=== PATIENT | female | born 1940 | race Caucasian/White ===

== ENCOUNTER 2016-12-28 15:07 | Inpatient (IN) ==
[2016-12-28] MEDS ORDERED: Ipratropium/Albuterol Neb 3 ML IH ONE (15:22)
[2016-12-28] MEDS ORDERED: methylPREDNISolone 125 MG/2 ML VIAL IVP ONE (15:22)
[2016-12-28 16:24] LABS: Basophils % 0.3 %; Eosinophils # 0.1 K/mcL (0.0-0.6); Eosinophils % 2.3 %; Hematocrit 37.1 % (35.3-44.9); Hemoglobin 11.7 g/dL (11.5-15.4); Immature Granulocytes % 0.3 % (0-4); Lymphocytes # 1.1 K/mcL (0.6-4.6); Lymphocytes % 18.6 %; Mean Corpuscular HGB Conc 31.5 g/dL (31.6-35.5); Mean Corpuscular Hemoglobin 30.3 pg (28.0-33.3); Mean Corpuscular Volume 96.1 fL (83.0-100.0); Monocytes # 0.5 K/mcL (0.0-1.3); Monocytes % 8.9 %; Platelet Count 183 K/mcL (140-400); Red Blood Count 3.86 M/mcL (3.82-4.97); Red Cell Distribution Width 13.1 % (11.5-14.5); Segmented Neutrophils % 69.6 %
[2016-12-28 16:32] LABS: INR 2.8; Prothrombin Time 31.6 Seconds (9.4-12.1)
[2016-12-28 16:34] LABS: BUN/Creatinine Ratio 21 (6-26); Blood Urea Nitrogen 13 mg/dL (7-20); Calcium 8.9 mg/dL (8.6-10.8); Carbon Dioxide 38 mEq/L (19-29); Chloride 89 mEq/L (98-109); Glucose 83 mg/dL (70-99); Osmolality,Calculated 277 (280-300); Potassium 4.4 mEq/L (3.5-4.5); Sodium 134 mEq/L (136-145); eGFR For African Americans > 60 (> 60); eGFR For Non-African Americans > 60 (> 60)
--- NOTE | 2016-12-28 16:52 | Emergency Department Note ---
Disposition Clinical Impression: COPD exacerbation Disposition: Admitted As Inpatient Condition: Fair SOB HPI - General Chief Complaint: ED Shortness of Breath/Dyspnea Stated Complaint: NASRIN Time Seen by Provider: 12/28/16 15:17 Source: EMS Limitations: no limitations Nursing Notes Reviewed: Yes Vital Signs Reviewed: Yes - History of Present Illness Patient is here for evaluation of shortness of breath. Patient has had several episodes similar secondary to COPD exacerbation. Patient states that it is been progressive over the last couple days. Cough that is nonproductive in nature. Patient is in the room speaks full sentences but does appear winded. Patient has end-stage COPD body type regarding retracted supra clavicular muscles and using intercostal muscles in the tripod position. Patient has overall decrease in breath sounds with wheezing most significant on the right. - Related Data Home Medications Medication Instructions Recorded Confirmed Albuterol Sulfate [Albuterol 2 puff IH Q4H PRN 08/10/15 12/28/16 Inhaler] Aspirin Enteric Coated [Aspirin EC] 81 mg PO DAILY 08/10/15 12/28/16 Furosemide 40 mg PO BID 08/10/15 12/28/16 Ipratropium/Albuterol Sulfate 1 puff IH QID 08/10/15 12/28/16 [Combivent Respimat Inhal [place]] Metoprolol Succinate 100 mg PO DAILY #0 08/10/15 12/28/16 Warfarin [Coumadin] 3.5 mg PO SUTH 08/10/15 12/28/16 Ipratropium/Albuterol Neb [Duoneb] 3 ml IH QID PRN 12/28/16 12/28/16 Oxygen 2 l NS AD 12/28/16 12/28/16 Warfarin [Coumadin] 3 mg PO MOTUWEFRSA 12/28/16 12/28/16 Allergies Allergy/AdvReac Type Severity Reaction Status Date / Time Erythromycin Base AdvReac Unknown Verified 12/28/16 17:02 nicotine [From Nicoderm CQ] AdvReac Rash Verified 12/28/16 17:02 All systems ED: reviewed and negative except as stated. Constitutional: Reports: chills. Denies: fever Cardiovascular: Reports: palpitations Respiratory: Reports: cough, dyspnea, wheezes Gastrointestinal: Denies: abdominal pain, nausea, vomiting Genitourinary: Denies: urgency Endocrine: Denies: fatigue Past Medical History - Past Medical History Medical history: Reports: atrial fibrillation, CHF, COPD, hyperlipidemia, hypertension Surgical history: Reports: cancer surgery, knee replacement, orthopedic, other Psychiatric history: Reports: no psych history - Social History Smoking Status: Former smoker Smokeless Tobacco Status: No Alcohol use: Reports: none Drug use: Reports: none Physical Exam - General Limitations: no limitations General appearance: alert - Head Head exam: atraumatic, normocephalic - Eye Eye exam: Present: normal appearance - ENT ENT exam: normal exam, normal oropharynx - Neck Neck exam: Present: normal inspection - Chest Chest inspection: Present: normal inspection - Respiratory Respiratory exam: Present: respiratory distress, wheezes (Diffuse with overall decreased breath sounds.) - Cardiovascular Cardiovascular exam: Present: tachycardia, irregular rhythm - Abdominal Exam Abdominal exam: Present: soft, Non-Tender - Extremities Exam Extremities exam: Present: normal inspection, pedal edema. Absent: tenderness - Back Exam Back exam: Present: normal inspection - Neurological Exam Neurological exam: Present: alert, oriented X3 - Psychiatric Psychiatric exam: Present: normal affect, normal mood - Skin Skin exam: Present: warm, dry Course - Reevaluation(s) Reevaluation #1: Patient with moderate improvement with DuoNeb's. Patient still mildly tachypnic and will will need further evaluation hospital - Consultations Consultation #1: Discussed with Dr. Menjivar. Pt accepted for admission. Vital Signs Temperature 98.0 F 12/28/16 15:08 Pulse Rate 112 12/28/16 15:08 Respiratory Rate 24 12/28/16 15:08 Blood Pressure 102/64 12/28/16 15:08 O2 Sat by Pulse Oximetry 98 12/28/16 15:08 Temperature 97.6 F 12/29/16 00:00 Pulse Rate 108 12/29/16 05:00 Respiratory Rate 18 12/29/16 05:00 Blood Pressure 102/76 12/29/16 05:00 O2 Sat by Pulse Oximetry 99 12/29/16 06:09 Oxygen Delivery Oxygen Delivery Nasal Cannula Shortness of Breath/Dyspnea - Medical Records Medical records reviewed: Yes I reviewed the patient's medical records. - Lab Data Lab results reviewed: Yes I reviewed the patient's lab results. Result diagrams: 12/29/16 06:22 12/29/16 06:22 Lab Results 12/28/16 12/28/1612/28/17 Range/Units 16:02 16:02 16:02 WBC 5.7 (4.3-11.1) K/mcL RBC 3.86 (3.82-4.97) M/mcL Hgb 11.7 (11.5-15.4) g/dL Hct 37.1 (35.3-44.9) % MCV 96.1 (83.0-100.0) fL MCH 30.3 (28.0-33.3) pg MCHC 31.5 L (31.6-35.5) g/dL RDW 13.1 (11.5-14.5) % Plt Count 183 (140-400) K/mcL MPV 10.0 (9.4-12.4) fL Immature Gran % 0.3 (0-4) % Seg Neutrophils % 69.6 % Lymphocytes % 18.6 % Monocytes % 8.9 % Eosinophils % 2.3 % Basophils % 0.3 % Neutrophils # 4.0 (1.6-8.9) K/mcL Lymphocytes # 1.1 (0.6-4.6) K/mcL Monocytes # 0.5 (0.0-1.3) K/mcL Eosinophils # 0.1 (0.0-0.6) K/mcL Basophils # 0.0 (0.0-0.2) K/mcL PT 31.6 H (9.4-12.1) Seconds INR 2.8 Sodium 134 L (136-145) mEq/L Potassium 4.4 (3.5-4.5) mEq/L Chloride 89 L (98-109) mEq/L Carbon Dioxide 38 H (19-29) mEq/L BUN 13 (7-20) mg/dL Creatinine 0.62 (0.57-1.11) mg/dL Est GFR ( Amer) > 60 (> 60) Est GFR (Non-Af Amer) > 60 (> 60) BUN/Creatinine Ratio 21 (6-26) Glucose 83 (70-99) mg/dL Calculated Osmolality 277 L (280-300) Calcium 8.9 (8.6-10.8) mg/dL Troponin I (0-0.03) ng/mL B-Natriuretic Peptide (0-100) pg/mL 12/28/16 12/28/16 Range/Units 16:02 16:02 WBC (4.3-11.1) K/mcL RBC (3.82-4.97) M/mcL Hgb (11.5-15.4) g/dL Hct (35.3-44.9) % MCV (83.0-100.0) fL MCH (28.0-33.3) pg MCHC (31.6-35.5) g/dL RDW (11.5-14.5) % Plt Count (140-400) K/mcL MPV (9.4-12.4) fL Immature Gran % (0-4) % Seg Neutrophils % % Lymphocytes % % Monocytes % % Eosinophils % % Basophils % % Neutrophils # (1.6-8.9) K/mcL Lymphocytes # (0.6-4.6) K/mcL Monocytes # (0.0-1.3) K/mcL Eosinophils # (0.0-0.6) K/mcL Basophils # (0.0-0.2) K/mcL PT (9.4-12.1) Seconds INR Sodium (136-145) mEq/L Potassium (3.5-4.5) mEq/L Chloride (98-109) mEq/L Carbon Dioxide (19-29) mEq/L BUN (7-20) mg/dL Creatinine (0.57-1.11) mg/dL Est GFR ( Amer) (> 60) Est GFR (Non-Af Amer) (> 60) BUN/Creatinine Ratio (6-26) Glucose (70-99) mg/dL Calculated Osmolality (280-300) Calcium (8.6-10.8) mg/dL Troponin I 0.01 (0-0.03) ng/mL B-Natriuretic Peptide 733 H (0-100) pg/mL - Radiology Data Radiology results reviewed: Yes I reviewed the patient's radiology results. Chest X-Ray 12/28/16 15:22 IMPRESSION: 1. Emphysema. No superimposed acute pulmonary finding to account for patient's shortness of breath. 2. Stable mild enlargement of the cardiac silhouette. D/ / Nicolás Contreras MD / Nicolás Contreras MD Interpreting Provider: Nicolás Contreras MD - EKG Data EKG attestation: Yes I reviewed and interpreted this EKG. EKG results narrative: EKG shows atrial fibrillation with rapid ventricular response. Rate of 124. QRS 101. QTC 397. Mild depressions in the lead of V4. Incomplete right renal branch block consistent with prior EKG of 08/10/15. Attestation Statement - Attestation Attestation: I examined this patient and my medical decision-making was reviewed with the [employer]/PA/Advanced Practice Nurse/Resident Physician. I agree with the documented findings, disposition and treatment plan as described except to the extent set forth below. Patient to the emergency department with a chief complaint of shortness of breath. Dry cough. States she is trying to cough up phlegm but she cannot. No fever. On examination she is dyspneic. Diffuse expiratory wheezing. Tachypneic. Plan. Patient improved with nebs. Requiring 3 L of oxygen. Will be admitted.
[2016-12-28] MEDS ORDERED: Naloxone 0.4 MG/ML INJ IVP PRN (19:34)
[2016-12-28] MEDS ORDERED: Ipratropium/Albuterol Neb 3 ML IH PRN (19:36)
--- NOTE | 2016-12-28 20:43 | Internal Med Progress Note ---
Date of Encounter: 12/28/16 Time of Encounter: 19:45 - Constitutional Vitals: Temp Pulse Resp BP Pulse Ox 98.1 F 117 22 111/85 94 L 12/28/16 18:04 12/28/16 18:04 12/28/16 19:55 12/28/16 18:04 12/28/16 19:55 Internal Medicine: Result - Labs CBC & Chem 7: 12/28/16 16:02 12/28/16 16:02 - ABG Interpretation ABG results: PT/INR, D-dimer PT 31.6 Seconds (9.4-12.1) H 12/28/16 16:02 Consult Discharge Plan - Plan Referrals: Narcisa Ramos, [employer] [Primary Care Provider] -
[2016-12-28] MEDS ORDERED: NON-FORMULARY MEDICATION 1 EACH EACH (Oxygen [Oxygen] 2 L) NS SCH (20:45)
--- NOTE | 2016-12-28 20:46 | Internal Med History&Physical ---
Date of Encounter: 12/28/16 Time of Encounter: 19:45 Assessment and Plan (1) Acute and chronic respiratory failure ([id number]) Current visit: Yes Status: Acute Admit inpatient. Due to acute exacerbation of COPD. Continue O2 supplementation. Treat underlying COPD. Patient at high risk for complications. She will stay in hospital for at least 2 nights. Qualifiers: Respiratory failure complication: hypoxia Qualified Code(s): J96.21 - Acute and chronic respiratory failure with hypoxia (2) A-fib Current visit: Yes Status: Acute Atrial fibrillation with rapid rate response. Will start patient on IV Cardizem drip. Also on metoprolol for rate control. On Coumadin for anticoagulation and INR is therapeutic. Qualifiers: Atrial fibrillation type: persistent Qualified Code(s): I48.1 - Persistent atrial fibrillation (3) Acute exacerbation of chronic obstructive pulmonary disease (COPD) Current visit: Yes Status: Acute Acute exacerbation of COPD. Will treat with IV steroids, scheduled and when necessary bronchodilator. Patient not having sputum production. We will hold off on antibiotics for now. (4) DVT prophylaxis Current visit: No Status: Acute On Coumadin (5) Atrial fibrillation with rapid ventricular response Current visit: Yes Status: Acute Internal Medicine - H&P: HPI Chief complaint: Shortness of breath Admitted From: Emergency Dept Plans for Post Hospital Care: Home History of present illness: Ms. Loomis is a 76 year old female with history of COPD and chronic respiratory failure on 2 L home oxygen, atrial fibrillation presented to the ER with complaints of worsening shortness of breath over the past couple of days. She denies any palpitations or chest pain. She has been having dry cough. No fever chills or night sweats. No hemoptysis. No nausea or vomiting. She has been wheezing and has been using her bronchodilators frequently. Past Med Surg Social Fam HX - Past Medical History Medical history: atrial fibrillation, CHF, COPD, hyperlipidemia, hypertension Psychiatric history: no psych history - Past Surgical History Surgical History: cancer surgery, knee replacement, orthopedic, other - Social History Smoking Status: Former smoker Smokeless Tobacco Status: No Alcohol use: none Drug use: none - Family History Father History Unknown: Yes Living Status: Age at : 79 Cause of : CVA Hx Family Cardiac Disorders: Yes Hx Family Respiratory Disorders: No Hx Family Cancer: No Hx Family GI Disorders: No Hx Family Genitourinary Disorders: No Hx Family Endocrine Disorder: Yes (DM) Hx Family Musculoskeletal Disorders: No Hx Family Neuromuscular Disorders: No Hx Family Neurologic Disorders: No Hx Family HEENT Disorders: No Hx Family Autoimmune Disorders: No Hx Family Reproductive Disorders: No Hx Family Psychosocial Disorders: No Hx Family Medical Disorders: No Mother History Unknown: Yes Living Status: Age at : 78 Cause of : Heart failure Hx Family Cardiac Disorders: Yes Hx Family Respiratory Disorders: Yes Hx Family Cancer: No Hx Family GI Disorders: No Hx Family Genitourinary Disorders: No Hx Family Endocrine Disorder: No Hx Family Musculoskeletal Disorders: No Hx Family Neuromuscular Disorders: No Hx Family Neurologic Disorders: No Hx Family HEENT Disorders: No Hx Family Autoimmune Disorders: No Hx Family Reproductive Disorders: No Hx Family Psychosocial Disorders: No Hx Family Medical Disorders: No Internal Medicine - H&P: Meds Albuterol Sulfate [Albuterol Inhaler] 2 puff IH Q4H PRN 08/10/15 [History] Aspirin Enteric Coated [Aspirin EC] 81 mg PO DAILY 08/10/15 [History] Furosemide 40 mg PO BID 08/10/15 [History] Ipratropium/Albuterol Sulfate [Combivent Respimat Inhal [place]] 1 puff IH QID [History] Metoprolol Succinate 100 mg PO DAILY #0 08/10/15 [History] Warfarin [Coumadin] 3.5 mg PO SUTH 08/10/15 [History] Ipratropium/Albuterol Neb [Duoneb] 3 ml IH QID PRN 12/28/16 [History] Oxygen 2 l NS AD 12/28/16 [History] Warfarin [Coumadin] 3 mg PO MOTUWEFRSA 12/28/16 [History] Allergies Erythromycin Base Adverse Reaction (Verified 12/28/16 17:02) Unknown patient unsure nicotine [From Nicoderm CQ] Adverse Reaction (Verified 12/28/16 17:02) Rash All Systems PM: A 10-system review of systems was performed and is negative for pertinent findings except as documented above in the HPI. - Constitutional Constitutional: malaise, no chills, no fever(s), no night sweats - EENT Eyes: no change in vision, no discharge, no pain, no photophobia Ears: no ear discharge, no ear pain, no tinnitus Nose, mouth and throat: no dysphagia, no nasal discharge, no neck pain, no sore throat - Cardiovascular Cardiovascular ROS IM: no chest pain, no diaphoresis, no dyspnea, no lightheadedness, no palpitations, no syncope - Respiratory Respiratory: cough, dyspnea, wheezing, no excessive phlegm production - Gastrointestinal Gastrointestinal: no abdominal pain, no diarrhea, no hematemesis, no hematochezia, no melena, no nausea, no vomiting - Genitourinary Genitourinary: no change in urinary stream, no dysuria, no flank pain, no hematuria - Musculoskeletal Musculoskeletal ROS IM: no numbness, no tingling - Integumentary Integumentary IM: no rash, no unusual bruising - Neurological Neurological ROS: no confusion, no convulsions, no focal weakness, no numbness, no tingling, no tremor(s) - Hematologic/Lymphatic Hematologic/Lymphatic: no easy bruising - Constitutional Vitals: Temp Pulse Resp BP Pulse Ox 98.1 F 117 22 111/85 94 L 12/28/16 18:04 12/28/16 18:04 12/28/16 19:55 12/28/16 18:04 12/28/16 19:55 General appearance: Present: cooperative, A&O X 3, answers questions appropriately Exam: Moderate distress - Eye Eye exam: Present: EOMI, PERRL, conjuntiva pink, sclera anicteric - Neck Neck exam general surgery: Present: supple, trachea midline. Absent: lymphadenopathy - Respiratory Respiratory exam: Present: prolonged expiratory phase, wheezes (Bilateral end expiratory wheezes). Absent: accessory muscle use, rales, rhonchi - Cardiovascular Cardiovascular exam: Present: irregular rhythm, +S1, +S2, tachycardia. Absent: diastolic murmur, gallop, rubs, systolic murmur - Extremities Exam Extremities exam: Present: warm, radial pulses palpable and symetrical. Absent : calf tenderness, cyanotic, pedal edema - Neurological Exam Neurological exam: Present: alert, CN II-XII intact, oriented X3, no focal deficits. Absent: facial droop, speech deficit - Skin Skin exam: Present: dry, intact Internal Med - H&P Results - Labs CBC & Chem 7: 12/28/16 16:02 12/28/16 16:02 - Attending Attestation This document has been at least partially created by [employer] recognition technology by Dr. Calvert. Errors in grammar, wording or other phrases may exist. If errors are found after the documentation is signed, they will be addressed individually in the addendum section of this document when appropriate.
[2016-12-28] MEDS: *HR* Warfarin 3 MG TABLET PO STA ×2 (21:21→21:34)
[2016-12-28] MEDS: Furosemide 40 MG TABLET PO SCH ×2 (21:21→21:34)
[2016-12-28] MEDS ORDERED: 0.9 % Sodium Chloride 1,000 ML ONE (21:45)
[2016-12-28] MEDS: methylPREDNISolone 125 MG/2 ML VIAL IVP SCH (23:18)
[2016-12-29] MEDS: Ipratropium/Albuterol Neb 3 ML IH SCH ×7 (00:04→23:50)
[2016-12-29 07:04] LABS: Basophils % 0.3 %; Hemoglobin 11.5 g/dL (11.5-15.4); Immature Granulocytes % 0.5 % (0-4); Lymphocytes # 0.6 K/mcL (0.6-4.6); Lymphocytes % 15.4 %; Mean Corpuscular HGB Conc 31.1 g/dL (31.6-35.5); Mean Corpuscular Hemoglobin 29.8 pg (28.0-33.3); Mean Corpuscular Volume 95.9 fL (83.0-100.0); Monocytes # 0.1 K/mcL (0.0-1.3); Monocytes % 2.6 %; Neutrophils # 3.1 K/mcL (1.6-8.9); Platelet Count 176 K/mcL (140-400); Red Blood Count 3.86 M/mcL (3.82-4.97); Red Cell Distribution Width 12.8 % (11.5-14.5); Segmented Neutrophils % 81.2 %
[2016-12-29 07:06] LABS: INR 2.8; Prothrombin Time 31.4 Seconds (9.4-12.1)
[2016-12-29 07:18] LABS: BUN/Creatinine Ratio 21 (6-26); Blood Urea Nitrogen 13 mg/dL (7-20); Calcium 8.6 mg/dL (8.6-10.8); Carbon Dioxide 33 mEq/L (19-29); Chloride 94 mEq/L (98-109); Glucose 138 mg/dL (70-99); Osmolality,Calculated 282 (280-300); Potassium 4.4 mEq/L (3.5-4.5); Sodium 135 mEq/L (136-145); eGFR For African Americans > 60 (> 60); eGFR For Non-African Americans > 60 (> 60)
[2016-12-29] MEDS ORDERED: Metoprolol 100 MG TABLET PO SCH (09:00)
[2016-12-29] MEDS: methylPREDNISolone 125 MG/2 ML VIAL IVP SCH ×3 (09:00→23:03)
[2016-12-29] MEDS: Aspirin Enteric Coated 81 MG Tablet PO SCH (09:01)
[2016-12-29] MEDS: Furosemide 40 MG TABLET PO SCH ×2 (09:01→17:34)
[2016-12-29] MEDS ORDERED: *HR* Digoxin 0.25 MG TABLET PO SCH (09:30)
--- NOTE | 2016-12-29 12:27 | Electrocardiograph Report ---
[address] [place], [place] [address] Test Date: 2016-12-28 Pat Name: Germaine Loomis Department: 105 Room: 2NE22 Gender: F [employer]: : [id number] Requested By: Justin Arteaga Order Number: [id number] Reading MD: Andreas De MD Measurements Intervals [place] Rate: 124 P: ME: 0 QRS: 89 QRSD: 101 T: 34 QT: 323 QTc: 397 Interpretive Statements ATRIAL FIBRILLATION WITH RAPID VENTRICULAR RESPONSE INDETERMINATE AXIS INCOMPLETE RIGHT BUNDLE BRANCH BLOCK BASELINE ARTIFACT Electronically Signed On 12-29-2016 12:25:23 EST by Andreas De MD
[2016-12-29] MEDS: *HR* Digoxin 0.5 MG/2 ML AMPUL IVP SCH ×2 (15:05→21:03)
--- NOTE | 2016-12-29 16:28 | Internal Med Progress Note ---
Date of Encounter: 12/29/16 Time of Encounter: 10:00 - Assessment and plan (1) DVT prophylaxis Current Visit: Yes Status: Acute Assessment and plan: Patient is on Coumadin. INR is therapeutic (2) Acute exacerbation of chronic obstructive pulmonary disease (COPD) Current Visit: Yes Status: Acute Assessment and plan: Has improved after treatment. We will continue IV steroids, bronchodilator, and oxygen supportive therapy. (3) Atrial fibrillation with rapid ventricular response Current Visit: Yes Status: Acute Assessment and plan: Still having tachycardia. Cardizem drip is on hold because of hypotension. On digoxin. We will also treat underlying COPD exacerbation. Closer follow-up vitals and heart rate. On Coumadin for anticoagulation, INR is therapeutic. (4) Diastolic CHF Current Visit: No Status: Chronic Assessment and plan: Continue home medications. Qualifiers: Congestive heart failure chronicity: chronic Qualified Code(s): I50.32 - Chronic diastolic (congestive) heart failure - Time Spent With Patient 25 - 35 minutes - Subjective Interval history: Patient is a 76-year-old female admitted for shortness of breath. Patient was found afebrile with rapid response in emergency room. Past medical history is significant for A. fib, CHF, COPD, hyperlipidemia, hypertension. I saw and examined the patient. She is still in acute respiratory distress, heart rate is still high. BP is at lower side at 80s. Cardizem drip is on hold because BP is low. Will give patient digoxin 0.25 mg iv q6hr x 4. Continue Solumendrol for COPD exacerbation. - Constitutional Vitals: Temp Pulse Resp BP Pulse Ox 98.2 F 121 18 101/72 96 12/29/16 15:24 12/29/16 15:24 12/29/16 15:24 12/29/16 15:24 12/29/16 15:24 General appearance: Present: cooperative, A&O X 3, answers questions appropriately - Head Head exam: Present: atraumatic, normocephalic - Eye Eye exam: Present: PERRL, conjuntiva pink, sclera anicteric Pupils: Present: PERRL - Neck Neck exam general surgery: Present: supple, trachea midline. Absent: lymphadenopathy - Respiratory Respiratory exam: Present: CTAB. Absent: accessory muscle use, rales, rhonchi, wheezes - Cardiovascular Cardiovascular exam: Present: irregular rhythm, +S1, +S2, tachycardia. Absent: diastolic murmur, gallop, rubs, systolic murmur - GI/Abdominal GI/Abdominal exam: Present: normal bowel sounds, soft, no peritoneal signs. Absent: distended, tenderness - Extremities Exam Extremities exam: Present: warm, radial pulses palpable and symetrical. Absent : calf tenderness, cyanotic, pedal edema - Neurological Exam Neurological exam: Present: CN II-XII intact, oriented X3, no focal deficits. Absent: pronater drift, facial droop, speech deficit - Skin Skin exam: Present: dry, intact Internal Medicine: Result - Labs CBC & Chem 7: 12/29/16 06:22 12/29/16 06:22 - ABG Interpretation ABG results: PT/INR, D-dimer PT 31.4 Seconds (9.4-12.1) H 12/29/16 06:22 Consult Discharge Plan - Plan Referrals: Narcisa Ramos CNP [Primary Care Provider] -
[2016-12-29] MEDS ORDERED: *HR* Warfarin 3 MG TABLET PO SCH (18:00)
[2016-12-29] MEDS ORDERED: Warfarin perPT PO PRN (18:00)
[2016-12-29] MEDS: Levofloxacin 750 MG/150 ML 750 MG/150 ML BAG IVPB SCH (21:04)
[2016-12-30] MEDS: *HR* Digoxin 0.5 MG/2 ML AMPUL IVP SCH (02:15)
[2016-12-30] MEDS: Ipratropium/Albuterol Neb 3 ML IH SCH ×2 (03:32→07:26)
[2016-12-30 05:29] LABS: Basophils % 0.1 %; Hematocrit 31.6 % (35.3-44.9); Hemoglobin 10.5 g/dL (11.5-15.4); Immature Granulocytes % 0.7 % (0-4); Lymphocytes # 0.5 K/mcL (0.6-4.6); Lymphocytes % 5.5 %; Mean Corpuscular HGB Conc 33.2 g/dL (31.6-35.5); Mean Corpuscular Hemoglobin 30.8 pg (28.0-33.3); Mean Corpuscular Volume 92.7 fL (83.0-100.0); Mean Platelet Volume 10.4 fL (9.4-12.4); Monocytes # 0.3 K/mcL (0.0-1.3); Monocytes % 3.2 %; Neutrophils # 7.5 K/mcL (1.6-8.9); Platelet Count 165 K/mcL (140-400); Red Blood Count 3.41 M/mcL (3.82-4.97); Red Cell Distribution Width 12.8 % (11.5-14.5); Segmented Neutrophils % 90.5 %
[2016-12-30 05:41] LABS: INR 4.8; Prothrombin Time 54.3 Seconds (9.4-12.1)
[2016-12-30 05:52] LABS: BUN/Creatinine Ratio 24 (6-26); Blood Urea Nitrogen 15 mg/dL (7-20); Calcium 8.3 mg/dL (8.6-10.8); Carbon Dioxide 34 mEq/L (19-29); Chloride 91 mEq/L (98-109); Glucose 119 mg/dL (70-99); Osmolality,Calculated 282 (280-300); Potassium 3.8 mEq/L (3.5-4.5); Sodium 135 mEq/L (136-145); eGFR For African Americans > 60 (> 60); eGFR For Non-African Americans > 60 (> 60)
[2016-12-30] MEDS: methylPREDNISolone 125 MG/2 ML VIAL IVP SCH ×2 (09:35→16:52)
[2016-12-30] MEDS: Furosemide 40 MG TABLET PO SCH ×2 (09:36→16:52)
[2016-12-30] MEDS: Levofloxacin 750 MG/150 ML 750 MG/150 ML BAG IVPB SCH (09:36)
[2016-12-30] MEDS: Aspirin Enteric Coated 81 MG Tablet PO SCH (09:36)
[2016-12-30] MEDS: Budesonide/Formoterol 160/4.5 MDI IH SCH ×3 (11:35→23:06)
[2016-12-30] MEDS: Levalbuterol Neb 1.25 MG/3 ML IH SCH ×3 (11:35→22:56)
--- NOTE | 2016-12-30 17:02 | Internal Med Progress Note ---
Date of Encounter: 12/30/16 Time of Encounter: 10:00 - Assessment and plan (1) DVT prophylaxis Current Visit: Yes Status: Acute Assessment and plan: Patient is on Coumadin. INR is therapeutic (2) Acute exacerbation of chronic obstructive pulmonary disease (COPD) Current Visit: Yes Status: Acute Assessment and plan: Has improved after treatment. We will continue IV steroids, bronchodilator, and oxygen supportive therapy. Add Levaquin and Symbicort. (3) Atrial fibrillation with rapid ventricular response Current Visit: Yes Status: Acute Assessment and plan: Rate is well controlled now. Continue by mouth metoprolol. Patient said the Cardizem makes her sick. We will also treat underlying COPD exacerbation. Closer follow-up vitals and heart rate. On Coumadin for anticoagulation, INR is therapeutic. (4) Diastolic CHF Current Visit: No Status: Chronic Assessment and plan: Continue home medications. Qualifiers: Congestive heart failure chronicity: chronic Qualified Code(s): I50.32 - Chronic diastolic (congestive) heart failure - Time Spent With Patient 25 - 35 minutes - Subjective Interval history: Patient is a 76-year-old female admitted for shortness of breath. Patient was found afebrile with rapid response in emergency room. Past medical history is significant for A. fib, CHF, COPD, hyperlipidemia, hypertension. I saw and examined the patient. She is still in acute respiratory distress, heart rate get down to 90s. BP is at lower side at 90s by the tolerate metoprolol 50 mg. At the Levaquin and Symbicort for COPD exacerbation. Continue Solumendrol. - Constitutional Vitals: Temp Pulse Resp BP Pulse Ox 98.2 F 86 16 110/83 96 12/30/16 15:26 12/30/16 15:26 12/30/16 15:26 12/30/16 15:26 12/30/16 15:26 General appearance: Present: cooperative, A&O X 3, answers questions appropriately - Head Head exam: Present: atraumatic, normocephalic - Eye Eye exam: Present: PERRL, conjuntiva pink, sclera anicteric Pupils: Present: PERRL - Neck Neck exam general surgery: Present: supple, trachea midline. Absent: lymphadenopathy - Respiratory Respiratory exam: Present: CTAB, wheezes (Wheezes bilaterally). Absent: accessory muscle use, rales, rhonchi - Cardiovascular Cardiovascular exam: Present: RRR, +S1, +S2. Absent: diastolic murmur, gallop, rubs, systolic murmur - GI/Abdominal GI/Abdominal exam: Present: normal bowel sounds, soft, no peritoneal signs. Absent: distended, tenderness - Extremities Exam Extremities exam: Present: warm, radial pulses palpable and symetrical. Absent : calf tenderness, cyanotic, pedal edema - Neurological Exam Neurological exam: Present: CN II-XII intact, oriented X3, no focal deficits. Absent: pronater drift, facial droop, speech deficit - Skin Skin exam: Present: dry, intact Internal Medicine: Result - Labs CBC & Chem 7: 12/30/16 04:25 12/30/16 04:25 Labs: Short CBC 12/30/16 Range/Units 04:25 WBC 8.3 D (4.3-11.1) K/mcL Hgb 10.5 L (11.5-15.4) g/dL Hct 31.6 L (35.3-44.9) % Plt Count 165 (140-400) K/mcL Neutrophils # 7.5 (1.6-8.9) K/mcL BMP 12/30/16 04:25 Sodium 135 L Potassium 3.8 Chloride 91 L Carbon Dioxide 34 H BUN 15 Creatinine 0.62 Glucose 119 H Calcium 8.3 L - ABG Interpretation ABG results: PT/INR, D-dimer PT 54.3 Seconds (9.4-12.1) H* D 12/30/16 04:25 Consult Discharge Plan - Plan Referrals: Narcisa Ramos, [employer] [Primary Care Provider] -
[2016-12-31] MEDS: methylPREDNISolone 125 MG/2 ML VIAL IVP SCH ×3 (03:28→18:05)
[2016-12-31] MEDS: Levalbuterol Neb 1.25 MG/3 ML IH SCH ×4 (04:03→22:01)
[2016-12-31 06:49] LABS: Hematocrit 37.1 % (35.3-44.9); Hemoglobin 11.6 g/dL (11.5-15.4); Immature Granulocytes % 0.8 % (0-4); Lymphocytes % 5.8 %; Mean Corpuscular HGB Conc 31.3 g/dL (31.6-35.5); Mean Corpuscular Hemoglobin 29.6 pg (28.0-33.3); Mean Corpuscular Volume 94.6 fL (83.0-100.0); Mean Platelet Volume 10.3 fL (9.4-12.4); Monocytes % 6.6 %; Platelet Count 173 K/mcL (140-400); Red Blood Count 3.92 M/mcL (3.82-4.97); Red Cell Distribution Width 12.9 % (11.5-14.5); Segmented Neutrophils % 86.8 %
[2016-12-31 06:50] LABS: Lymphocytes # 0.4 K/mcL (0.6-4.6); Monocytes # 0.5 K/mcL (0.0-1.3); Neutrophils # 6.6 K/mcL (1.6-8.9)
[2016-12-31 06:55] LABS: INR 3.9
[2016-12-31 06:57] LABS: Prothrombin Time 44.3 Seconds (9.4-12.1)
[2016-12-31 07:05] LABS: BUN/Creatinine Ratio 26 (6-26); Blood Urea Nitrogen 16 mg/dL (7-20); Calcium 8.7 mg/dL (8.6-10.8); Chloride 89 mEq/L (98-109); Glucose 96 mg/dL (70-99); Osmolality,Calculated 283 (280-300); Potassium 3.9 mEq/L (3.5-4.5); Sodium 136 mEq/L (136-145); eGFR For African Americans > 60 (> 60); eGFR For Non-African Americans > 60 (> 60)
[2016-12-31 07:08] LABS: Carbon Dioxide 41 mEq/L (19-29)
[2016-12-31] MEDS: Furosemide 40 MG TABLET PO SCH ×2 (08:05→18:05)
[2016-12-31] MEDS: Levofloxacin 750 MG/150 ML 750 MG/150 ML BAG IVPB SCH (08:05)
[2016-12-31] MEDS: Aspirin Enteric Coated 81 MG Tablet PO SCH (08:05)
[2016-12-31 08:21] LABS: ABG Base Excess 19.6 mEq/L (-2.0 to 3.0); ABG HCO3 47.5 mEQ/L (21-27); ABG Oxygen Saturation 88 % (95-98); ABG PH 7.44 pH Units (7.32-7.45); ABG PO2 52 mmHg (85-104); ABG TCO2 49.6 mEq/L (20-26)
[2016-12-31 08:23] LABS: ABG PCO2 70 mmHg (35-45)
[2016-12-31 08:24] LABS: Blood Gas FiO2 34 %
[2016-12-31] MEDS ORDERED: Metoprolol 100 MG TABLET PO SCH (09:00)
[2016-12-31] MEDS: Budesonide/Formoterol 160/4.5 MDI IH SCH ×2 (11:54→22:06)
--- NOTE | 2016-12-31 15:30 | Internal Med Progress Note ---
Date of Encounter: 12/31/16 Time of Encounter: 10:00 - Assessment and plan (1) DVT prophylaxis Current Visit: Yes Status: Acute Assessment and plan: Patient is on Coumadin. Monitor INR (2) Acute exacerbation of chronic obstructive pulmonary disease (COPD) Current Visit: Yes Status: Acute Assessment and plan: Has improved after treatment. We will continue IV steroids, bronchodilator, and oxygen supportive therapy. Add Levaquin and Symbicort. (3) Atrial fibrillation with rapid ventricular response Current Visit: Yes Status: Acute Assessment and plan: Rate is well controlled now. Continue by mouth metoprolol. Patient said the Cardizem makes her sick. We will also treat underlying COPD exacerbation. Closer follow-up vitals and heart rate. On Coumadin for anticoagulation, Monitor INR (4) Diastolic CHF Current Visit: No Status: Chronic Assessment and plan: Continue home medications. Qualifiers: Congestive heart failure chronicity: chronic Qualified Code(s): I50.32 - Chronic diastolic (congestive) heart failure - Subjective Interval history: Patient is a 76-year-old female admitted for shortness of breath. Patient was found a Fib with rapid ventricular response in emergency room. Past medical history is significant for A. fib, CHF, COPD, hyperlipidemia, hypertension. I saw and examined the patient. Her SOB has improved, heart rate get down to 90s. BP is WNL. On abx, steroid and bronchodilator for COPD exacerbation. Will taper down Solumendrol. - Constitutional Vitals: Temp Pulse Resp BP Pulse Ox 98.4 F 92 15 117/78 96 12/31/16 07:00 12/31/16 07:00 12/31/16 07:00 12/31/16 07:00 12/31/16 08:20 General appearance: Present: cooperative, A&O X 3, answers questions appropriately - Head Head exam: Present: atraumatic, normocephalic - Eye Eye exam: Present: PERRL, conjuntiva pink, sclera anicteric Pupils: Present: PERRL - Neck Neck exam general surgery: Present: supple, trachea midline. Absent: lymphadenopathy - Respiratory Respiratory exam: Present: decreased breath sounds (B/l), CTAB. Absent: accessory muscle use, rales, rhonchi, wheezes - Cardiovascular Cardiovascular exam: Present: RRR, +S1, +S2. Absent: diastolic murmur, gallop, rubs, systolic murmur - GI/Abdominal GI/Abdominal exam: Present: normal bowel sounds, soft, no peritoneal signs. Absent: distended, tenderness - Extremities Exam Extremities exam: Present: warm, radial pulses palpable and symetrical. Absent : calf tenderness, cyanotic, pedal edema - Neurological Exam Neurological exam: Present: CN II-XII intact, oriented X3, no focal deficits. Absent: pronater drift, facial droop, speech deficit - Skin Skin exam: Present: dry, intact Internal Medicine: Result - Labs CBC & Chem 7: 12/31/16 05:40 12/31/16 05:40 Labs: Short CBC 12/31/16 Range/Units 05:40 WBC 7.6 (4.3-11.1) K/mcL Hgb 11.6 (11.5-15.4) g/dL Hct 37.1 (35.3-44.9) % Plt Count 173 (140-400) K/mcL Neutrophils # 6.6 (1.6-8.9) K/mcL BMP 12/31/16 05:40 Sodium 136 Potassium 3.9 Chloride 89 L Carbon Dioxide 41 H* BUN 16 Creatinine 0.62 Glucose 96 Calcium 8.7 - ABG Interpretation ABG results: ABG ABG pH 7.44 pH Units (7.32-7.45) 12/31/16 08:14 ABG pCO2 70 mmHg (35-45) H* 12/31/16 08:14 ABG pO2 52 mmHg (85-104) L 12/31/16 08:14 ABG O2 Saturation 88 % (95-98) L 12/31/16 08:14 PT/INR, D-dimer PT 44.3 Seconds (9.4-12.1) H* 12/31/16 05:40 Consult Discharge Plan - Plan Referrals: Narcisa Ramos CNP [Primary Care Provider] -
[2016-12-31] MEDS ORDERED: Levalbuterol Neb 1.25 MG/3 ML IH PRN (22:03)
[2017-01-01] MEDS ORDERED: *HR* Metoprolol 5 MG/5 ML VIAL IVP ONE (03:40)
[2017-01-01] MEDS: Levalbuterol Neb 1.25 MG/3 ML IH SCH ×4 (03:56→20:57)
[2017-01-01 05:49] LABS: INR 3.2; Prothrombin Time 36.2 Seconds (9.4-12.1)
[2017-01-01 05:53] LABS: Hematocrit 39.5 % (35.3-44.9); Hemoglobin 12.8 g/dL (11.5-15.4); Lymphocytes # 0.4 K/mcL (0.6-4.6); Lymphocytes % 5.7 %; Mean Corpuscular HGB Conc 32.4 g/dL (31.6-35.5); Mean Corpuscular Hemoglobin 30.7 pg (28.0-33.3); Mean Corpuscular Volume 94.7 fL (83.0-100.0); Mean Platelet Volume 10.2 fL (9.4-12.4); Monocytes # 0.7 K/mcL (0.0-1.3); Monocytes % 9.8 %; Neutrophils # 5.9 K/mcL (1.6-8.9); Platelet Count 180 K/mcL (140-400); Red Blood Count 4.17 M/mcL (3.82-4.97); Red Cell Distribution Width 12.8 % (11.5-14.5); Segmented Neutrophils % 83.5 %
[2017-01-01 06:01] LABS: BUN/Creatinine Ratio 29 (6-26); Blood Urea Nitrogen 20 mg/dL (7-20); Calcium 8.5 mg/dL (8.6-10.8); Chloride 87 mEq/L (98-109); Glucose 139 mg/dL (70-99); Osmolality,Calculated 291 (280-300); Potassium 3.3 mEq/L (3.5-4.5); Sodium 138 mEq/L (136-145); eGFR For African Americans > 60 (> 60); eGFR For Non-African Americans > 60 (> 60)
[2017-01-01 06:14] LABS: Carbon Dioxide 41 mEq/L (19-29)
[2017-01-01] MEDS: methylPREDNISolone 125 MG/2 ML VIAL IVP SCH ×2 (06:22→20:21)
[2017-01-01] MEDS: Furosemide 40 MG TABLET PO SCH ×2 (08:38→18:09)
[2017-01-01] MEDS: levoFLOXacin 750 MG TABLET PO SCH (08:39)
[2017-01-01] MEDS: Aspirin Enteric Coated 81 MG Tablet PO SCH (08:39)
[2017-01-01] MEDS: Metoprolol XL (24 HR) Succ 50 MG TAB.ER.24H PO SCH (08:39)
[2017-01-01] MEDS: Budesonide/Formoterol 160/4.5 MDI IH SCH (10:38)
--- NOTE | 2017-01-01 16:20 | Internal Med Progress Note ---
Date of Encounter: 01/01/17 Time of Encounter: 10:00 - Assessment and plan (1) DVT prophylaxis Current Visit: Yes Status: Acute Assessment and plan: Patient is on Coumadin. Monitor INR (2) Acute exacerbation of chronic obstructive pulmonary disease (COPD) Current Visit: Yes Status: Acute Assessment and plan: Has improved after treatment. We will continue IV steroids, bronchodilator, and oxygen supportive therapy. Add Levaquin and Symbicort. Old chart has reviewed, patient has a chronic CO2 retention. (3) Atrial fibrillation with rapid ventricular response Current Visit: Yes Status: Acute Assessment and plan: Rate is generally controlled now. Continue by mouth metoprolol. Patient said the Cardizem makes her sick. We will also treat underlying COPD exacerbation. Closer follow-up vitals and heart rate. On Coumadin for anticoagulation, Monitor INR (4) Diastolic CHF Current Visit: No Status: Chronic Assessment and plan: Continue home medications. Qualifiers: Congestive heart failure chronicity: chronic Qualified Code(s): I50.32 - Chronic diastolic (congestive) heart failure - Time Spent With Patient 25 - 35 minutes - Subjective Interval history: Patient is a 76-year-old female admitted for shortness of breath. Patient was found a Fib with rapid ventricular response in emergency room. Past medical history is significant for A. fib, CHF, COPD, hyperlipidemia, hypertension. I saw and examined the patient. Her SOB has improved, heart rate keep arround 100. BP is WNL. On abx, steroid and bronchodilator for COPD exacerbation. Will taper down Solumendrol. - Constitutional Vitals: Temp Pulse Resp BP Pulse Ox 97.6 F 108 18 110/76 94 L 01/01/17 07:49 01/01/17 07:49 01/01/17 16:00 01/01/17 07:49 01/01/17 16:00 General appearance: Present: cooperative, A&O X 3, answers questions appropriately - Head Head exam: Present: atraumatic, normocephalic - Eye Eye exam: Present: PERRL, conjuntiva pink, sclera anicteric Pupils: Present: PERRL - Neck Neck exam general surgery: Present: supple, trachea midline. Absent: lymphadenopathy - Respiratory Respiratory exam: Present: CTAB, wheezes (Scattered wheezes bilaterally). Absent: accessory muscle use, rales, rhonchi - Cardiovascular Cardiovascular exam: Present: RRR, +S1, +S2. Absent: diastolic murmur, gallop, rubs, systolic murmur - GI/Abdominal GI/Abdominal exam: Present: normal bowel sounds, soft, no peritoneal signs. Absent: distended, tenderness - Extremities Exam Extremities exam: Present: warm, radial pulses palpable and symetrical. Absent : calf tenderness, cyanotic, pedal edema - Neurological Exam Neurological exam: Present: CN II-XII intact, oriented X3, no focal deficits. Absent: pronater drift, facial droop, speech deficit - Skin Skin exam: Present: dry, intact Internal Medicine: Result - Labs CBC & Chem 7: 01/01/17 05:14 01/01/17 05:14 Labs: Short CBC 01/01/17 Range/Units 05:14 WBC 7.0 (4.3-11.1) K/mcL Hgb 12.8 (11.5-15.4) g/dL Hct 39.5 (35.3-44.9) % Plt Count 180 (140-400) K/mcL Neutrophils # 5.9 (1.6-8.9) K/mcL BMP 01/01/17 05:14 Sodium 138 Potassium 3.3 L Chloride 87 L Carbon Dioxide 41 H* BUN 20 Creatinine 0.69 Glucose 139 H Calcium 8.5 L - ABG Interpretation ABG results: ABG ABG pH 7.44 pH Units (7.32-7.45) 12/31/16 08:14 ABG pCO2 70 mmHg (35-45) H* 12/31/16 08:14 ABG pO2 52 mmHg (85-104) L 12/31/16 08:14 ABG O2 Saturation 88 % (95-98) L 12/31/16 08:14 PT/INR, D-dimer PT 36.2 Seconds (9.4-12.1) H 01/01/17 05:14 Consult Discharge Plan - Plan Referrals: Narcisa Ramos CNP [Primary Care Provider] -
[2017-01-01] MEDS ORDERED: *HR* Warfarin 3 MG TABLET PO ONE (18:00)
--- NOTE | 2017-01-01 18:06 | Electrocardiograph Report ---
[address] [place], [place] [address] Test Date: 2017-01-01 Pat Name: Germaine Loomis Department: 111 Room: 2NE22 Gender: F Canvas Cutter: : 1940 Requested By: Marielena Laureano Order Number: [id number] Reading MD: Prachi Desai Measurements Intervals [place] Rate: 120 P: FL: 0 QRS: -35 QRSD: 103 T: -60 QT: 277 QTc: 348 Interpretive Statements ATRIAL FIBRILLATION WITH RAPID VENTRICULAR RESPONSE MARKED LEFT AXIS DEVIATION INCOMPLETE RIGHT BUNDLE BRANCH BLOCK SEPTAL MYOCARDIAL INFARCTION, PROBABLY OLD MODERATE T-WAVE ABNORMALITY, CONSIDER ANTERIOR ISCHEMIA Electronically Signed On 01-01-2017 18:04:47 EST by Prachi Desai
[2017-01-01] MEDS ORDERED: Ipratropium/Albuterol Neb 3 ML IH SCH (22:00)
[2017-01-01] MEDS: Ipratropium Neb 0.5 MG NEBULIZER IH SCH (23:21)
[2017-01-02] MEDS: Ipratropium Neb 0.5 MG NEBULIZER IH SCH ×4 (04:07→22:27)
[2017-01-02] MEDS: Levalbuterol Neb 1.25 MG/3 ML IH SCH ×4 (04:07→22:27)
[2017-01-02] MEDS: methylPREDNISolone 125 MG/2 ML VIAL IVP SCH (06:05)
[2017-01-02 06:47] LABS: INR 2.6; Prothrombin Time 28.6 Seconds (9.4-12.1)
[2017-01-02 06:55] LABS: BUN/Creatinine Ratio 29 (6-26); Blood Urea Nitrogen 18 mg/dL (7-20); Calcium 8.4 mg/dL (8.6-10.8); Chloride 86 mEq/L (98-109); Glucose 110 mg/dL (70-99); Magnesium 1.7 mg/dL (1.6-2.6); Osmolality,Calculated 283 (280-300); Potassium 3.7 mEq/L (3.5-4.5); Sodium 135 mEq/L (136-145); eGFR For African Americans > 60 (> 60); eGFR For Non-African Americans > 60 (> 60)
[2017-01-02 07:04] LABS: Carbon Dioxide 41 mEq/L (19-29)
[2017-01-02 07:08] LABS: Hematocrit 40.3 % (35.3-44.9); Hemoglobin 12.7 g/dL (11.5-15.4); Immature Granulocytes % 0.9 % (0-4); Lymphocytes # 0.4 K/mcL (0.6-4.6); Lymphocytes % 5.9 %; Mean Corpuscular HGB Conc 31.5 g/dL (31.6-35.5); Mean Corpuscular Hemoglobin 29.6 pg (28.0-33.3); Mean Corpuscular Volume 93.9 fL (83.0-100.0); Mean Platelet Volume 9.8 fL (9.4-12.4); Monocytes # 0.5 K/mcL (0.0-1.3); Monocytes % 6.9 %; Platelet Count 175 K/mcL (140-400); Red Blood Count 4.29 M/mcL (3.82-4.97); Red Cell Distribution Width 12.7 % (11.5-14.5); Segmented Neutrophils % 86.3 %
[2017-01-02] MEDS: Furosemide 40 MG TABLET PO SCH ×2 (09:11→16:20)
[2017-01-02] MEDS: Aspirin Enteric Coated 81 MG Tablet PO SCH (09:11)
[2017-01-02] MEDS: levoFLOXacin 750 MG TABLET PO SCH (09:11)
[2017-01-02] MEDS: Metoprolol XL (24 HR) Succ 50 MG TAB.ER.24H PO SCH (09:11)
--- NOTE | 2017-01-02 13:13 | Internal Med Progress Note ---
Date of Encounter: 01/02/17 Time of Encounter: 10:00 - Assessment and plan (1) DVT prophylaxis Current Visit: Yes Status: Acute Assessment and plan: Patient is on Coumadin. Monitor INR (2) Acute exacerbation of chronic obstructive pulmonary disease (COPD) Current Visit: Yes Status: Acute Assessment and plan: Has improved after treatment. We will continue IV steroids, bronchodilator, and oxygen supportive therapy. On levaquin. Old chart has reviewed, patient has a chronic CO2 retention. (3) Atrial fibrillation with rapid ventricular response Current Visit: Yes Status: Acute Assessment and plan: Rate is generally controlled now. Continue by mouth metoprolol. Patient said the Cardizem makes her sick. We will also treat underlying COPD exacerbation. Closer follow-up vitals and heart rate. On Coumadin for anticoagulation, Monitor INR (4) Diastolic CHF Current Visit: No Status: Chronic Assessment and plan: Continue home medications. Qualifiers: Congestive heart failure chronicity: chronic Qualified Code(s): I50.32 - Chronic diastolic (congestive) heart failure - Time Spent With Patient 25 - 35 minutes - Subjective Interval history: Patient is a 76-year-old female admitted for shortness of breath. Patient was found a Fib with rapid ventricular response in emergency room. Past medical history is significant for A. fib, CHF, COPD, hyperlipidemia, hypertension. I saw and examined the patient. Her SOB has improved, heart rate keep arround 100. BP is WNL. On abx, steroid and bronchodilator for COPD exacerbation. Will continue to taper down Solumendrol. - Constitutional Vitals: Temp Pulse Resp BP Pulse Ox 97.7 F 84 20 127/90 91 L 01/02/17 07:29 01/02/17 07:29 01/02/17 10:14 01/02/17 07:29 01/02/17 10:14 General appearance: Present: cooperative, A&O X 3, answers questions appropriately - Head Head exam: Present: atraumatic, normocephalic - Eye Eye exam: Present: PERRL, conjuntiva pink, sclera anicteric Pupils: Present: PERRL - Neck Neck exam general surgery: Present: supple, trachea midline. Absent: lymphadenopathy - Respiratory Respiratory exam: Present: CTAB. Absent: accessory muscle use, rales, rhonchi, wheezes - Cardiovascular Cardiovascular exam: Present: RRR, +S1, +S2. Absent: diastolic murmur, gallop, rubs, systolic murmur - GI/Abdominal GI/Abdominal exam: Present: normal bowel sounds, soft, no peritoneal signs. Absent: distended, tenderness - Extremities Exam Extremities exam: Present: warm, radial pulses palpable and symetrical. Absent : calf tenderness, cyanotic, pedal edema - Neurological Exam Neurological exam: Present: CN II-XII intact, oriented X3, no focal deficits. Absent: pronater drift, facial droop, speech deficit - Skin Skin exam: Present: dry, intact Internal Medicine: Result - Labs CBC & Chem 7: 01/02/17 06:12 01/02/17 06:12 Labs: Short CBC 01/02/17 Range/Units 06:12 WBC 6.9 (4.3-11.1) K/mcL Hgb 12.7 (11.5-15.4) g/dL Hct 40.3 (35.3-44.9) % Plt Count 175 (140-400) K/mcL Neutrophils # 6.0 (1.6-8.9) K/mcL BMP 01/02/17 06:12 Sodium 135 L Potassium 3.7 Chloride 86 L Carbon Dioxide 41 H* BUN 18 Creatinine 0.62 Glucose 110 H Calcium 8.4 L - ABG Interpretation ABG results: ABG ABG pH 7.44 pH Units (7.32-7.45) 12/31/16 08:14 ABG pCO2 70 mmHg (35-45) H* 12/31/16 08:14 ABG pO2 52 mmHg (85-104) L 12/31/16 08:14 ABG O2 Saturation 88 % (95-98) L 12/31/16 08:14 PT/INR, D-dimer PT 28.6 Seconds (9.4-12.1) H 01/02/17 06:12 Consult Discharge Plan - Plan Referrals: Narcisa Ramos, KRISTA [Primary Care Provider] -
[2017-01-02] MEDS ORDERED: *HR* Metoprolol 5 MG/5 ML VIAL IVP ONE (16:19)
[2017-01-02] MEDS: MethylPREDNISolone 40 MG/ML VIAL IVP SCH (16:47)
[2017-01-02] MEDS ORDERED: *HR* Warfarin 3 MG TABLET PO ONE (18:00)
[2017-01-03] MEDS: Ipratropium Neb 0.5 MG NEBULIZER IH SCH ×4 (04:57→22:17)
[2017-01-03] MEDS: Levalbuterol Neb 1.25 MG/3 ML IH SCH ×4 (04:57→22:19)
[2017-01-03] MEDS: MethylPREDNISolone 40 MG/ML VIAL IVP SCH ×2 (06:38→17:30)
[2017-01-03 06:41] LABS: INR 2.6; Prothrombin Time 29.4 Seconds (9.4-12.1)
[2017-01-03 06:49] LABS: BUN/Creatinine Ratio 37 (6-26); Blood Urea Nitrogen 22 mg/dL (7-20); Calcium 8.5 mg/dL (8.6-10.8); Chloride 86 mEq/L (98-109); Glucose 103 mg/dL (70-99); Magnesium 1.7 mg/dL (1.6-2.6); Osmolality,Calculated 284 (280-300); Potassium 3.6 mEq/L (3.5-4.5); Sodium 135 mEq/L (136-145); eGFR For African Americans > 60 (> 60); eGFR For Non-African Americans > 60 (> 60)
[2017-01-03 06:59] LABS: Carbon Dioxide 40 mEq/L (19-29)
[2017-01-03 07:06] LABS: Basophils % 0.1 %; Hematocrit 41.7 % (35.3-44.9); Hemoglobin 13.6 g/dL (11.5-15.4); Immature Granulocytes % 0.8 % (0-4); Lymphocytes # 0.8 K/mcL (0.6-4.6); Mean Corpuscular HGB Conc 32.6 g/dL (31.6-35.5); Mean Corpuscular Hemoglobin 30.6 pg (28.0-33.3); Mean Corpuscular Volume 93.7 fL (83.0-100.0); Mean Platelet Volume 10.2 fL (9.4-12.4); Monocytes # 0.9 K/mcL (0.0-1.3); Monocytes % 10.3 %; Platelet Count 181 K/mcL (140-400); Red Blood Count 4.45 M/mcL (3.82-4.97); Red Cell Distribution Width 12.6 % (11.5-14.5); Segmented Neutrophils % 79.8 %
[2017-01-03] MEDS: levoFLOXacin 750 MG TABLET PO SCH (09:13)
[2017-01-03] MEDS: Aspirin Enteric Coated 81 MG Tablet PO SCH (09:13)
[2017-01-03] MEDS: Furosemide 40 MG TABLET PO SCH ×2 (09:13→17:29)
[2017-01-03] MEDS: Metoprolol XL (24 HR) Succ 50 MG TAB.ER.24H PO SCH (09:14)
[2017-01-03] MEDS ORDERED: Metoprolol XL (24 HR) Succ 25 MG TAB.ER.24H PO ONE (10:00)
--- NOTE | 2017-01-03 11:42 | Internal Med Progress Note ---
Date of Encounter: 01/03/17 Time of Encounter: 10:00 - Assessment and plan (1) DVT prophylaxis Current Visit: Yes Status: Acute Assessment and plan: Patient is on Coumadin. Monitor INR (2) Acute exacerbation of chronic obstructive pulmonary disease (COPD) Current Visit: Yes Status: Acute Assessment and plan: Has improved after treatment. We will continue IV steroids, bronchodilator, and oxygen supportive therapy. On levaquin. Old chart has reviewed, patient has a chronic CO2 retention. (3) Atrial fibrillation with rapid ventricular response Current Visit: Yes Status: Acute Assessment and plan: Rate is generally controlled now. Continue by mouth metoprolol, increase dose as BP tolerate. Patient said the Cardizem makes her sick. We will also treat underlying COPD exacerbation. Closer follow-up vitals and heart rate. On Coumadin for anticoagulation, Monitor INR (4) Diastolic CHF Current Visit: No Status: Chronic Assessment and plan: Continue home medications. Qualifiers: Congestive heart failure chronicity: chronic Qualified Code(s): I50.32 - Chronic diastolic (congestive) heart failure - Time Spent With Patient 25 - 35 minutes - Subjective Interval history: Patient is a 76-year-old female admitted for shortness of breath. Patient was found A Fib with rapid ventricular response in emergency room. Past medical history is significant for A. fib, CHF, COPD, hyperlipidemia, hypertension. I saw and examined the patient. Her SOB has improved, heart rate keep arround 100. BP is WNL. On abx, steroid and bronchodilator for COPD exacerbation. Will continue to taper down Solumendrol. Will slightly increase metoprolol dose to get better HR control, closely monitor BP. - Constitutional Vitals: Temp Pulse Resp BP Pulse Ox 98.0 F 108 15 106/73 94 L 01/03/17 07:31 01/03/17 07:31 01/03/17 09:50 01/03/17 07:31 01/03/17 09:50 General appearance: Present: cooperative, A&O X 3, answers questions appropriately - Head Head exam: Present: atraumatic, normocephalic - Eye Eye exam: Present: PERRL, conjuntiva pink, sclera anicteric Pupils: Present: PERRL - Neck Neck exam general surgery: Present: supple, trachea midline. Absent: lymphadenopathy - Respiratory Respiratory exam: Present: decreased breath sounds (B/L), CTAB. Absent: accessory muscle use, rales, rhonchi, wheezes - Cardiovascular Cardiovascular exam: Present: RRR, +S1, +S2. Absent: diastolic murmur, gallop, rubs, systolic murmur - GI/Abdominal GI/Abdominal exam: Present: normal bowel sounds, soft, no peritoneal signs. Absent: distended, tenderness - Extremities Exam Extremities exam: Present: warm, radial pulses palpable and symetrical. Absent : calf tenderness, cyanotic, pedal edema - Neurological Exam Neurological exam: Present: CN II-XII intact, oriented X3, no focal deficits. Absent: pronater drift, facial droop, speech deficit - Skin Skin exam: Present: dry, intact Internal Medicine: Result - Labs CBC & Chem 7: 01/03/17 05:54 01/03/17 05:54 Labs: Short CBC 01/03/17 Range/Units 05:54 WBC 8.7 (4.3-11.1) K/mcL Hgb 13.6 (11.5-15.4) g/dL Hct 41.7 (35.3-44.9) % Plt Count 181 (140-400) K/mcL Neutrophils # 7.0 (1.6-8.9) K/mcL BMP 01/03/17 05:54 Sodium 135 L Potassium 3.6 Chloride 86 L Carbon Dioxide 40 H* BUN 22 H Creatinine 0.59 Glucose 103 H Calcium 8.5 L - ABG Interpretation ABG results: ABG ABG pH 7.44 pH Units (7.32-7.45) 12/31/16 08:14 ABG pCO2 70 mmHg (35-45) H* 12/31/16 08:14 ABG pO2 52 mmHg (85-104) L 12/31/16 08:14 ABG O2 Saturation 88 % (95-98) L 12/31/16 08:14 PT/INR, D-dimer PT 29.4 Seconds (9.4-12.1) H 01/03/17 05:54 Consult Discharge Plan - Plan Referrals: Narcisa Ramos, WASHHOU[employer] WORK[employer] [Primary Care Provider] -
[2017-01-03] MEDS ORDERED: Magnesium Sulfate 2 GM in D5% in Water 100 ML IVPB ONE (15:19)
[2017-01-03] MEDS ORDERED: *HR* Warfarin 3 MG TABLET PO ONE (18:00)
[2017-01-04] MEDS: Ipratropium Neb 0.5 MG NEBULIZER IH SCH ×3 (04:39→16:42)
[2017-01-04] MEDS: Levalbuterol Neb 1.25 MG/3 ML IH SCH ×2 (04:39→10:28)
[2017-01-04] MEDS: MethylPREDNISolone 40 MG/ML VIAL IVP SCH ×2 (04:53→17:31)
[2017-01-04 05:38] LABS: Basophils % 0.1 %; Hematocrit 43.2 % (35.3-44.9); Hemoglobin 13.9 g/dL (11.5-15.4); Immature Granulocytes % 0.8 % (0-4); Lymphocytes # 0.8 K/mcL (0.6-4.6); Lymphocytes % 6.8 %; Mean Corpuscular HGB Conc 32.2 g/dL (31.6-35.5); Mean Corpuscular Hemoglobin 29.6 pg (28.0-33.3); Mean Corpuscular Volume 91.9 fL (83.0-100.0); Mean Platelet Volume 9.8 fL (9.4-12.4); Monocytes % 8.8 %; Neutrophils # 9.3 K/mcL (1.6-8.9); Platelet Count 196 K/mcL (140-400); Red Cell Distribution Width 12.5 % (11.5-14.5); Segmented Neutrophils % 83.5 %
[2017-01-04 05:46] LABS: INR 2.8; Prothrombin Time 30.8 Seconds (9.4-12.1)
[2017-01-04 05:53] LABS: BUN/Creatinine Ratio 36 (6-26); Blood Urea Nitrogen 22 mg/dL (7-20); Calcium 9.1 mg/dL (8.6-10.8); Chloride 83 mEq/L (98-109); Glucose 96 mg/dL (70-99); Osmolality,Calculated 279 (280-300); Potassium 3.2 mEq/L (3.5-4.5); Sodium 133 mEq/L (136-145); eGFR For African Americans > 60 (> 60); eGFR For Non-African Americans > 60 (> 60)
[2017-01-04 05:57] LABS: Carbon Dioxide 45 mEq/L (19-29)
[2017-01-04] MEDS: Aspirin Enteric Coated 81 MG Tablet PO SCH (08:56)
[2017-01-04] MEDS: levoFLOXacin 750 MG TABLET PO SCH (08:57)
[2017-01-04] MEDS: Furosemide 40 MG TABLET PO SCH ×2 (08:57→17:30)
[2017-01-04] MEDS ORDERED: Metoprolol XL (24 HR) Succ 50 MG TAB.ER.24H PO SCH (09:00)
[2017-01-04] MEDS ORDERED: Metoprolol XL (24 HR) Succ 25 MG TAB.ER.24H PO ONE (10:00)
[2017-01-04] MEDS ORDERED: Ipratropium/Albuterol Neb 3 ML IH PRN ×2 (13:38→13:40)
--- NOTE | 2017-01-04 15:16 | Cardiology Consult Note ---
Date of Encounter: 01/04/17 Time of Encounter: 14:30 Assessment and Plan (1) COPD exacerbation Current Visit: Yes Status: Acute Per cardiology: -Known history of COPD. -Acute exacerbation. -Decreased lung sounds. -On nebs, antibiotics, and steroids. -Chest xray 12/28/16 with emphysema, stable mild enlargement of cardiac silhouette. -On continuous pulse ox. -Short of breath with SpO2 85% with exertion. SpO2 increased to 90% upon resting. Very limited air movement with resp at rest, stable, but concern for potential resp fatigue. -Will repeat chest xray -Follows with Dr. Victor with Pulm-- suspect underlying resp status driving afib with RVR. Will consult pulmonary services. Consider switching nebulizers due to tachycardia. Discussed and reviewed with Dr. Butch Desai. -Management per primary service and pulmonary service. (EJ) (2) Atrial fibrillation with rapid ventricular response Current Visit: Yes Status: Chronic Per cardiology: -Known history of atrial fibrillation follows with . -On coumadin and toprol 100mg po daily as outpatient. -INR therapeutic on admission, today 2.8. -On toprol 150mg po daily as of today (ordered per primary service) -Average heart rate 111 for past 24 hours. -HR 130-140s with exertion. -Echocardiogram pending. -K 3.3, replaced per primary service. -Discussed and reviewed with Dr. Butch Desai with recommendations to increase beta suzie (already done today per primary service). Systolic blood pressure noted to be in the 100s to 110s. We'll initiate IV Lopressor 2.5 mg every 6 hours. Consider addition of Cardizem once echo completed (if clinically warranted and if EF remains preserved)-- patient reports concerns of difficulty with Cardizem in the past, however she could not elaborate as to what the issue is in there are no listed allergies to Cardizem. -Will recheck BMP and TSH tomorrow. -Continue toprol and coumadin. -Will continue to monitor. (EJ) Discussion w patient/family: The assessment and plan as outlined above was discussed with the patient and/or family members who expressed understanding and agreement. All questions were answered. Thank you for involving us in the care of your patient. Please call with any questions. Patient seen and examined with KRISTA Ochoa DIscussed and reviewed with Dr.John Desai. History of Present Illness Consult date: 01/04/17 Requesting physician: Bibiana Duncan Consult reason: afib RVR Chief complaint: Shortness of breath History of present illness: Ms. Loomis is a 76 year old female with a relevant past medical history of a.fib, COPD< CHF, hyperlipidemia, HTN. Patient has been hospitalized for 6 days now. Patint states she was admitted due to worsening shortness of breath. Patient wears O2 at home a 2LPM per nasal cannula. Patient states since her admission her breathing has not improved. Patient has been a.fib since admission with rapid ventricular response. Patient had been managed by hospitalist, today cardiology was consulted. Patient denies dizziness or lightheadedness. Patient states breathing is no better than prior to admission. (EJ). Past Med Surg Social Fam HX - Past Medical History Attestation: Yes The following information was validated with the patient. Source: patient, old records reviewed Medical history: atrial fibrillation, CHF, COPD, hyperlipidemia, hypertension Psychiatric history: no psych history - Past Surgical History Surgical History: cancer surgery, knee replacement, orthopedic, other - Social History Smoking Status: Former smoker Smokeless Tobacco Status: No Alcohol use: none Drug use: none - Family History Father History Unknown: Yes Living Status: Age at : 79 Cause of : CVA Hx Family Cardiac Disorders: Yes Hx Family Respiratory Disorders: No Hx Family Cancer: No Hx Family GI Disorders: No Hx Family Genitourinary Disorders: No Hx Family Endocrine Disorder: Yes (DM) Hx Family Musculoskeletal Disorders: No Hx Family Neuromuscular Disorders: No Hx Family Neurologic Disorders: No Hx Family HEENT Disorders: No Hx Family Autoimmune Disorders: No Hx Family Reproductive Disorders: No Hx Family Psychosocial Disorders: No Hx Family Medical Disorders: No Mother History Unknown: Yes Living Status: Age at : 78 Cause of : Heart failure Hx Family Cardiac Disorders: Yes Hx Family Respiratory Disorders: Yes Hx Family Cancer: No Hx Family GI Disorders: No Hx Family Genitourinary Disorders: No Hx Family Endocrine Disorder: No Hx Family Musculoskeletal Disorders: No Hx Family Neuromuscular Disorders: No Hx Family Neurologic Disorders: No Hx Family HEENT Disorders: No Hx Family Autoimmune Disorders: No Hx Family Reproductive Disorders: No Hx Family Psychosocial Disorders: No Hx Family Medical Disorders: No Medications and Allergies Albuterol Sulfate [Albuterol Inhaler] 2 puff IH Q4H PRN 10/17/15 [History] Aspirin Enteric Coated [Aspirin EC] 81 mg PO DAILY 08/10/15 [History] Furosemide 40 mg PO BID 08/10/15 [History] Ipratropium/Albuterol Sulfate [Combivent Respimat Inhal [place]] 1 puff IH QID [History] Metoprolol Succinate 100 mg PO DAILY #0 08/10/15 [History] Warfarin [Coumadin] 3.5 mg PO SUTH 08/10/15 [History] Ipratropium/Albuterol Neb [Duoneb] 3 ml IH QID PRN 12/28/16 [History] Oxygen 2 l NS AD 12/28/16 [History] Warfarin [Coumadin] 3 mg PO [id number] 12/28/16 [History] Allergies Erythromycin Base Adverse Reaction (Verified 12/28/16 17:02) Unknown patient unsure nicotine [From Nicoderm CQ] Adverse Reaction (Verified 12/28/16 17:02) Rash All Systems Review: A 10-system review of systems was performed and is negative for pertinent findings except as documented above in the HPI. - Constitutional Constitutional: weight loss - Cardiovascular Cardiovascular: as per HPI, irregular heart rhythm, rapid heart rate - Respiratory Respiratory: cough, dyspnea Physical Examination Vital Signs, Last 4 Hours Temp Pulse Resp BP Pulse Ox 01/04/17 11:56 97.5 F L 136 17 108/98 94 L General: Conversant, Other (Conversational dyspnea noted. ) HEENT: Atraumatic, Normocephaly, Mucus Membranes Moist Neck: No JVD, Normal carotid pulses Cardiac: Other (Irregularly irregular. Tachycardic. ) Lungs: Other (Diminished breath sounds throughout. ) Neuro: Alert and responsive, No focal deficits noted Abdomen: Soft, Non-Tender Skin: No rashes noted on visualized skin, Other (Right lower extremity ulcer. ) Musculoskeletal: No Chest Wall Tenderness Extremities: No Clubbing, No Cyanosis, No Edema, Normal Pulses Results 01/04/17 05:15 01/04/17 05:15 Lab Results Active Medications Albuterol/Ipratropium (Duoneb) 3 ml IH QID PRN; Protocol PRN Reason: Shortness Of Breath/Wheezing Stop: 07/06/17 13:39 Albuterol/Ipratropium (Duoneb) 3 ml IH [id number] PRN; Protocol PRN Reason: Shortness Of Breath/Wheezing Stop: 07/06/17 13:41 Aspirin (Aspirin Ec) 81 mg PO DAILY RUTHY Stop: 06/30/17 09:01 Last Admin: 01/04/17 08:56 Dose: 81 mg Collagenase (Santyl) 1 appl TP DAILY RUTHY PRN Reason: Protocol Stop: 06/30/17 15:31 Last Admin: 01/04/17 08:58 Dose: 1 appl Furosemide (Lasix) 40 mg PO BIDDIURETIC RUTHY Stop: 06/29/17 21:01 Last Admin: 01/04/17 08:57 Dose: 40 mg Guaifenesin (Mucinex) 600 mg PO BID PRN PRN Reason: Cough Stop: 07/03/17 11:46 Ipratropium [place] (Atrovent Neb) 0.5 mg IH [id number] RUTHY Stop: 07/03/17 22:01 Last Admin: 01/04/17 10:28 Dose: 0.5 mg Levofloxacin (Levofloxacin) 750 mg PO DAILY RUTHY Stop: 07/03/17 09:01 Last Admin: 01/04/17 08:57 Dose: 750 mg Methylprednisolone (Solu-Medrol) 40 mg IVP Q12HR RUTHY Stop: 07/02/17 18:01 Last Admin: 01/04/17 04:53 Dose: 40 mg Metoprolol Succinate (Toprol Xl) 150 mg PO DAILY RUTHY Stop: 07/06/17 09:01 Naloxone HCl (Narcan) 0.4 mg IVP Q2MIN PRN PRN Reason: Opioid Reversal Stop: 06/29/17 19:35 Warfarin Sodium (Coumadin Perpt) 1 each PO DAILY@1800 PRN PRN Reason: SEE COMMENTS Stop: 06/30/17 18:01 Warfarin Sodium (Coumadin) 1.5 mg PO 1800 ONE Stop: 01/04/17 18:01 Laboratory Tests 12/28/16 01/03/17 01/04/17 16:02 05:54 05:15 INR 2.8 2.8 Potassium Magnesium 1.7 01/04/17 05:15 INR Potassium 3.2 L Magnesium - Imaging and Cardiology Chest Xray: report reviewed Echo: pending - EKG Interpretation EKG results cardiology: personally reviewed (Two ECG noted with atrial fibrillation with RVR one with HR 120, the other with HR 125.), other (24 hour telemetry reviewed with avergae HR 111, atria fibrillation. Longest pause 1.4 second. Occasional PVCS. Occasional couplets noted.) Consult Discharge Plan - Plan Referrals: Narcisa Ramos, KRISTA [Primary Care Provider] -
--- NOTE | 2017-01-04 15:50 | Internal Med Progress Note ---
Date of Encounter: 01/04/17 Time of Encounter: 11:00 - Assessment and plan (1) DVT prophylaxis Current Visit: Yes Status: Acute Assessment and plan: Patient is on Coumadin. Monitor INR (2) Acute exacerbation of chronic obstructive pulmonary disease (COPD) Current Visit: Yes Status: Acute Assessment and plan: Has improved after treatment. We will continue IV steroids, bronchodilator, and oxygen supportive therapy. On levaquin. Old chart has reviewed, patient has a chronic CO2 retention. (3) Atrial fibrillation with rapid ventricular response Current Visit: Yes Status: Acute Assessment and plan: Rate is still high. Continue by mouth metoprolol, increase dose as BP tolerate. Patient said the Cardizem makes her sick. We will also treat underlying COPD exacerbation. Closer follow-up vitals and heart rate. On Coumadin for anticoagulation, Monitor INR. Consult cardio for further management. (4) Diastolic CHF Current Visit: No Status: Chronic Assessment and plan: Continue home medications. Repeat echo. Qualifiers: Congestive heart failure chronicity: chronic Qualified Code(s): I50.32 - Chronic diastolic (congestive) heart failure - Time Spent With Patient 25 - 35 minutes - Subjective Interval history: Patient is a 76-year-old female admitted for shortness of breath. Patient was found A Fib with rapid ventricular response in emergency room. Past medical history is significant for A. fib, CHF, COPD, hyperlipidemia, hypertension. I saw and examined the patient. She still c/o SOB but looks in less respiratory distress, talk to me in full sentences, heart rate still high at 100 -130. BP is WNL. On abx, steroid and bronchodilator for COPD exacerbation. Lungs are clear although low breath sound b/L. Metoprolol dose has been increased but still tachycardia, cardio consult was called and saw pt. Will order echo. PT/OT evaluation. - Constitutional Vitals: Temp Pulse Resp BP Pulse Ox 97.5 F L 136 17 108/98 94 L 01/04/17 11:56 01/04/17 11:56 01/04/17 11:56 01/04/17 11:56 01/04/17 11:56 General appearance: Present: cooperative, A&O X 3, answers questions appropriately - Head Head exam: Present: atraumatic, normocephalic - Eye Eye exam: Present: PERRL, conjuntiva pink, sclera anicteric Pupils: Present: PERRL - Neck Neck exam general surgery: Present: supple, trachea midline. Absent: lymphadenopathy - Respiratory Respiratory exam: Present: decreased breath sounds, CTAB. Absent: accessory muscle use, rales, rhonchi, wheezes - Cardiovascular Cardiovascular exam: Present: RRR, +S1, +S2. Absent: diastolic murmur, gallop, rubs, systolic murmur - GI/Abdominal GI/Abdominal exam: Present: normal bowel sounds, soft, no peritoneal signs. Absent: distended, tenderness - Extremities Exam Extremities exam: Present: warm, radial pulses palpable and symetrical. Absent : calf tenderness, cyanotic, pedal edema - Neurological Exam Neurological exam: Present: CN II-XII intact, oriented X3, no focal deficits. Absent: pronater drift, facial droop, speech deficit - Skin Skin exam: Present: dry, intact Internal Medicine: Result - Labs CBC & Chem 7: 01/04/17 05:15 01/04/17 05:15 Labs: Short CBC 01/04/17 Range/Units 05:15 WBC 11.1 (4.3-11.1) K/mcL Hgb 13.9 (11.5-15.4) g/dL Hct 43.2 (35.3-44.9) % Plt Count 196 (140-400) K/mcL Neutrophils # 9.3 H (1.6-8.9) K/mcL BMP 01/04/17 05:15 Sodium 133 L Potassium 3.2 L Chloride 83 L Carbon Dioxide 45 H* BUN 22 H Creatinine 0.61 Glucose 96 Calcium 9.1 - ABG Interpretation ABG results: ABG ABG pH 7.44 pH Units (7.32-7.45) 12/31/16 08:14 ABG pCO2 70 mmHg (35-45) H* 12/31/16 08:14 ABG pO2 52 mmHg (85-104) L 12/31/16 08:14 ABG O2 Saturation 88 % (95-98) L 12/31/16 08:14 PT/INR, D-dimer PT 30.8 Seconds (9.4-12.1) H 01/04/17 05:15 Consult Discharge Plan - Plan Referrals: Narcisa Ramos, [employer]PER [Primary Care Provider] -
--- NOTE | 2017-01-04 16:27 | Pulmonology Consult Note ---
Date of Encounter: 01/04/17 Time of Encounter: 16:23 Assessment and Plan (1) COPD exacerbation Current Visit: Yes Status: Acute Difficult to tell if this is truly an acute exacerbation of her COPD versus natural progression of end-stage disease. I will transition her to by mouth prednisone and I recommend a two-week taper. I believe the benefit of scheduled albuterol outweighs the risk of tachycardia, and I have reinstituted scheduled DuoNeb's. Given the change in the character of her sputum, I agree with a 5 day course of levofloxacin. (2) Acute and chronic respiratory failure ([id number]) Current Visit: Yes Status: Acute Multifactorial in etiology and do a large part to advanced COPD. She reports a history of congestive heart failure, which may be diastolic in etiology. Continue supplemental oxygen for goal auctions saturations 88% or greater. I will defer to cardiology for management of her A. fib with RVR and diastolic heart failure. She states that she would never want to be on a ventilator or have CPR performed on her, so I have changed her CODE STATUS to DNR CCA DNI. Qualifiers: Respiratory failure complication: hypoxia Qualified Code(s): J96.21 - Acute and chronic respiratory failure with hypoxia (3) Failure to thrive in adult Current Visit: Yes Status: Acute As above, unclear if she truly has an exacerbation of COPD or if this is just the natural progression of end-stage COPD. She appears very cachectic, which is a poor prognostic sign and COPD. If she continues to decline from a respiratory standpoint, he will be reasonable to get palliative care involved. I will continue to follow. History of Present Illness Consult date: 01/04/17 Requesting physician: Kailash Leigh Reason for consult: COPD Chief complaint: dyspnea History of present illness: 76-year-old white female with medical history significant for advanced COPD who presented to the hospital with progressive dyspnea. Workup thus far has revealed acute heart failure and A. fib with RVR. Despite diuresis and improving rate control, the patient continues to have significant dyspnea at rest. Pulmonary was consult for further evaluation and management. Patient states that she developed progressive dyspnea on exertion 3-5 days prior to admission. The dyspnea was associated with mild cough productive of white sputum. Typically, she does not produce daily sputum. She can normally walk from room to room in her house without significant dyspnea on exertion. She can climb 7 steps very slowly with moderate dyspnea at baseline. Now, she can barely move around in bed without being significant short of breath. She denies any exertional chest discomfort, nausea/vomiting, or diaphoresis. No fevers/chills. No orthopnea. She states that they have taken her off DuoNeb's , and she typically receives significant improvement with DuoNeb's. Nothing seems to make her breathing better in terms of hospital interventions. Past Med Surg Social Fam HX - Past Medical History Medical history: atrial fibrillation, CHF, COPD, hyperlipidemia, hypertension Psychiatric history: no psych history - Past Surgical History Surgical History: cancer surgery, knee replacement, orthopedic, other - Social History Smoking Status: Former smoker Smokeless Tobacco Status: No Alcohol use: none Drug use: none - Family History Father History Unknown: Yes Living Status: Age at : 79 Cause of : CVA Hx Family Cardiac Disorders: Yes Hx Family Respiratory Disorders: No Hx Family Cancer: No Hx Family GI Disorders: No Hx Family Genitourinary Disorders: No Hx Family Endocrine Disorder: Yes (DM) Hx Family Musculoskeletal Disorders: No Hx Family Neuromuscular Disorders: No Hx Family Neurologic Disorders: No Hx Family HEENT Disorders: No Hx Family Autoimmune Disorders: No Hx Family Reproductive Disorders: No Hx Family Psychosocial Disorders: No Hx Family Medical Disorders: No Mother History Unknown: Yes Living Status: Age at : 78 Cause of : Heart failure Hx Family Cardiac Disorders: Yes Hx Family Respiratory Disorders: Yes Hx Family Cancer: No Hx Family GI Disorders: No Hx Family Genitourinary Disorders: No Hx Family Endocrine Disorder: No Hx Family Musculoskeletal Disorders: No Hx Family Neuromuscular Disorders: No Hx Family Neurologic Disorders: No Hx Family HEENT Disorders: No Hx Family Autoimmune Disorders: No Hx Family Reproductive Disorders: No Hx Family Psychosocial Disorders: No Hx Family Medical Disorders: No Medications and Allergies Albuterol Sulfate [Albuterol Inhaler] 2 puff IH Q4H PRN 08/10/15 [History] Aspirin Enteric Coated [Aspirin EC] 81 mg PO DAILY 08/10/15 [History] Furosemide 40 mg PO BID 08/10/15 [History] Ipratropium/Albuterol Sulfate [Combivent Respimat Inhal [place]] 1 puff IH QID [History] Metoprolol Succinate 100 mg PO DAILY #0 08/10/15 [History] Warfarin [Coumadin] 3.5 mg PO SUTH 08/10/15 [History] Ipratropium/Albuterol Neb [Duoneb] 3 ml IH QID PRN 12/28/16 [History] Oxygen 2 l NS AD 12/28/16 [History] Warfarin [Coumadin] 3 mg PO MOTUWEFRSA 12/28/16 [History] Allergies Erythromycin Base Adverse Reaction (Verified 12/28/16 17:02) Unknown patient unsure nicotine [From Nicoderm CQ] Adverse Reaction (Verified 12/28/16 17:02) Rash All Systems: A 10-system review of systems was performed and is negative for pertinent findings except as documented above in the HPI. Physical Examination Vital Signs: Vital Signs, Last 4 Hours Temp Pulse Resp BP Pulse Ox 01/04/17 15:43 97.8 F 112 16 101/79 90 L General: Cachectic, increased work of breathing at rest Eyes: nonicteric ENT: oropharynx moist Neck: supple, no lymphadenopathy Lungs: Poor air movement bilaterally Cardiovascular: Irregularly irregular, tachycardic, no rubs murmurs or gallops Gastrointestinal: normoactive bowel sounds, soft, non-tender, non-distended Integumentary: normal Extremities: no cyanosis, no edema Musculoskeletal: no deformities Neuro: normal mental status, non-focal exam Psych: mood appropriate, affect normal Results - Laboratory Findings CBC and BMP: 01/04/17 05:15 01/04/17 05:15 ABG ABG pH 7.44 pH Units (7.32-7.45) 12/31/16 08:14 ABG pCO2 70 mmHg (35-45) H* 12/31/16 08:14 ABG pO2 52 mmHg (85-104) L 12/31/16 08:14 ABG O2 Saturation 88 % (95-98) L 12/31/16 08:14 PT/INR, D-dimer PT 30.8 Seconds (9.4-12.1) H 01/04/17 05:15 Abnormal lab findings: Abnormal lab results Neutrophils # 9.3 K/mcL (1.6-8.9) H 01/04/17 05:15 PT 30.8 Seconds (9.4-12.1) H 01/04/17 05:15 ABG pCO2 70 mmHg (35-45) H* 12/31/16 08:14 ABG pO2 52 mmHg (85-104) L 12/31/16 08:14 ABG HCO3 47.5 mEQ/L (21-27) H 12/31/16 08:14 ABG Total CO2 49.6 mEq/L (20-26) H 12/31/16 08:14 ABG O2 Saturation 88 % (95-98) L 12/31/16 08:14 ABG Base Excess 19.6 mEq/L (-2.0 to 3.0) H 12/31/16 08:14 Sodium 133 mEq/L (136-145) L 01/04/17 05:15 Potassium 3.2 mEq/L (3.5-4.5) L 01/04/17 05:15 Chloride 83 mEq/L (98-109) L 01/04/17 05:15 Carbon Dioxide 45 mEq/L (19-29) H* 01/04/17 05:15 BUN 22 mg/dL (7-20) H 01/04/17 05:15 BUN/Creatinine Ratio 36 (6-26) H 01/04/17 05:15 Calculated Osmolality 279 (280-300) L 01/04/17 05:15 B-Natriuretic Peptide 733 pg/mL (0-100) H 12/28/16 16:02 - Clinical Findings Intake & Output: Intake & Output 01/04/17 01/04/17 01/04/17 07:59 15:59 23:59 Intake Total 250 / 250 200 / 200 Output Total 0 / 0 350 / 350 Balance 250 / 250 -150 / -150 Weight 58.4 kg Consult Discharge Plan - Plan Referrals: Narcisa Ramos, MANAGER MARKET DEVELOPMENT [Primary Care Provider] -
[2017-01-04] MEDS: Ipratropium/Albuterol Neb 3 ML IH SCH ×3 (16:44→20:00)
[2017-01-04] MEDS: *HR* Metoprolol 5 MG/5 ML VIAL IVP SCH (17:31)
[2017-01-04] MEDS ORDERED: *HR* Warfarin 3 MG TABLET PO ONE (18:00)
[2017-01-05] MEDS: *HR* Metoprolol 5 MG/5 ML VIAL IVP SCH ×2 (00:01→05:55)
[2017-01-05] MEDS ORDERED: *HR* Metoprolol 5 MG/5 ML VIAL IVP ONE ×2 (00:45→02:42)
[2017-01-05] MEDS: Ipratropium/Albuterol Neb 3 ML IH PRN ×3 (01:27→23:03)
[2017-01-05] MEDS: Ipratropium/Albuterol Neb 3 ML IH SCH ×4 (05:11→20:27)
[2017-01-05 06:44] LABS: Basophils % 0.2 %; Hematocrit 44.5 % (35.3-44.9); Hemoglobin 14.4 g/dL (11.5-15.4); Immature Granulocytes % 0.6 % (0-4); Lymphocytes # 0.7 K/mcL (0.6-4.6); Lymphocytes % 5.3 %; Mean Corpuscular HGB Conc 32.4 g/dL (31.6-35.5); Mean Corpuscular Hemoglobin 30.5 pg (28.0-33.3); Mean Corpuscular Volume 94.3 fL (83.0-100.0); Mean Platelet Volume 10.2 fL (9.4-12.4); Monocytes # 1.3 K/mcL (0.0-1.3); Neutrophils # 10.8 K/mcL (1.6-8.9); Platelet Count 210 K/mcL (140-400); Red Blood Count 4.72 M/mcL (3.82-4.97); Red Cell Distribution Width 12.6 % (11.5-14.5); Segmented Neutrophils % 83.9 %
[2017-01-05 06:50] LABS: INR 3.1; Prothrombin Time 34.8 Seconds (9.4-12.1)
[2017-01-05 07:14] LABS: BUN/Creatinine Ratio 41 (6-26); Blood Urea Nitrogen 29 mg/dL (7-20); Calcium 8.9 mg/dL (8.6-10.8); Chloride 85 mEq/L (98-109); Glucose 97 mg/dL (70-99); Osmolality,Calculated 288 (280-300); Sodium 136 mEq/L (136-145); eGFR For African Americans > 60 (> 60); eGFR For Non-African Americans > 60 (> 60)
[2017-01-05 07:20] LABS: Thyroid Stimulating Hormone 1.132 mcIU/mL (0.350-4.840)
[2017-01-05 07:26] LABS: Potassium 4.5 mEq/L (3.5-4.5)
[2017-01-05 07:30] LABS: Carbon Dioxide 43 mEq/L (19-29)
--- NOTE | 2017-01-05 08:48 | ECHO - Doppler Report ---
Echocardiogram Name: Germaine Loomis Date of Study: 01/04/2017 Date: 1940 Ht: 67.0 in Medical Record#: [id number] Age: 76 Wt: 128.0 lb Gender: Female BSA: 1.67 Order #: [id number] Location: [facility] Room #: [id number] Reading Physician: Gonzalo Wesley MD, [facility] Facilities Engineer: Ana Rosa Overton Ordering Physician: Bibiana Duncan MD Primary Physician: Narcisa Ramos CNP Indications: Shortness of breath, Afib Impressions: Patient was in atrial fibrillation with RVR throughout the study. Normal LV systolic function, LVEF 55%. Indeterminate diastolic function due to atrial fibrillation. Normal right ventricular size and function. Severely dilated left atrium. Severely dilated right atrium. Mild aortic regurgitation. Mild mitral regurgitation. Mild tricuspid regurgitation. Mild pulmonary hypertension. Estimated RVSP = 44 mmHg. Left Ventricular Wall Motion: Rest Echo Findings All wall segments showed normal motion. Findings: Study Quality * Technically sub-optimal due to clinical status. ECG Findings * Patient was in atrial fibrillation with RVR throughout the study. Left Ventricle * Normal LV systolic function, LVEF 55%. * Normal LV chamber size and wall thickness. * Indeterminate diastolic function due to atrial fibrillation. Right Ventricle * Normal right ventricular size and function. Left Atrium * Severely dilated left atrium. Right Atrium * Severely dilated right atrium. Aorta * Normally sized aortic root. Pericardium * There is no pericardial effusion present. IVC * The IVC is not dilated. Aortic Valve * Trileaflet aortic valve. * No aortic stenosis. * Mild aortic regurgitation. Mitral Valve * Normal mitral valve structure. * No mitral stenosis. * Mild mitral regurgitation. Tricuspid Valve * Normal tricuspid valve structure. * No tricuspid stenosis. * Mild tricuspid regurgitation. * Mild pulmonary hypertension. Estimated RVSP = 44 mmHg. Pulmonic Valve * Pulmonic valve not well visualized. * No pulmonic stenosis. * Trace pulmonic regurgitation. History Hypertension Hypercholesteremia Years 35 Packs 1 Congestive Heart Failure 01/10/2015 a Previous Echo was performed. Measurements: BP: 101/ 79 2D Normal Values RVIDd: 3.40 cm IVSd: .90 cm 0.6 - 1.0 cm LVIDd: 3.90 cm 3.7 - 5.6 cm LVPWd: .80 cm 0.6 - 1.1 cm LVIDs: 2.80 cm 1.5 - 3.6 cm AO: 3.20 cm < 4.0 cm LA: 4.40 cm 2.0 - 4.0cm LA volume: 98 Tricuspid Valve TV Regurg Peak Grad: 39.00mmHg TV Regurg Peak Curtis: 3.12m/sec Updated by Gonzalo Wesley MD, [facility] on 01/05/2017 8:43:22 AM electronically signed on 01/05/2017 8:43:58 AM with status of Final Wall Motion Guidry: 1=Normal, 2=Hypokinesis, 3=Akinesis, 4=Dyskinesis, 5=Aneurysmal, 6=Hyperkinetic, X=Not Visualized (Blank)=Missing
--- NOTE | 2017-01-05 09:05 | Pulmonology Progress Note ---
Date of Encounter: 01/05/17 Time of Encounter: 09:01 Assessment and Plan (1) COPD exacerbation Current Visit: Yes Status: Acute Difficult to tell if this is truly an acute exacerbation of her COPD versus natural progression of end-stage disease. I have transitioned her to by mouth prednisone and I recommend a two-week taper. I believe the benefit of scheduled albuterol outweighs the risk of tachycardia, and I have reinstituted scheduled DuoNeb's. Given the recent change in the character of her sputum, I agree with a 5 day course of levofloxacin. Overall improved in the past 24 hours. (2) Acute and chronic respiratory failure ([id number]) Current Visit: Yes Status: Acute Multifactorial in etiology and do a large part to advanced COPD. She reports a history of congestive heart failure, which may be diastolic in etiology. Continue supplemental oxygen for goal oxygen saturations 88% or greater. I will defer to cardiology for management of her A. fib with RVR and diastolic heart failure. She states that she would never want to be on a ventilator or have CPR performed on her, so I have changed her CODE STATUS to DNR CCA DNI. Qualifiers: Respiratory failure complication: hypoxia Qualified Code(s): J96.21 - Acute and chronic respiratory failure with hypoxia (3) Failure to thrive in adult Current Visit: Yes Status: Acute As above, unclear if she truly has an exacerbation of COPD or if this is just the natural progression of end-stage COPD. She appears very cachectic, which is a poor prognostic sign and COPD. If she continues to decline from a respiratory standpoint, he will be reasonable to get palliative care involved. (4) Oral thrush Current Visit: Yes Status: Acute Likely due to high-dose intravenous steroids. I have initiated nystatin swish and swallow. Will follow while the patient is hospitalized. Subjective Principal diagnosis: COPD Interval history: No acute overnight events. Patient reports improvement of her dyspnea in the past 24 hours with the addition of albuterol to her nebulized treatments. The increased frequency of her treatments as helped as well. No cough or sputum production. No fever/chills. She complains of white plaques noted on her oral mucosa. All other systems reviewed and otherwise negative. Objective PUL Vital signs: Last Vital Signs Temp 97.7 F 01/05/17 07:30 Pulse 126 01/05/17 07:30 Resp 18 01/05/17 07:30 BP 114/83 01/05/17 07:30 Pulse Ox 95 01/05/17 07:30 General: Cachectic, no acute distress Eyes: nonicteric ENT: oropharynx dry with diffuse white plaques noted Neck: supple, no lymphadenopathy Lungs: Poor air movement bilaterally Cardiovascular: Irregularly irregular, tachycardic, no rubs murmurs or gallops Gastrointestinal: normoactive bowel sounds, soft, non-tender, non-distended Integumentary: normal Extremities: no cyanosis, no edema Musculoskeletal: no deformities Neuro: normal mental status, non-focal exam Psych: mood appropriate, affect normal Results - Laboratory Findings CBC and BMP: 01/05/17 05:25 01/05/17 05:25 ABG ABG pH 7.44 pH Units (7.32-7.45) 12/31/16 08:14 ABG pCO2 70 mmHg (35-45) H* 12/31/16 08:14 ABG pO2 52 mmHg (85-104) L 12/31/16 08:14 ABG O2 Saturation 88 % (95-98) L 12/31/16 08:14 PT/INR, D-dimer PT 34.8 Seconds (9.4-12.1) H 01/05/17 05:25 Abnormal lab findings: Abnormal lab results WBC 12.9 K/mcL (4.3-11.1) H 01/05/17 05:25 Neutrophils # 10.8 K/mcL (1.6-8.9) H 01/05/17 05:25 PT 34.8 Seconds (9.4-12.1) H 01/05/17 05:25 ABG pCO2 70 mmHg (35-45) H* 12/31/16 08:14 ABG pO2 52 mmHg (85-104) L 12/31/16 08:14 ABG HCO3 47.5 mEQ/L (21-27) H 12/31/16 08:14 ABG Total CO2 49.6 mEq/L (20-26) H 12/31/16 08:14 ABG O2 Saturation 88 % (95-98) L 12/31/16 08:14 ABG Base Excess 19.6 mEq/L (-2.0 to 3.0) H 12/31/16 08:14 Chloride 85 mEq/L (98-109) L 01/05/17 05:25 Carbon Dioxide 43 mEq/L (19-29) H* 01/05/17 05:25 BUN 29 mg/dL (7-20) H 01/05/17 05:25 BUN/Creatinine Ratio 41 (6-26) H 01/05/17 05:25 B-Natriuretic Peptide 733 pg/mL (0-100) H 12/28/16 16:02 - Clinical Findings Intake & Output: Intake & Output 01/04/17 01/05/17 01/05/17 23:59 07:59 15:59 Intake Total 240 / 240 Balance 240 / 240 Weight 58.4 kg Consult Discharge Plan - Plan Referrals: Narcisa Ramos, IRON WORKER FOREMAN [Primary Care Provider] -
[2017-01-05] MEDS: predniSONE 20 MG TABLET PO SCH (09:37)
[2017-01-05] MEDS: Nystatin SUSP 5 ML UD.LIQ PO SCH ×3 (09:37→17:06)
[2017-01-05] MEDS: Aspirin Enteric Coated 81 MG Tablet PO SCH (09:37)
[2017-01-05] MEDS: Metoprolol XL (24 HR) Succ 50 MG TAB.ER.24H PO SCH (09:38)
[2017-01-05] MEDS: Furosemide 40 MG TABLET PO SCH ×2 (09:39→17:07)
[2017-01-05] MEDS: levoFLOXacin 750 MG TABLET PO SCH (09:39)
--- NOTE | 2017-01-05 10:47 | Cardiology Progress Note ---
Date of Encounter: 01/05/17 Time of Encounter: 09:30 Assessment and Plan (1) COPD exacerbation Current Visit: Yes Status: Acute Per cardiology: -KNown history of COPD. -FOllows with pulmonary as outpatient. Pulmonary now following as inpatient. -On nebs, steroids, and ATB. -States breathing better today. -Discussed with patient palliative care consult. Pateint states she does not wish to speak to them right now. -Management per primary and pulmonary service. -May be contributing to a.fib RVR. (EJ) (2) Atrial fibrillation with rapid ventricular response Current Visit: Yes Status: Chronic Per cardiology: -Known history of atrial fibrillation follows with . -On coumadin and toprol 100mg po daily as outpatient. -INR therapeutic on admission. -On toprol 150mg po daily. (ordered per primary service). Started on lopressor 2.5mg IV Q6 hours yesterday. -Average heart rate 119 for past 12 hours. -Echocardiogram pending LVEF 55%, indeterminate diastolic function due to a.fib , normal right ventricular size and function, severly dilated left atrium, severly dilated rigth atrium, mild aortic regurgitation, mild tricuspid regurgitation, mild pulmonary hypertension, all wall segments with normal motion. -K 4.5 today. -Discussed and reviewed with Dr. Butch Desai will start cardizem 30mg po Q6 hours. Patient agreeable to try cardizem. Patient states that she does not remember any adverse reactions or allergies to cardizem. She states that she doesn't remember why she was taken off of cardizem. -Continue toprol and coumadin. -IV lopressor discontinued. -Will continue to monitor. (EJ) Discussion w patient/family: The assessment and plan as outlined above was discussed with the patient and/or family members who expressed understanding and agreement. All questions were answered. Thank you for involving us in the care of your patient. Please call with any questions. Patient seen and examined with KRISTA Ochoa DIscussed and reviewed with Dr.John Desai. Subjective Principal diagnosis: COPD Interval history: is a 76 year old female with a relevant past medical history of severe COPD, a.fib, diastolic heart failure, hyperlipidemia, and HTN. SHe was admitted to the hospital over a week ago for increased shrotness of breath. Patient wears home O2 at 2lpm per nasal cannula. She has been in atrial fibrillation with RVR since her admission. Cardiology was consulted yesterday due to RVR. Patient denies dizziness or lightheadedness. Pateint states breathing is much better today. Of note, patient changed her code status yesterday to DNR-CCA/ DNI. (EJ) Objective Vital Signs, Last 4 Hours Temp Pulse Resp BP Pulse Ox 01/05/17 07:30 97.7 F 126 18 114/83 95 General: Conversant, No Apparent Distress HEENT: Atraumatic, Normocephaly, Mucus Membranes Moist, Other (Thrush noted to tongue) Neck: No JVD, Normal carotid pulses Cardiac: Other (Irregularly, irregular) Lungs: Other (Diminiished breath sounds throughout) Neuro: Alert and responsive, No focal deficits noted Abdomen: Soft Skin: No rashes noted on visualized skin Musculoskeletal: No Chest Wall Tenderness Extremities: No Clubbing, No Cyanosis, No Edema, Normal Pulses Results 01/05/17 05:25 01/05/17 05:25 Lab Results Impressions Chest X-Ray 01/04/17 16:20 IMPRESSION: Advanced COPD with no acute finding in the chest. Kyphosis and a probable remote compression fractures in the thoracic spine. D/ / Mayank Blake MD / Mayank Blake MD Interpreting Provider: Mayank Blake MD Active Medications Albuterol/Ipratropium (Duoneb) 3 ml IH QID RUTHY PRN Reason: Protocol Stop: 07/06/17 17:01 Last Admin: 01/05/17 05:11 Dose: 3 ml Albuterol/Ipratropium (Duoneb) 3 ml IH [id number] PRN; Protocol PRN Reason: Shortness Of Breath/Wheezing Stop: 07/06/17 20:01 Last Admin: 01/05/17 01:27 Dose: 3 ml Aspirin (Aspirin Ec) 81 mg PO DAILY [facility] Stop: 06/30/17 09:01 Last Admin: 01/05/17 09:37 Dose: 81 mg Collagenase (Santyl) 1 appl TP DAILY [facility] PRN Reason: Protocol Stop: 06/30/17 15:31 Last Admin: 01/05/17 09:39 Dose: Not Given Diltiazem HCl (Cardizem) 30 mg PO Q6HR RUTHY Stop: 07/07/17 10:52 Furosemide (Lasix) 40 mg PO BIDDIURETIC RUTHY Stop: 06/29/17 21:01 Last Admin: 01/05/17 09:39 Dose: 40 mg Guaifenesin (Mucinex) 600 mg PO BID PRN PRN Reason: Cough Stop: 07/03/17 11:46 Levofloxacin (Levofloxacin) 750 mg PO DAILY RUTHY Stop: 07/03/17 09:01 Last Admin: 01/05/17 09:39 Dose: 750 mg Metoprolol Succinate (Toprol Xl) 150 mg PO DAILY RUTHY Stop: 07/06/17 09:01 Last Admin: 01/05/17 09:38 Dose: 150 mg Naloxone HCl (Narcan) 0.4 mg IVP Q2MIN PRN PRN Reason: Opioid Reversal Stop: 06/29/17 19:35 Nystatin (Mycostatin Suspension) 5 ml PO QID RUTHY Stop: 07/07/17 09:01 Last Admin: 01/05/17 09:37 Dose: 5 ml Prednisone (Prednisone) 40 mg PO DAILY R[facility]Y Stop: 07/07/17 09:01 Last Admin: 01/05/17 09:37 Dose: 40 mg Warfarin Sodium (Coumadin Perpt) 1 each PO DAILY@1800 PRN PRN Reason: SEE COMMENTS Stop: 06/30/17 18:01 Warfarin Sodium (Coumadin) 1 mg PO 1800 ONE Stop: 01/05/17 18:01 Laboratory Tests 01/04/17 01/05/17 01/05/17 05:15 05:25 05:25 WBC 12.9 H Potassium 3.2 L 4.5 D TSH 1.132 - Imaging and Cardiology Chest Xray: report reviewed Echo: report reviewed - EKG Interpretation EKG results cardiology: other (Telemetry reviewed with average heart rate 119, atrial fibrillation. Occasional PVCs noted.) Consult Discharge Plan - Plan Referrals: Narcisa Ramos, FITNESS DIRECTOR [Primary Care Provider] -
--- NOTE | 2017-01-05 14:08 | Internal Med Progress Note ---
Date of Encounter: 01/05/17 Time of Encounter: 14:05 - Assessment and plan (1) Acute exacerbation of chronic obstructive pulmonary disease (COPD) Current Visit: Yes Status: Acute Assessment and plan: acute copd exacerbation likely secondary to viral bronchitis/ chronic respiratory failure taper prednisone oxygen supportive therapy ( 2 Lt at home) . Completed 8 days of levaquin. Old chart has reviewed, patient has a chronic CO2 retention. (2) Oral thrush Current Visit: Yes Status: Acute Assessment and plan: continue nystatin day 1 (3) Atrial fibrillation with rapid ventricular response Current Visit: Yes Status: Chronic Assessment and plan: Rate is still high in the 120s. Continue by mouth metoprolol ( home dose 100 mg daily ) increased to 150 mg by cardiology added cardizem 30 mg q6h, said the Cardizem makes her sick. On Coumadin for anticoagulation, Monitor INR (3.1) . Consulted cardio for further management. (4) Diastolic CHF Current Visit: No Status: Chronic Assessment and plan: Continue home medications. continue lasix Qualifiers: Congestive heart failure chronicity: chronic Qualified Code(s): I50.32 - Chronic diastolic (congestive) heart failure (5) DVT prophylaxis Current Visit: Yes Status: Acute Assessment and plan: Patient is on Coumadin. Monitor INR - Subjective Interval history: feels very short of breath, tachycardic , denies CP , no abdominal pain , no dysuria, no diarrhea - Constitutional Vitals: Temp Pulse Resp BP Pulse Ox 97.9 F 125 18 113/80 98 01/05/17 11:20 01/05/17 11:20 01/05/17 11:20 01/05/17 11:20 01/05/17 11:20 General appearance: Present: cooperative, A&O X 3, answers questions appropriately - Head Head exam: Present: atraumatic, normocephalic - Eye Eye exam: Present: PERRL, conjuntiva pink, sclera anicteric Pupils: Present: PERRL - Neck Neck exam general surgery: Present: supple, trachea midline. Absent: lymphadenopathy - Respiratory Respiratory exam: Present: decreased breath sounds (very diminished breath sounds, severe kyphosis), CTAB. Absent: accessory muscle use, rales, rhonchi, wheezes - Cardiovascular Cardiovascular exam: Present: RRR, +S1, +S2. Absent: diastolic murmur, gallop, rubs, systolic murmur - GI/Abdominal GI/Abdominal exam: Present: normal bowel sounds, soft, no peritoneal signs. Absent: distended, tenderness - Extremities Exam Extremities exam: Present: warm, radial pulses palpable and symetrical. Absent : calf tenderness, cyanotic, pedal edema - Neurological Exam Neurological exam: Present: CN II-XII intact, oriented X3, no focal deficits. Absent: pronater drift, facial droop, speech deficit Additional comments: tongue thrush - Skin Skin exam: Present: dry. Absent: intact (b/l leg erythema, small escoriation right watt, covered by dressing , crhonic erythema) Internal Medicine: Result - Labs CBC & Chem 7: 01/05/17 05:25 01/05/17 05:25 Labs: Short CBC 01/05/17 Range/Units 05:25 WBC 12.9 H (4.3-11.1) K/mcL Hgb 14.4 (11.5-15.4) g/dL Hct 44.5 (35.3-44.9) % Plt Count 210 (140-400) K/mcL Neutrophils # 10.8 H (1.6-8.9) K/mcL BMP 01/05/17 05:25 Sodium 136 Potassium 4.5 D Chloride 85 L Carbon Dioxide 43 H* BUN 29 H Creatinine 0.70 Glucose 97 Calcium 8.9 - ABG Interpretation ABG results: ABG ABG pH 7.44 pH Units (7.32-7.45) 12/31/16 08:14 ABG pCO2 70 mmHg (35-45) H* 12/31/16 08:14 ABG pO2 52 mmHg (85-104) L 12/31/16 08:14 ABG O2 Saturation 88 % (95-98) L 12/31/16 08:14 PT/INR, D-dimer PT 34.8 Seconds (9.4-12.1) H 01/05/17 05:25 - Impressions Impressions Chest X-Ray 01/04/17 16:20 IMPRESSION: Advanced COPD with no acute finding in the chest. Kyphosis and a probable remote compression fractures in the thoracic spine. D/ / Mayank Blake MD / Mayank Blake MD Interpreting Provider: Mayank Blake MD Consult Discharge Plan - Plan Referrals: Narcisa Ramos CNP [Primary Care Provider] -
[2017-01-05] MEDS ORDERED: *HR* Warfarin 1 MG TABLET PO ONE (18:00)
[2017-01-06] MEDS: Ipratropium/Albuterol Neb 3 ML IH PRN (03:57)
[2017-01-06 06:02] LABS: INR 2.6; Prothrombin Time 28.3 Seconds (9.4-12.1)
--- NOTE | 2017-01-06 08:26 | Pulmonology Progress Note ---
Date of Encounter: 01/06/17 Time of Encounter: 08:24 Assessment and Plan (1) COPD exacerbation Current Visit: Yes Status: Acute Difficult to tell if this is truly an acute exacerbation of her COPD versus natural progression of end-stage disease. I have transitioned her to by mouth prednisone and I recommend a two-week taper. I believe the benefit of scheduled albuterol outweighs the risk of tachycardia, and I have reinstituted scheduled DuoNeb's. Given the recent change in the character of her sputum, I agree with a 5 day course of levofloxacin (which has been finished) Overall improved in the past 48 hours. Stable for discharge from a pulmonary standpoint. She will need to follow-up with Dr. Aguilar in the pulmonary clinic. (2) Acute and chronic respiratory failure ([id number]) Current Visit: Yes Status: Acute Multifactorial in etiology and do a large part to advanced COPD. She reports a history of congestive heart failure, which may be diastolic in etiology. Continue supplemental oxygen for goal oxygen saturations 88% or greater. I will defer to cardiology for management of her A. fib with RVR and diastolic heart failure. She states that she would never want to be on a ventilator or have CPR performed on her, so I have changed her CODE STATUS to DNR CCA DNI. Qualifiers: Respiratory failure complication: hypoxia Qualified Code(s): J96.21 - Acute and chronic respiratory failure with hypoxia (3) Failure to thrive in adult Current Visit: Yes Status: Acute As above, unclear if she truly has an exacerbation of COPD or if this is just the natural progression of end-stage COPD. She appears very cachectic, which is a poor prognostic sign and COPD. If she continues to decline from a respiratory standpoint, it would be reasonable to get palliative care involved. (4) Oral thrush Current Visit: Yes Status: Acute Likely due to high-dose intravenous steroids. I have initiated nystatin swish and swallow. No further recommendations from a pulmonary standpoint. Will sign off. Please call with questions. Subjective Principal diagnosis: COPD Interval history: No acute overnight events. Patient reports improvement of her dyspnea in the past 48 hours, although she still has dyspnea with minimal exertion. No cough or sputum production. No fever/chills. She reports the white plaques noted on her oral mucosa have improved with the nystatin. All other systems reviewed and otherwise negative. Objective PUL Vital signs: Last Vital Signs Temp 98.9 F 01/06/17 07:12 Pulse 108 01/06/17 07:12 Resp 16 01/06/17 07:12 BP 94/63 01/06/17 07:12 Pulse Ox 98 01/06/17 07:12 General: Cachectic, no acute distress Eyes: nonicteric ENT: oropharynx dry with diffuse white plaques noted Neck: supple, no lymphadenopathy Lungs: Poor air movement bilaterally Cardiovascular: Irregularly irregular, tachycardic, no rubs murmurs or gallops Gastrointestinal: normoactive bowel sounds, soft, non-tender, non-distended Integumentary: normal Extremities: no cyanosis, no edema Musculoskeletal: no deformities Neuro: normal mental status, non-focal exam Psych: mood appropriate, affect normal Results - Laboratory Findings CBC and BMP: 01/05/17 05:25 01/05/17 05:25 ABG ABG pH 7.44 pH Units (7.32-7.45) 12/31/16 08:14 ABG pCO2 70 mmHg (35-45) H* 12/31/16 08:14 ABG pO2 52 mmHg (85-104) L 12/31/16 08:14 ABG O2 Saturation 88 % (95-98) L 12/31/16 08:14 PT/INR, D-dimer PT 28.3 Seconds (9.4-12.1) H 01/06/17 05:24 Abnormal lab findings: Abnormal lab results WBC 12.9 K/mcL (4.3-11.1) H 01/05/17 05:25 Neutrophils # 10.8 K/mcL (1.6-8.9) H 01/05/17 05:25 PT 28.3 Seconds (9.4-12.1) H 01/06/17 05:24 ABG pCO2 70 mmHg (35-45) H* 12/31/16 08:14 ABG pO2 52 mmHg (85-104) L 12/31/16 08:14 ABG HCO3 47.5 mEQ/L (21-27) H 12/31/16 08:14 ABG Total CO2 49.6 mEq/L (20-26) H 12/31/16 08:14 ABG O2 Saturation 88 % (95-98) L 12/31/16 08:14 ABG Base Excess 19.6 mEq/L (-2.0 to 3.0) H 12/31/16 08:14 Chloride 85 mEq/L (98-109) L 01/05/17 05:25 Carbon Dioxide 43 mEq/L (19-29) H* 01/05/17 05:25 BUN 29 mg/dL (7-20) H 01/05/17 05:25 BUN/Creatinine Ratio 41 (6-26) H 01/05/17 05:25 B-Natriuretic Peptide 733 pg/mL (0-100) H 12/28/16 16:02 - Clinical Findings Intake & Output: Intake & Output 01/05/17 01/06/17 01/06/17 23:59 07:59 15:59 Intake Total 0 / 0 Output Total 700 / 700 0 / 0 Balance -700 / -700 0 / 0 Weight 57.8 kg Consult Discharge Plan - Plan Referrals: Narcisa Ramos, SALES SERVICE REP [Primary Care Provider] -
[2017-01-06] MEDS: predniSONE 20 MG TABLET PO SCH (08:58)
[2017-01-06] MEDS: Furosemide 40 MG TABLET PO SCH ×2 (08:58→17:12)
[2017-01-06] MEDS: Aspirin Enteric Coated 81 MG Tablet PO SCH (08:58)
[2017-01-06] MEDS: Metoprolol XL (24 HR) Succ 50 MG TAB.ER.24H PO SCH ×2 (08:58→19:35)
[2017-01-06] MEDS: Nystatin SUSP 5 ML UD.LIQ PO SCH ×4 (08:58→19:35)
--- NOTE | 2017-01-06 10:06 | Cardiology Progress Note ---
Date of Encounter: 01/06/17 Time of Encounter: 09:30 Assessment and Plan (1) COPD exacerbation Current Visit: Yes Status: Acute Per cardiology: -Known history of COPD. -On home O2 -On O2, nebs, steroids, and ATB as inpatient. -States breathing is much better today. -Follows with pulmonary as oupatient. Pulmonary following as inpatient also. -Code status DNR-CCA/DNI. Refused paliative care consult. -Management per pulmonary and primary service. -May be contributing to a.fib RVR. (EJ) (2) Atrial fibrillation with rapid ventricular response Current Visit: Yes Status: Chronic Per cardiology: -Known history of atrial fibrillation follows with . -On coumadin and toprol 100mg po daily as outpatient. -INR therapeutic on admission. -On toprol 150mg po daily. (ordered per primary service). Started cardizem 30mg po q6 hours. Patient took one dose and said she couldn't tolerate due to nause, dizziness, and sweating. Patient has been refusing subsequent doses. Will DC. -Average heart rate 110 for past 12 hours, improved from yesterday. -Echocardiogram 01/04/17 LVEF 55%, indeterminate diastolic function due to a.fib , normal right ventricular size and function, severly dilated left atrium, severly dilated rigth atrium, mild aortic regurgitation, mild tricuspid regurgitation, mild pulmonary hypertension, all wall segments with normal motion. -Due to patient's advanced COPD, obtaining normal HR may be unobtainable for her. -Will discontinue cardizem-- patient refusing and SBP 90's to 100's. -Current HR 80's - 90's. -Continue toprol and coumadin. -Discussed and reviewed with Dr. Butch Desai, katrina s/o, re-consult PRN, f/u as outpatient scheduled. (EJ) Discussion w patient/family: The assessment and plan as outlined above was discussed with the patient who expressed understanding and agreement. All questions were answered. Thank you for involving us in the care of your patient. Please call with any questions. Patient seen and examined with KRISTA Ochoa DIscussed and reviewed with Dr.John Desai. Subjective Principal diagnosis: COPD Interval history: is a 76 year old female with a relevant past medical history of severe COPD, a.fib, diastolic heart failure, hyperlipidemia, and HTN. SHe was admitted to the hospital over a week ago for increased shortness of breath. Patient wears home O2 at 2lpm per nasal cannula. She has been in atrial fibrillation with RVR since her admission. Cardiology was consulted due to RVR. Patient denies dizziness or lightheadedness at this time. Pateint states breathing is much better today. Of note, patient changed her code status to DNR-CCA/DNI, however refused palliative care consult. Patient states she feels like she is ready to go home today. Patient was started on cardizem yesterday. Patient states she took one dose and became nauseated, sweaty, and somewhat dizzy. Patient has been refusing further doses of cardizem. (EJ) Objective Vital Signs, Last 4 Hours Temp Pulse Resp BP Pulse Ox 01/06/17 07:12 98.9 F 108 16 94/63 98 General: Conversant, No Apparent Distress HEENT: Atraumatic, Normocephaly, Mucus Membranes Moist Neck: No JVD, Normal carotid pulses Cardiac: Other (Irregularly, irregular) Lungs: Other (Diminished breath sounds throughout. ) Neuro: Alert and responsive, No focal deficits noted Abdomen: Soft, Non-Tender Skin: No rashes noted on visualized skin Musculoskeletal: No Chest Wall Tenderness Extremities: No Clubbing, No Cyanosis, No Edema, Normal Pulses Results 01/05/17 05:25 01/05/17 05:25 Lab Results 01/06/17 05:24 INR 2.6 Active Medications Albuterol/Ipratropium (Duoneb) 3 ml IH QID RUTHY PRN Reason: Protocol Stop: 07/06/17 17:01 Last Admin: 01/05/17 20:27 Dose: 3 ml Albuterol/Ipratropium (Duoneb) 3 ml IH [id number] PRN; Protocol PRN Reason: Shortness Of Breath/Wheezing Stop: 07/06/17 20:01 Last Admin: 01/05/17 23:03 Dose: 3 ml Aspirin (Aspirin Ec) 81 mg PO DAILY [facility] Stop: 06/30/17 09:01 Last Admin: 01/06/17 08:58 Dose: 81 mg Collagenase (Santyl) 1 appl TP DAILY RUTHY PRN Reason: Protocol Stop: 06/30/17 15:31 Last Admin: 01/06/17 08:59 Dose: 1 appl Diltiazem HCl (Cardizem) 30 mg PO Q6HR RUTHY Stop: 07/07/17 10:52 Last Admin: 01/06/17 05:15 Dose: Not Given Furosemide (Lasix) 40 mg PO BIDDIURETIC RUTHY Stop: 06/29/17 21:01 Last Admin: 01/06/17 08:58 Dose: 40 mg Guaifenesin (Mucinex) 600 mg PO BID PRN PRN Reason: Cough Stop: 07/03/17 11:46 Metoprolol Succinate (Toprol Xl) 150 mg PO DAILY RUTHY Stop: 07/06/17 09:01 Last Admin: 01/06/17 08:58 Dose: 150 mg Naloxone HCl (Narcan) 0.4 mg IVP Q2MIN PRN PRN Reason: Opioid Reversal Stop: 06/29/17 19:35 Nystatin (Mycostatin Suspension) 5 ml PO QID [facility] Stop: 07/07/17 09:01 Last Admin: 01/06/17 08:58 Dose: 5 ml Prednisone (Prednisone) 40 mg PO DAILY RUTHY Stop: 07/07/17 09:01 Last Admin: 01/06/17 08:58 Dose: 40 mg Warfarin Sodium (Coumadin Perpt) 1 each PO DAILY@1800 PRN PRN Reason: SEE COMMENTS Stop: 06/30/17 18:01 - Imaging and Cardiology Chest Xray: report reviewed Echo: report reviewed - EKG Interpretation EKG results cardiology: other (Previous 12 hour telemetry reviewed with average heart rate 110, atrial fibrillation. PVCs noted.) Consult Discharge Plan - Plan Referrals: Narcisa Ramos, CLINICAL BIOSTATISTICIAN [Primary Care Provider] -
[2017-01-06] MEDS: Ipratropium/Albuterol Neb 3 ML IH SCH ×4 (10:24→20:20)
--- NOTE | 2017-01-06 13:01 | Internal Med Progress Note ---
Date of Encounter: 01/06/17 Time of Encounter: 12:57 - Assessment and plan (1) Acute exacerbation of chronic obstructive pulmonary disease (COPD) Current Visit: Yes Status: Acute Assessment and plan: acute copd exacerbation likely secondary to viral bronchitis/ chronic respiratory failure taper prednisone over 2 weeks oxygen supportive therapy ( 2 Lt at home) . Completed 8 days of levaquin. Old chart was reviewed, patient has a chronic CO2 retention. (2) Oral thrush Current Visit: Yes Status: Acute Assessment and plan: continue nystatin day 2 (3) Atrial fibrillation with rapid ventricular response Current Visit: Yes Status: Chronic Assessment and plan: Rate is still high in the 120s. metoprolol ( home dose 100 mg daily ) increased to 150 mg by cardiology but not controlling HR increase to 200 mg daily devided in 100 mg BID did not tolerate cardizem , makes her sick. On Coumadin for anticoagulation, Monitor INR . Consulted cardio for further management. (4) Diastolic CHF Current Visit: No Status: Chronic Assessment and plan: Continue home medications. continue lasix Qualifiers: Congestive heart failure chronicity: chronic Qualified Code(s): I50.32 - Chronic diastolic (congestive) heart failure (5) DVT prophylaxis Current Visit: Yes Status: Acute Assessment and plan: Patient is on Coumadin. Monitor INR - Subjective Interval history: feels still short of breath, tachycardic in the 120s , denies CP , no abdominal pain , no dysuria, no diarrhea, did not tolerated cardizem - Constitutional Vitals: Temp Pulse Resp BP Pulse Ox 97.6 F 92 16 113/84 95 01/06/17 11:09 01/06/17 11:09 01/06/17 11:09 01/06/17 11:09 01/06/17 11:09 General appearance: Present: cooperative, A&O X 3, answers questions appropriately - Head Head exam: Present: atraumatic, normocephalic - Eye Eye exam: Present: PERRL, conjuntiva pink, sclera anicteric Pupils: Present: PERRL - Neck Neck exam general surgery: Present: supple, trachea midline. Absent: lymphadenopathy - Respiratory Respiratory exam: Present: decreased breath sounds, CTAB, rales (minimal bibasilar crackles). Absent: accessory muscle use, rhonchi, wheezes - Cardiovascular Cardiovascular exam: Present: irregular rhythm, RRR, +S1, +S2, tachycardia. Absent: diastolic murmur, gallop, rubs, systolic murmur - GI/Abdominal GI/Abdominal exam: Present: normal bowel sounds, soft, no peritoneal signs. Absent: distended, tenderness - Extremities Exam Extremities exam: Present: warm, radial pulses palpable and symetrical. Absent : calf tenderness, cyanotic, pedal edema - Neurological Exam Neurological exam: Present: CN II-XII intact, oriented X3, no focal deficits. Absent: pronater drift, facial droop, speech deficit - Skin Skin exam: Present: dry, intact Internal Medicine: Result - Labs CBC & Chem 7: 01/05/17 05:25 01/05/17 05:25 - ABG Interpretation ABG results: ABG ABG pH 7.44 pH Units (7.32-7.45) 12/31/16 08:14 ABG pCO2 70 mmHg (35-45) H* 12/31/16 08:14 ABG pO2 52 mmHg (85-104) L 12/31/16 08:14 ABG O2 Saturation 88 % (95-98) L 12/31/16 08:14 PT/INR, D-dimer PT 28.3 Seconds (9.4-12.1) H 01/06/17 05:24 Consult Discharge Plan - Plan Referrals: Narcisa Ramos CNP [Primary Care Provider] -
[2017-01-06] MEDS ORDERED: *HR* Warfarin 2.5 MG TABLET PO ONE (18:00)
[2017-01-07 06:07] LABS: INR 2.3; Prothrombin Time 25.7 Seconds (9.4-12.1)
[2017-01-07] MEDS: Ipratropium/Albuterol Neb 3 ML IH SCH ×3 (10:38→15:44)
[2017-01-07 11:59] VITALS: BP 93/75
[2017-01-07] MEDS: Nystatin SUSP 5 ML UD.LIQ PO SCH (12:09)
[2017-01-07] MEDS: Aspirin Enteric Coated 81 MG Tablet PO SCH (12:09)
[2017-01-07] MEDS: predniSONE 20 MG TABLET PO SCH (12:09)
[2017-01-07] MEDS: Metoprolol XL (24 HR) Succ 50 MG TAB.ER.24H PO SCH (12:42)
[2017-01-07] MEDS: Furosemide 40 MG TABLET PO SCH (12:42)
--- NOTE | 2017-01-07 14:22 | Discharge Summary ---
Date of Encounter: 01/07/17 Time of Encounter: 14:17 - Discharge Diagnosis (1) Acute exacerbation of chronic obstructive pulmonary disease (COPD) Priority: Primary Status: Acute Comments: acute copd exacerbation likely secondary to viral bronchitis/ chronic respiratory failure (2) Atrial fibrillation with rapid ventricular response Priority: Primary Status: Chronic Comments: Likely exacerbated by acute COPD exacerbation (3) Oral thrush Priority: Secondary Status: Acute (4) Diastolic CHF Priority: Secondary Status: Chronic Qualifiers: Congestive heart failure chronicity: chronic Qualified Code(s): I50.32 - Chronic diastolic (congestive) heart failure (5) DVT prophylaxis Priority: Secondary Status: Acute - Discharge Medications Prescriptions: Metoprolol XL (24 HR) Succ [Toprol Xl] 100 mg PO BID #60 tab.er.24h PredniSONE 40 mg PO DAILY 12 Days Home Medications: Albuterol Sulfate [Albuterol Inhaler] 2 puff IH Q4H PRN 08/10/15 [History] Aspirin Enteric Coated [Aspirin EC] 81 mg PO DAILY 08/10/15 [History] Furosemide 40 mg PO BID 08/10/15 [History] Ipratropium/Albuterol Sulfate [Combivent Respimat Inhal Clive] 1 puff IH QID [History] Warfarin [Coumadin] 3.5 mg PO SUTH 08/10/15 [History] Ipratropium/Albuterol Neb [Duoneb] 3 ml IH QID PRN 12/28/16 [History] Oxygen 2 l NS AD 12/28/16 [History] Warfarin [Coumadin] 3 mg PO [id number] 12/28/16 [History] Metoprolol XL (24 HR) Succ [Toprol Xl] 100 mg PO BID #60 tab.er.24h 01/07/17 [Rx ] PredniSONE 40 mg PO DAILY 12 Days 01/07/17 [Rx] Allergies/Adverse Reactions: Allergies Erythromycin Base Adverse Reaction (Verified 12/28/16 17:02) Unknown patient unsure nicotine [From Nicoderm CQ] Adverse Reaction (Verified 12/28/16 17:02) Rash Date of admission: 12/29/16 07:58 Primary care physician: Narcisa Ramos CNP Consults: 01/04/17 13:38 Consult to Cardiology [CONS] Routine Comment: Consulting Provider: Cardiology [facility] Reason for Consult: A Fib with RVR Call Completed: Yes 01/04/17 14:43 Consult to Occupational Therapy [CONS] Routine Comment: Evaluate, develop and implement POC Consult to Physical Therapy [CONS] Routine Comment: Evaluate, develop and implement POC 01/04/17 16:19 Consult to Pulmonology [CONS] Routine Consulting Provider: [facility] Reason for Consult: Dr. Villatoro notified Time Notified: 15:45 Call Completed: Yes - Patient Status Disposition: Home Health Service Condition: Fair Overall status at discharge: patient is progressing back to baseline - Discharge Instructions Follow Up With: Sloan Sands DO [Partnered Physician] - 01/27/17 1:00 pm Narcisa Ramos CNP [Primary Care Provider] - Forms: ED Satisfaction Letter Additional Instructions: Follow with primary care physician within the next 7 days. Taper prednisone. Continue Toprol 100 mg twice a day, may hold the dose if her heart rate is lower than 55 bpm. Continue inhalers. Follow with cardiology within the next 2 weeks - Diet and Activity Activity: wear oxygen at all times Diet: low fat, low cholesterol Hospital course: Ms. Loomis is a 76 year old female with a relevant past medical history of severe COPD oxygen dependent, a.fib, diastolic heart failure, hyperlipidemia, and HTN. SHe was admitted to the hospital for increased shortness of breath. Patient wears home O2 at 2lpm per nasal cannula. She has been in atrial fibrillation with RVR since her admission. Cardiology was consulted due to RVR. Patient denied dizziness or lightheadedness at this time. Stated breathing is much better today. Of note, patient changed her code status changed to DNR-CCA/DNI, however refused palliative care consult. Patient stated she feels she is ready to go home today. She came with a diagnosis of acute copd exacerbation likely secondary to viral bronchitis/ chronic respiratory failure. Received IV steroids and completed 8 days of Levaquin. During her hospitalization she developed thrush and was started on nystatin oral. During her hospitalization, was started on cardizem and had an adverse reaction to complain of flushing, sweating and refuses to take that medication as she became nauseated, sweaty, and somewhat dizzy. During her hospitalization, her INR was as high as 3.1 likely secondary to the use of antibiotics, today is 2.3. Her heart rate has been very difficult to control and her dose of metoprolol succinate has been progressively been increased. She is better controlled today after splitting her dose in 2 doses of 100 mg twice a day. - Time Spent with Patient Total time spent providing and/or coordinating discharge services: Greater than 30 minutes (40 min) - Constitutional Vitals: Temp Pulse Resp BP Pulse Ox 97.5 F L 101 18 93/75 95 01/07/17 11:54 01/07/17 11:54 01/07/17 11:54 01/07/17 11:54 01/07/17 12:27 General appearance: Present: cooperative, A&O X 3, answers questions appropriately - Head Head exam: Present: atraumatic, normocephalic - Eye Eye exam: Present: PERRL, conjuntiva pink, sclera anicteric Pupils: Present: PERRL - Neck Neck exam general surgery: Present: supple, trachea midline. Absent: lymphadenopathy - Respiratory Respiratory exam: Present: decreased breath sounds (very diminished breath sounds with minimal bibasilar fine crackles), CTAB. Absent: accessory muscle use, rales, rhonchi, wheezes - Cardiovascular Cardiovascular exam: Present: RRR, +S1, +S2. Absent: diastolic murmur, gallop, rubs, systolic murmur - GI/Abdominal GI/Abdominal exam: Present: normal bowel sounds, soft, no peritoneal signs. Absent: distended, tenderness - Extremities Exam Extremities exam: Present: warm, radial pulses palpable and symetrical. Absent : calf tenderness, cyanotic, pedal edema Additional comments: Severe kyphosis, small excoriations in both lower extremities with +1 pitting edema both lower extremities - Neurological Exam Neurological exam: Present: CN II-XII intact, oriented X3, no focal deficits. Absent: pronater drift, facial droop, speech deficit - Skin Skin exam: Present: dry, intact
--- NOTE | 2017-01-07 14:28 | Physician Discharge Referral ---
Home Health/Hosp Referral Info Transfer to: Home Health Provider in Charge Post Discharge: PCP - Diagnosis (1) Acute exacerbation of chronic obstructive pulmonary disease (COPD) Status: Acute (2) Atrial fibrillation with rapid ventricular response Status: Chronic (3) Oral thrush Status: Acute (4) Diastolic CHF Status: Chronic (5) DVT prophylaxis Status: Acute - Respiratory Orders Oxygen / L per min (2 L/m) Smoking Cessation: Smoking cessation has been advised. For more information, call the [place] Tobacco Quit Line at 7-051-ACBQ-NOW. - Diet/Nutrition Diet/Nutrition Orders: Cardiac - Services Needed Following services are medically necessary services: Home Health Aide, Physical Therapy Home Care Orders: Follow with primary care physician within the next 7 days. Taper prednisone. Continue Toprol 100 mg twice a day, may hold the dose if her heart rate is lower than 55 bpm. Continue inhalers. Follow with cardiology within the next 2 weeks - Transfer Medications Prescriptions: Metoprolol XL (24 HR) Succ [Toprol Xl] 100 mg PO BID #60 tab.er.24h PredniSONE 40 mg PO DAILY 12 Days Home Medications: Albuterol Sulfate [Albuterol Inhaler] 2 puff IH Q4H PRN 08/10/15 [History] Aspirin Enteric Coated [Aspirin EC] 81 mg PO DAILY 08/10/15 [History] Furosemide 40 mg PO BID 08/10/15 [History] Ipratropium/Albuterol Sulfate [Combivent Respimat Inhal [place]] 1 puff IH QID [History] Warfarin [Coumadin] 3.5 mg PO SUTH 08/10/15 [History] Ipratropium/Albuterol Neb [Duoneb] 3 ml IH QID PRN 12/28/16 [History] Oxygen 2 l NS AD 12/28/16 [History] Warfarin [Coumadin] 3 mg PO [id number] 12/28/16 [History] Metoprolol XL (24 HR) Succ [Toprol Xl] 100 mg PO BID #60 tab.er.24h 01/07/17 [Rx ] PredniSONE 40 mg PO DAILY 12 Days 01/07/17 [Rx] Allergies/Adverse Reactions: Allergies diltiazem [From Cardizem] Adverse Reaction (Verified 01/07/17 14:22) See Comments flushing, sweating Erythromycin Base Adverse Reaction (Verified 12/28/16 17:02) Unknown patient unsure nicotine [From Nicoderm CQ] Adverse Reaction (Verified 12/28/16 17:02) Rash Certification: Further, I certify that my clinical findings support that this patient is homebound (i.e. absences from home require considerable and taxing effort and are for medical reasons or adventism services or infrequently or short duration when for other reasons) because: Homebound Reason: Patient requires assistance of a person or device to safely leave home Attestation: My signature below is to certify that this patient is under my care and that I, or nurse practitioner, or a physician's pharmacy assistant working with me, has a face-to -face encounter with this patient.
[2017-01-07] MEDS ORDERED: *HR* Warfarin 3 MG TABLET PO ONE (18:00)
== END 2017-01-07 19:40 | disposition home health service (06) | DRG 190 ==
LOC: 2NENU 15:07 → EMEROO 15:07 → SUATTDRO 17:25 → 2NENU 17:50 → SUATTDRO 12-29 07:58
PROVIDERS: ADMIT Internal Medicine; ATTEND Internal Medicine

== ENCOUNTER 2019-05-30 09:45 | Inpatient (IN) ==
[2019-05-30] MEDS ORDERED: 0.9 % Sodium Chloride 1,000 ML IVC ONE ×3 (09:52→11:16)
[2019-05-30] MEDS ORDERED: 0.9 % Sodium Chloride 2,000 ML ONE (09:54)
--- NOTE | 2019-05-30 10:06 | Emergency Department Note ---
Disposition Clinical Impression: Cardiac arrest, Atrial fibrillation with rapid ventricular response, Lactic acidosis Hypotension Qualifiers: Hypotension type: unspecified hypotension type Qualified Code(s): I95.9 - Hypotension, unspecified Anemia Qualifiers: Anemia type: unspecified type Qualified Code(s): D64.9 - Anemia, unspecified Disposition: Admitted As Inpatient Condition: Critical Referrals: Abran Santos MD [Primary Care Provider] - Forms: ED Satisfaction Letter Time of Disposition: 10:50 CPR HPI - General Chief Complaint: ED Cardiac Arrest/CPR Stated Complaint: full code Time Seen by Provider: 05/30/19 09:52 Source: EMS Mode of arrival: EMS Limitations: altered mental status, physical limitation Nursing Notes Reviewed: Yes Vital Signs Reviewed: Yes - History of Present Illness HPI Narrative: Patient sent from the [facility] due to a rapid and progressive decline in alertness and mental status. She was recently diagnosed with a pulmonary embolism and started on eliquis. The diagnosis was made on 05/10/19 No other information is able to be obtained at the time of the patient's arrival. CPR was started by EMS en route Witnessed Arrest: No Pt Complaint: other (progressive decline in function) Timing confirmed by: caregiver Place: MT/S[facility] Initial Findings in the Field: lethargic, agonal ROSC in the Field: No Associated Injuries: No Known history of: PE Treatments Prior to Arrival: BMV, chest compressions - Related Data Home Medications Medication Instructions Recorded Confirmed Albuterol Sulfate [Proventil 2 puff IH Q4H PRN 08/10/15 05/10/19 Inhaler] Aspirin Enteric Coated [Aspirin EC] 81 mg PO DAILY 08/10/15 05/10/19 Ipratropium/Albuterol Sulfate 1 puff IH QID 08/10/15 05/10/19 [Combivent Respimat Inhal [place]] Ipratropium/Albuterol Neb [Duoneb] 3 ml IH QID PRN 12/28/16 05/10/19 Furosemide [Lasix] 40 mg PO DAILY 05/10/19 05/10/19 Metoprolol Succinate 100 mg PO DAILY 05/10/19 05/10/19 Allergies Allergy/AdvReac Type Severity Reaction Status Date / Time diltiazem [From Cardizem] AdvReac See Verified 01/07/17 14:22 Comments Erythromycin Base AdvReac Unknown Verified 12/28/16 17:02 nicotine [From Nicoderm CQ] AdvReac Rash Verified 12/28/16 17:02 Limitations: ROS unobtainable due to patients medical condition CPR PMH - Past Medical History Medical history: Reports: atrial fibrillation, CHF, COPD, hyperlipidemia, hypertension Female Surgical history: Reports: cancer surgery, knee replacement, orthopedic, other Psychiatric history: Reports: no psych history - Social History Smoking Status: Former smoker Alcohol use: Reports: none Drug use: Reports: none Physical Exam - General Limitations: altered mental status, physical limitation General appearance: obtunded, other - Head Head exam: atraumatic - Eye Eye exam: Present: normal appearance - Neck Neck exam: Present: normal inspection, full ROM - Chest Chest inspection: Present: normal inspection, symmetric chest wall rise - Respiratory Respiratory exam: Present: other (Bradypneic. Agonal breaths. Coarse breath sounds with bagging) - Cardiovascular Cardiovascular exam: Present: tachycardia, irregular rhythm - Abdominal Exam Abdominal exam: Present: soft, Non-Tender - Extremities Exam Extremities exam: Present: pedal edema - Neurological Exam Neurological exam: Present: other (GCS 3 initially) - Skin Skin exam: Present: warm, dry, intact Course Course Narrative: Patient presents in [place] arrest. She did not have an identifiable blood pressure. She was obtunded and not protecting her airway. Endotracheal intubation was performed by the resident physician under my supervision. She did respond to IV fluids. She remains in atrial fibrillation with rapid ventricular response. I did review the transcribed report of her chest CT dated 05/10/19 showing a pulmonary embolism with some right heart strain. This could have contributed to her current condition but she is responding with ventilation support and IV fluids at this time. She will require an intensive care unit admission - Reevaluation(s) Reevaluation #1: Central line placed by the resident physician under my supervision. Please see his note Time: 11:12 Vital Signs Temperature 0 F L 05/30/19 09:47 Pulse Rate 147 05/30/19 09:47 Respiratory Rate 24 05/30/19 09:47 Blood Pressure 122/96 05/30/19 09:47 O2 Sat by Pulse Oximetry 100 05/30/19 09:47 Temperature 0 F L 05/30/19 09:47 Pulse Rate 124 05/30/19 11:00 Respiratory Rate 10 05/30/19 10:10 Blood Pressure 71/58 05/30/19 11:00 O2 Sat by Pulse Oximetry 80 05/30/19 11:16 Oxygen Delivery Oxygen Delivery Ventilator Cardiac Arrest/CPR - MDM Narrative Medical decision making narrative: The patient remains hypotensive but with atrial fibrillation/RVR. I am hesitant to provide norepinephrine or epinephrine for pressure support due to beta antagonism and anticipated tachycardia. I will initiate Triston-Synephrine and provided IV verapamil, if rate control is required - Medical Records Medical records reviewed: Yes I reviewed the patient's medical records. - Lab Data Lab results reviewed: Yes I reviewed the patient's lab results. Result diagrams: 05/30/19 09:51 05/30/19 09:51 Lab Results 05/30/19 05/30/19 05/30/19 Range/Units 09:51 09:51 09:51 WBC 13.4 H (4.3-11.1) K/mcL RBC 3.15 L (3.82-4.97) M/mcL Hgb 9.8 L (11.5-15.4) g/dL Hct 33.3 L (35.3-44.9) % MCV 105.7 H (83.0-100.0) fL MCH 31.1 (28.0-33.3) pg MCHC 29.4 L (31.6-35.5) g/dL RDW 14.6 H (11.5-14.5) % Plt Count 201 (140-400) K/mcL MPV 9.9 (9.4-12.4) fL Immature Gran % 1.9 (0-4) % Seg Neutrophils % 52.1 % Lymphocytes % 36.2 % Monocytes % 9.2 % Eosinophils % 0.2 % Basophils % 0.4 % Neutrophils # 7.0 (1.6-8.9) K/mcL Lymphocytes # 4.9 H (0.6-4.6) K/mcL Monocytes # 1.2 (0.0-1.3) K/mcL Eosinophils # 0.0 (0.0-0.6) K/mcL Basophils # 0.1 (0.0-0.2) K/mcL Nucleated RBCs/100 WBC 0.2 H (0) /100 WBC PT 27.3 H (9.4-12.1) Seconds INR 2.4 APTT 30.6 (26.0-36.0) Seconds Sample Site ABG pH (7.32-7.45) pH Units ABG pCO2 (35-45) mmHg ABG pO2 (85-104) mmHg ABG HCO3 (21-27) mEq/L ABG Total CO2 (20-26) mEq/L ABG O2 Saturation (95-98) % ABG Base Excess (-2 to 3) mEq/L Dalton Test Respiration Rate O2 Delivery Device Blood Gas Modality Inspired O2 (1-15=lpm [id number]=%) Tidal Volume cc PEEP cm H2O Sodium 138 (136-145) mEq/L Potassium 4.6 (3.5-5.1) mEq/L Chloride 85 L (98-107) mEq/L Carbon Dioxide 34 H (23-29) mEq/L BUN 19 (8-23) mg/dL Creatinine 1.07 (0.60-1.20) mg/dL Est GFR ( Amer) > 60 (> 60) Est GFR (Non-Af Amer) 50 L (> 60) BUN/Creatinine Ratio 18 (6-26) Glucose 143 H (70-105) mg/dL Calculated Osmolality 291 (280-300) Lactic Acid (0.5-2.2) mmol/L Calcium 8.8 (8.6-10.3) mg/dL Total Bilirubin 0.9 (0.3-1.0) mg/dL Direct Bilirubin 0.3 H (0.0-0.2) mg/dL Indirect Bilirubin 0.6 (0.0-1.2) mg/dL AST 101 H (13-39) Units/L ALT 74 H (7-52) Units/L Alkaline Phosphatase 57 (34-104) Units/L Ammonia (16-53) mcmol/L Creatine Kinase 51 (30-223) Units/L Troponin I 0.18 H* (< 0.04) ng/mL Serum Total Protein 5.4 L (6.4-8.9) g/dL Albumin 3.5 (3.5-5.7) g/dL Globulin 1.9 L (2.4-3.5) g/dL Albumin/Globulin Ratio 1.8 (1.1-2.2) Urine Color (Yellow) Urine Clarity (Clear) Urine pH (5.0-8.0) pH Units Ur Specific [place] (1.010-1.025) Urine Protein (Neg-Trace) mg/dL Urine Glucose (UA) (Normal) mg/dL Urine Ketones (Negative) mg/dL Urine Blood (Negative) Urine Nitrite (Negative) Urine Bilirubin (Negative) Urine Urobilinogen (Normal) mg/dL Ur Leukocyte Esterase (Negative) 05/30/19 05/30/19 05/30/19 Range/Units 10:20 10:20 10:20 WBC (4.3-11.1) K/mcL RBC (3.82-4.97) M/mcL Hgb (11.5-15.4) g/dL Hct (35.3-44.9) % MCV (83.0-100.0) fL MCH (28.0-33.3) pg MCHC (31.6-35.5) g/dL RDW (11.5-14.5) % Plt Count (140-400) K/mcL MPV (9.4-12.4) fL Immature Gran % (0-4) % Seg Neutrophils % % Lymphocytes % % Monocytes % % Eosinophils % % Basophils % % Neutrophils # (1.6-8.9) K/mcL Lymphocytes # (0.6-4.6) K/mcL Monocytes # (0.0-1.3) K/mcL Eosinophils # (0.0-0.6) K/mcL Basophils # (0.0-0.2) K/mcL Nucleated RBCs/100 WBC (0) /100 WBC PT (9.4-12.1) Seconds INR APTT (26.0-36.0) Seconds Sample Site L Radial ABG pH 7.24 L (7.32-7.45) pH Units ABG pCO2 62 H (35-45) mmHg ABG pO2 447 H (85-104) mmHg ABG HCO3 27 (21-27) mEq/L ABG Total CO2 29 H (20-26) mEq/L ABG O2 Saturation 100 H (95-98) % ABG Base Excess -1 (-2 to 3) mEq/L Dalton Test N/A Respiration Rate 10 O2 Delivery Device Adult Vent Blood Gas Modality VC Inspired O2 100.0 (1-15=lpm [id number]=%) Tidal Volume 400 cc PEEP 5 cm H2O Sodium (136-145) mEq/L Potassium (3.5-5.1) mEq/L Chloride (98-107) mEq/L Carbon Dioxide (23-29) mEq/L BUN (8-23) mg/dL Creatinine (0.60-1.20) mg/dL Est GFR ( Amer) (> 60) Est GFR (Non-Af Amer) (> 60) BUN/Creatinine Ratio (6-26) Glucose (70-105) mg/dL Calculated Osmolality (280-300) Lactic Acid > 10.0 H* (0.5-2.2) mmol/L Calcium (8.6-10.3) mg/dL Total Bilirubin (0.3-1.0) mg/dL Direct Bilirubin (0.0-0.2) mg/dL Indirect Bilirubin (0.0-1.2) mg/dL AST (13-39) Units/L ALT (7-52) Units/L Alkaline Phosphatase (34-104) Units/L Ammonia 84 H (16-53) mcmol/L Creatine Kinase (30-223) Units/L Troponin I (< 0.04) ng/mL Serum Total Protein (6.4-8.9) g/dL Albumin (3.5-5.7) g/dL Globulin (2.4-3.5) g/dL Albumin/Globulin Ratio (1.1-2.2) Urine Color (Yellow) Urine Clarity (Clear) Urine pH (5.0-8.0) pH Units Ur Specific [place] (1.010-1.025) Urine Protein (Neg-Trace) mg/dL Urine Glucose (UA) (Normal) mg/dL Urine Ketones (Negative) mg/dL Urine Blood (Negative) Urine Nitrite (Negative) Urine Bilirubin (Negative) Urine Urobilinogen (Normal) mg/dL Ur Leukocyte Esterase (Negative) 05/30/19 Range/Units 10:52 WBC (4.3-11.1) K/mcL RBC (3.82-4.97) M/mcL Hgb (11.5-15.4) g/dL Hct (35.3-44.9) % MCV (83.0-100.0) fL MCH (28.0-33.3) pg MCHC (31.6-35.5) g/dL RDW (11.5-14.5) % Plt Count (140-400) K/mcL MPV (9.4-12.4) fL Immature Gran % (0-4) % Seg Neutrophils % % Lymphocytes % % Monocytes % % Eosinophils % % Basophils % % Neutrophils # (1.6-8.9) K/mcL Lymphocytes # (0.6-4.6) K/mcL Monocytes # (0.0-1.3) K/mcL Eosinophils # (0.0-0.6) K/mcL Basophils # (0.0-0.2) K/mcL Nucleated RBCs/100 WBC (0) /100 WBC PT (9.4-12.1) Seconds INR APTT (26.0-36.0) Seconds Sample Site ABG pH (7.32-7.45) pH Units ABG pCO2 (35-45) mmHg ABG pO2 (85-104) mmHg ABG HCO3 (21-27) mEq/L ABG Total CO2 (20-26) mEq/L ABG O2 Saturation (95-98) % ABG Base Excess (-2 to 3) mEq/L [place] Test Respiration Rate O2 Delivery Device Blood Gas Modality Inspired O2 (1-15=lpm [id number]=%) Tidal Volume cc PEEP cm H2O Sodium (136-145) mEq/L Potassium (3.5-5.1) mEq/L Chloride (98-107) mEq/L Carbon Dioxide (23-29) mEq/L BUN (8-23) mg/dL Creatinine (0.60-1.20) mg/dL Est GFR ( Amer) (> 60) Est GFR (Non-Af Amer) (> 60) BUN/Creatinine Ratio (6-26) Glucose (70-105) mg/dL Calculated Osmolality (280-300) Lactic Acid (0.5-2.2) mmol/L Calcium (8.6-10.3) mg/dL Total Bilirubin (0.3-1.0) mg/dL Direct Bilirubin (0.0-0.2) mg/dL Indirect Bilirubin (0.0-1.2) mg/dL AST (13-39) Units/L ALT (7-52) Units/L Alkaline Phosphatase (34-104) Units/L Ammonia (16-53) mcmol/L Creatine Kinase (30-223) Units/L Troponin I (< 0.04) ng/mL Serum Total Protein (6.4-8.9) g/dL Albumin (3.5-5.7) g/dL Globulin (2.4-3.5) g/dL Albumin/Globulin Ratio (1.1-2.2) Urine Color Yellow (Yellow) Urine Clarity Cloudy A (Clear) Urine pH 7.0 (5.0-8.0) pH Units Ur Specific [place] 1.013 (1.010-1.025) Urine Protein 30 H (Neg-Trace) mg/dL Urine Glucose (UA) Normal (Normal) mg/dL Urine Ketones Negative (Negative) mg/dL Urine Blood Small H (Negative) Urine Nitrite Negative (Negative) Urine Bilirubin Negative (Negative) Urine Urobilinogen Normal (Normal) mg/dL Ur Leukocyte Esterase Large H (Negative) - Radiology Data Radiology results reviewed: Yes I reviewed the patient's radiology results. - EKG Data EKG attestation: Yes I reviewed and interpreted this EKG. EKG results narrative: Irregularly irregular rhythm rate 169 QRS 109 QT/QTC 237/391. No acute ST segment elevation. Baseline artifact present. Study compared to previous dated 05/10/19 Critical Care Time Critical Care Time: Yes Total Critical Care Time: 75 Attestation: The high probability of a clinically significant, sudden or life threatening deterioration of the [] system(s) required my full and direct attention, intervention and personal management. The aggregate critical care time was [] minutes. This time is in addition to time spent performing reported procedures but includes the following: [] Data Review and interpretation [] Patient assessment and monitoring of vital signs [] Documentation [] Medication orders and management
[2019-05-30 10:07] LABS: Basophils # 0.1 K/mcL (0.0-0.2); Basophils % 0.4 %; Eosinophils % 0.2 %; Hematocrit 33.3 % (35.3-44.9); Hemoglobin 9.8 g/dL (11.5-15.4); Immature Granulocytes % 1.9 % (0-4); Lymphocytes # 4.9 K/mcL (0.6-4.6); Lymphocytes % 36.2 %; Mean Corpuscular HGB Conc 29.4 g/dL (31.6-35.5); Mean Corpuscular Hemoglobin 31.1 pg (28.0-33.3); Mean Corpuscular Volume 105.7 fL (83.0-100.0); Mean Platelet Volume 9.9 fL (9.4-12.4); Monocytes # 1.2 K/mcL (0.0-1.3); Monocytes % 9.2 %; Nucleated Red Blood Cells 0.2 /100 WBC (0); Platelet Count 201 K/mcL (140-400); Red Blood Count 3.15 M/mcL (3.82-4.97); Red Cell Distribution Width 14.6 % (11.5-14.5); Segmented Neutrophils % 52.1 %; White Blood Count 13.4 K/mcL (4.3-11.1)
--- NOTE | 2019-05-30 10:07 | Emergency Department Note ---
Disposition Clinical Impression: Cardiac arrest Disposition: Still a Patient Forms: ED Satisfaction Letter Time of Disposition: 10:08 General Adult HPI - General Chief complaint: ED Cardiac Arrest/CPR Stated complaint: full code Time Seen by Provider: 05/30/19 09:52 Source: EMS Limitations: physical limitation - History of Present Illness HPI Narrative: This is a procedure note only. Pain Scale: 0 - Related Data Home Medications Medication Instructions Recorded Confirmed Albuterol Sulfate [Proventil 2 puff IH Q4H PRN 08/10/15 05/10/19 Inhaler] Aspirin Enteric Coated [Aspirin EC] 81 mg PO DAILY 08/10/15 05/10/19 Ipratropium/Albuterol Sulfate 1 puff IH QID 08/10/15 05/10/19 [Combivent Respimat Inhal [place]] Ipratropium/Albuterol Neb [Duoneb] 3 ml IH QID PRN 12/28/16 05/10/19 Furosemide [Lasix] 40 mg PO DAILY 05/10/19 05/10/19 Metoprolol Succinate 100 mg PO DAILY 05/10/19 05/10/19 Allergies Allergy/AdvReac Type Severity Reaction Status Date / Time diltiazem [From Cardizem] AdvReac See Verified 01/07/17 14:22 Comments Erythromycin Base AdvReac Unknown Verified 12/28/16 17:02 nicotine [From Nicoderm CQ] AdvReac Rash Verified 12/28/16 17:02 Past Medical History - Past Medical History Medical history: Reports: atrial fibrillation, CHF, COPD, hyperlipidemia, hypertension Surgical history: Reports: cancer surgery, knee replacement, orthopedic, other Psychiatric history: Reports: no psych history - Social History Smoking Status: Former smoker Smokeless Tobacco Status: No Alcohol use: Reports: none Drug use: Reports: none Physical Exam - General Limitations: physical limitation General appearance: other Course Vital Signs Temperature 0 F L 05/30/19 09:47 Pulse Rate 147 05/30/19 09:47 Respiratory Rate 24 05/30/19 09:47 Blood Pressure 122/96 05/30/19 09:47 O2 Sat by Pulse Oximetry 100 05/30/19 09:47 Temperature 0 F L 05/30/19 09:47 Pulse Rate 147 05/30/19 09:47 Respiratory Rate 24 05/30/19 09:47 Blood Pressure 122/96 05/30/19 09:47 O2 Sat by Pulse Oximetry 100 05/30/19 09:47 Oxygen Delivery Oxygen Delivery Ambu Bag Procedures - Intubation Time out performed: No (Emergent intubation for cardiac arrest.) sedative: none Laryngoscope: Rico ET Tube Size: 7.5 ET Tube Uncuffed: No Tube Secured Depth (cm): 21 Tube Secured Location: lips Tube Placement Confirmation: visualized tube passing through cords, equal breath sounds bilaterally, no breath sounds over epigastrium, confirmation by capnometry Patient Tolerated Procedure: well Intubation Complications: none
[2019-05-30 10:14] LABS: INR 2.4; Prothrombin Time 27.3 Seconds (9.4-12.1)
[2019-05-30 10:16] LABS: Activated Partial Thrombo Time 30.6 Seconds (26.0-36.0)
[2019-05-30 10:23] LABS: ABG Base Excess -1 mEq/L (-2 to 3); ABG HCO3 27 mEq/L (21-27); ABG Oxygen Saturation 100 % (95-98); ABG PCO2 62 mmHg (35-45); ABG PH 7.24 pH Units (7.32-7.45); ABG PO2 447 mmHg (85-104); ABG TCO2 29 mEq/L (20-26); Blood Gas Modality VC; Blood Gas PEEP 5 cm H2O; Blood Gas VT 400 cc
[2019-05-30] MEDS ORDERED: Phenylephrine 20 MG in D5% in Water 250 ML IVC SCH (10:30)
[2019-05-30 10:35] LABS: Alanine Aminotransferase 74 Units/L (7-52); Albumin 3.5 g/dL (3.5-5.7); Albumin/Globulin Ratio 1.8 (1.1-2.2); Alkaline Phosphatase 57 Units/L (34-104); Aspartate Amino Transferase 101 Units/L (13-39); BUN/Creatinine Ratio 18 (6-26); Bilirubin,Direct 0.3 mg/dL (0.0-0.2); Bilirubin,Indirect 0.6 mg/dL (0.0-1.2); Bilirubin,Total 0.9 mg/dL (0.3-1.0); Blood Urea Nitrogen 19 mg/dL (8-23); Calcium 8.8 mg/dL (8.6-10.3); Carbon Dioxide 34 mEq/L (23-29); Chloride 85 mEq/L (98-107); Creatine Kinase 51 Units/L (30-223); Globulin 1.9 g/dL (2.4-3.5); Glucose 143 mg/dL (70-105); Osmolality,Calculated 291 (280-300); Potassium 4.6 mEq/L (3.5-5.1); Sodium 138 mEq/L (136-145); Total Protein 5.4 g/dL (6.4-8.9); Troponin I 0.18 ng/mL (< 0.04); eGFR For African Americans > 60 (> 60); eGFR For Non-African Americans 50 (> 60)
[2019-05-30 11:03] LABS: Bilirubin,Urine Negative (Negative); Blood,Urine Small (Negative); Clarity,Urine Cloudy (Clear); Color,Urine Yellow (Yellow); Glucose,Urine (UA) Normal (Normal); Ketones,Urine Negative (Negative); Leukocyte Esterase,Urine Large (Negative); Nitrite,Urine Negative (Negative); Protein,Urine 30 mg/dL (Neg-Trace); Specific Gravity,Urine 1.013 (1.010-1.025); Urobilinogen,Urine Normal (Normal)
[2019-05-30 11:06] LABS: Bacteria,Urine None Seen per hpf (None-Few); Squamous Epithelial Cell,Urine Many per lpf (None-Few); WBC,Urine 50-100 per hpf (0-3)
[2019-05-30] MEDS ORDERED: Piperacillin/Tazobactam 3.375 GM in 0.9 % Sodium Chloride Mini Bag 100 ML IVPB ONE (11:12)
[2019-05-30] MEDS: Norepinephrine 4 MG in D5% in Water 250 ML IVC SCH ×2 (11:32→17:02)
--- NOTE | 2019-05-30 11:33 | Emergency Department Note ---
Disposition Clinical Impression: Cardiac arrest, Atrial fibrillation with rapid ventricular response, Lactic acidosis Hypotension Qualifiers: Hypotension type: unspecified hypotension type Qualified Code(s): I95.9 - Hypotension, unspecified Anemia Qualifiers: Anemia type: unspecified type Qualified Code(s): D64.9 - Anemia, unspecified Disposition: Admitted As Inpatient Condition: Critical Referrals: Abran Santos MD [Primary Care Provider] - Forms: ED Satisfaction Letter Time of Disposition: 11:38 General Adult HPI - General Chief complaint: ED Cardiac Arrest/CPR Stated complaint: full code Time Seen by Provider: 05/30/19 09:52 Source: EMS Mode of arrival: EMS Limitations: altered mental status, physical limitation - History of Present Illness HPI Narrative: This is a procedure note. Pain Scale: 0 - Related Data Home Medications Medication Instructions Recorded Confirmed Albuterol Sulfate [Proventil 2 puff IH Q4H PRN 08/10/15 05/10/19 Inhaler] Aspirin Enteric Coated [Aspirin EC] 81 mg PO DAILY 08/10/15 05/10/19 Ipratropium/Albuterol Sulfate 1 puff IH QID 08/10/15 05/10/19 [Combivent Respimat Inhal [place]] Ipratropium/Albuterol Neb [Duoneb] 3 ml IH QID PRN 12/28/16 05/10/19 Furosemide [Lasix] 40 mg PO DAILY 05/10/19 05/10/19 Metoprolol Succinate 100 mg PO DAILY 05/10/19 05/10/19 Allergies Allergy/AdvReac Type Severity Reaction Status Date / Time diltiazem [From Cardizem] AdvReac See Verified 01/07/17 14:22 Comments Erythromycin Base AdvReac Unknown Verified 12/28/16 17:02 nicotine [From Nicoderm CQ] AdvReac Rash Verified 12/28/16 17:02 Past Medical History - Past Medical History Medical history: Reports: atrial fibrillation, CHF, COPD, hyperlipidemia, hypertension Surgical history: Reports: cancer surgery, knee replacement, orthopedic, other Psychiatric history: Reports: no psych history - Social History Smoking Status: Former smoker Smokeless Tobacco Status: No Alcohol use: Reports: none Drug use: Reports: none Physical Exam - General Limitations: altered mental status, physical limitation General appearance: obtunded, other Course Vital Signs Temperature 0 F L 05/30/19 09:47 Pulse Rate 147 05/30/19 09:47 Respiratory Rate 24 05/30/19 09:47 Blood Pressure 122/96 05/30/19 09:47 O2 Sat by Pulse Oximetry 100 05/30/19 09:47 Temperature 0 F L 05/30/19 09:47 Pulse Rate 124 05/30/19 11:00 Respiratory Rate 10 05/30/19 10:10 Blood Pressure 71/58 05/30/19 11:00 O2 Sat by Pulse Oximetry 80 05/30/19 11:16 Oxygen Delivery Oxygen Delivery Ventilator Procedures - Central Line Placement Right IJ Central Line Inserted*: Yes Central Line Catheter Replacement*: No Central Line Insertion: emergent Consent Obtained: verbal consent Procedural Pause: verify patient name and date of , boubacar and assess the site Patient Placed on Monitor/Pulse Ox: Yes During the Procedure: clinician is wearing sterile gloves, cap, mask,& gown during insertion, sterile field and sterile technique are maintained, patient's face is covered with drape or mask and wearing a cap, everyone in room is wearing a mask Central Line Prep: Chlorhexidine scrub, sterile drapes applied Prep the Procedure Site: apply chloraprep to the skin using a back and forth scrubbing motion, apply chloraprep for 30 seconds (upper body), 1-2 min (femoral sites), allow prep to dry, drape the patient with a full body drape Ultrasound Used for Placement: Yes Central Line Lumen Inserted: triple Post Procedure: sutured in place, good blood return, all ports aspirated, flushed, capped, sterile dressing applied, guide wire removed and visualized, dressing is dated Post Procedure X-Ray: tip of catheter in good position Patient Tolerated Procedure: well, no complications Complications: none Name of Clinician Inserting Central Line: Chino Saldivar Clinician Assisting/Completing Checklist: Donna Kitchen Date: 05/30/19 Time: 11:35 Medical Decision Making - Lab Data Result diagrams: 05/30/19 09:51 05/30/19 09:51 Lab Results 05/30/19 05/30/19 05/30/19 Range/Units 09:51 09:51 09:51 WBC 13.4 H (4.3-11.1) K/mcL RBC 3.15 L (3.82-4.97) M/mcL Hgb 9.8 L (11.5-15.4) g/dL Hct 33.3 L (35.3-44.9) % MCV 105.7 H (83.0-100.0) fL MCH 31.1 (28.0-33.3) pg MCHC 29.4 L (31.6-35.5) g/dL RDW 14.6 H (11.5-14.5) % Plt Count 201 (140-400) K/mcL MPV 9.9 (9.4-12.4) fL Immature Gran % 1.9 (0-4) % Seg Neutrophils % 52.1 % Lymphocytes % 36.2 % Monocytes % 9.2 % Eosinophils % 0.2 % Basophils % 0.4 % Neutrophils # 7.0 (1.6-8.9) K/mcL Lymphocytes # 4.9 H (0.6-4.6) K/mcL Monocytes # 1.2 (0.0-1.3) K/mcL Eosinophils # 0.0 (0.0-0.6) K/mcL Basophils # 0.1 (0.0-0.2) K/mcL Nucleated RBCs/100 WBC 0.2 H (0) /100 WBC PT 27.3 H (9.4-12.1) Seconds INR 2.4 APTT 30.6 (26.0-36.0) Seconds Sample Site ABG pH (7.32-7.45) pH Units ABG pCO2 (35-45) mmHg ABG pO2 (85-104) mmHg ABG HCO3 (21-27) mEq/L ABG Total CO2 (20-26) mEq/L ABG O2 Saturation (95-98) % ABG Base Excess (-2 to 3) mEq/L Dalton Test Respiration Rate O2 Delivery Device Blood Gas Modality Inspired O2 (1-15=lpm [id number]=%) Tidal Volume cc PEEP cm H2O Sodium 138 (136-145) mEq/L Potassium 4.6 (3.5-5.1) mEq/L Chloride 85 L (98-107) mEq/L Carbon Dioxide 34 H (23-29) mEq/L BUN 19 (8-23) mg/dL Creatinine 1.07 (0.60-1.20) mg/dL Est GFR ( Amer) > 60 (> 60) Est GFR (Non-Af Amer) 50 L (> 60) BUN/Creatinine Ratio 18 (6-26) Glucose 143 H (70-105) mg/dL Calculated Osmolality 291 (280-300) Lactic Acid (0.5-2.2) mmol/L Calcium 8.8 (8.6-10.3) mg/dL Total Bilirubin 0.9 (0.3-1.0) mg/dL Direct Bilirubin 0.3 H (0.0-0.2) mg/dL Indirect Bilirubin 0.6 (0.0-1.2) mg/dL AST 101 H (13-39) Units/L ALT 74 H (7-52) Units/L Alkaline Phosphatase 57 (34-104) Units/L Ammonia (16-53) mcmol/L Creatine Kinase 51 (30-223) Units/L Troponin I 0.18 H* (< 0.04) ng/mL Serum Total Protein 5.4 L (6.4-8.9) g/dL Albumin 3.5 (3.5-5.7) g/dL Globulin 1.9 L (2.4-3.5) g/dL Albumin/Globulin Ratio 1.8 (1.1-2.2) Urine Color (Yellow) Urine Clarity (Clear) Urine pH (5.0-8.0) pH Units Ur Specific [place] (1.010-1.025) Urine Protein (Neg-Trace) mg/dL Urine Glucose (UA) (Normal) mg/dL Urine Ketones (Negative) mg/dL Urine Blood (Negative) Urine Nitrite (Negative) Urine Bilirubin (Negative) Urine Urobilinogen (Normal) mg/dL Ur Leukocyte Esterase (Negative) 05/30/19 05/30/19 05/30/19 Range/Units 10:20 10:20 10:20 WBC (4.3-11.1) K/mcL RBC (3.82-4.97) M/mcL Hgb (11.5-15.4) g/dL Hct (35.3-44.9) % MCV (83.0-100.0) fL MCH (28.0-33.3) pg MCHC (31.6-35.5) g/dL RDW (11.5-14.5) % Plt Count (140-400) K/mcL MPV (9.4-12.4) fL Immature Gran % (0-4) % Seg Neutrophils % % Lymphocytes % % Monocytes % % Eosinophils % % Basophils % % Neutrophils # (1.6-8.9) K/mcL Lymphocytes # (0.6-4.6) K/mcL Monocytes # (0.0-1.3) K/mcL Eosinophils # (0.0-0.6) K/mcL Basophils # (0.0-0.2) K/mcL Nucleated RBCs/100 WBC (0) /100 WBC PT (9.4-12.1) Seconds INR APTT (26.0-36.0) Seconds Sample Site L Radial ABG pH 7.24 L (7.32-7.45) pH Units ABG pCO2 62 H (35-45) mmHg ABG pO2 447 H (85-104) mmHg ABG HCO3 27 (21-27) mEq/L ABG Total CO2 29 H (20-26) mEq/L ABG O2 Saturation 100 H (95-98) % ABG Base Excess -1 (-2 to 3) mEq/L [place] Test N/A Respiration Rate 10 O2 Delivery Device Adult Vent Blood Gas Modality VC Inspired O2 100.0 (1-15=lpm [id number]=%) Tidal Volume 400 cc PEEP 5 cm H2O Sodium (136-145) mEq/L Potassium (3.5-5.1) mEq/L Chloride (98-107) mEq/L Carbon Dioxide (23-29) mEq/L BUN (8-23) mg/dL Creatinine (0.60-1.20) mg/dL Est GFR ( Amer) (> 60) Est GFR (Non-Af Amer) (> 60) BUN/Creatinine Ratio (6-26) Glucose (70-105) mg/dL Calculated Osmolality (280-300) Lactic Acid > 10.0 H* (0.5-2.2) mmol/L Calcium (8.6-10.3) mg/dL Total Bilirubin (0.3-1.0) mg/dL Direct Bilirubin (0.0-0.2) mg/dL Indirect Bilirubin (0.0-1.2) mg/dL AST (13-39) Units/L ALT (7-52) Units/L Alkaline Phosphatase (34-104) Units/L Ammonia 84 H (16-53) mcmol/L Creatine Kinase (30-223) Units/L Troponin I (< 0.04) ng/mL Serum Total Protein (6.4-8.9) g/dL Albumin (3.5-5.7) g/dL Globulin (2.4-3.5) g/dL Albumin/Globulin Ratio (1.1-2.2) Urine Color (Yellow) Urine Clarity (Clear) Urine pH (5.0-8.0) pH Units Ur Specific [place] (1.010-1.025) Urine Protein (Neg-Trace) mg/dL Urine Glucose (UA) (Normal) mg/dL Urine Ketones (Negative) mg/dL Urine Blood (Negative) Urine Nitrite (Negative) Urine Bilirubin (Negative) Urine Urobilinogen (Normal) mg/dL Ur Leukocyte Esterase (Negative) 05/30/19 Range/Units 10:52 WBC (4.3-11.1) K/mcL RBC (3.82-4.97) M/mcL Hgb (11.5-15.4) g/dL Hct (35.3-44.9) % MCV (83.0-100.0) fL MCH (28.0-33.3) pg MCHC (31.6-35.5) g/dL RDW (11.5-14.5) % Plt Count (140-400) K/mcL MPV (9.4-12.4) fL Immature Gran % (0-4) % Seg Neutrophils % % Lymphocytes % % Monocytes % % Eosinophils % % Basophils % % Neutrophils # (1.6-8.9) K/mcL Lymphocytes # (0.6-4.6) K/mcL Monocytes # (0.0-1.3) K/mcL Eosinophils # (0.0-0.6) K/mcL Basophils # (0.0-0.2) K/mcL Nucleated RBCs/100 WBC (0) /100 WBC PT (9.4-12.1) Seconds INR APTT (26.0-36.0) Seconds Sample Site ABG pH (7.32-7.45) pH Units ABG pCO2 (35-45) mmHg ABG pO2 (85-104) mmHg ABG HCO3 (21-27) mEq/L ABG Total CO2 (20-26) mEq/L ABG O2 Saturation (95-98) % ABG Base Excess (-2 to 3) mEq/L [place] Test Respiration Rate O2 Delivery Device Blood Gas Modality Inspired O2 (1-15=lpm [id number]=%) Tidal Volume cc PEEP cm H2O Sodium (136-145) mEq/L Potassium (3.5-5.1) mEq/L Chloride (98-107) mEq/L Carbon Dioxide (23-29) mEq/L BUN (8-23) mg/dL Creatinine (0.60-1.20) mg/dL Est GFR ( Amer) (> 60) Est GFR (Non-Af Amer) (> 60) BUN/Creatinine Ratio (6-26) Glucose (70-105) mg/dL Calculated Osmolality (280-300) Lactic Acid (0.5-2.2) mmol/L Calcium (8.6-10.3) mg/dL Total Bilirubin (0.3-1.0) mg/dL Direct Bilirubin (0.0-0.2) mg/dL Indirect Bilirubin (0.0-1.2) mg/dL AST (13-39) Units/L ALT (7-52) Units/L Alkaline Phosphatase (34-104) Units/L Ammonia (16-53) mcmol/L Creatine Kinase (30-223) Units/L Troponin I (< 0.04) ng/mL Serum Total Protein (6.4-8.9) g/dL Albumin (3.5-5.7) g/dL Globulin (2.4-3.5) g/dL Albumin/Globulin Ratio (1.1-2.2) Urine Color Yellow (Yellow) Urine Clarity Cloudy A (Clear) Urine pH 7.0 (5.0-8.0) pH Units Ur Specific [place] 1.013 (1.010-1.025) Urine Protein 30 H (Neg-Trace) mg/dL Urine Glucose (UA) Normal (Normal) mg/dL Urine Ketones Negative (Negative) mg/dL Urine Blood Small H (Negative) Urine Nitrite Negative (Negative) Urine Bilirubin Negative (Negative) Urine Urobilinogen Normal (Normal) mg/dL Ur Leukocyte Esterase Large H (Negative)
[2019-05-30 11:55] LABS: RBC,Urine 0-3 per hpf (0-3); Renal Epithelial Cells,Urine Few per hpf (None-Few); Transitional Epi Cells,Urine Moderate per hpf (None-Few)
[2019-05-30] MEDS ORDERED: Furosemide 20 MG/2 ML VIAL IVP ONE (12:59)
[2019-05-30] MEDS: Phenylephrine 50 MG in D5% in Water 250 ML IVC SCH ×2 (14:28→21:45)
[2019-05-30] MEDS ORDERED: 0.9 % Sodium Chloride 500 ML ONE (15:25)
[2019-05-30] MEDS ORDERED: *HR* EPINEPHrine 1 MG/10 ML SYRINGE IVP ONE (15:46)
[2019-05-30] MEDS ORDERED: Naloxone 0.4 MG/ML INJ IVP PRN (15:48)
--- NOTE | 2019-05-30 15:52 | Procedure Note ---
Date of procedure: 05/30/19 Pre-op diagnosis: Cardiac arrest Post-op diagnosis: same Procedure: Informed consent was obtained from the /power of deputy county attorney. A timeout was performed prior to the procedure. The area of the right radial artery was cleaned and draped. The site was anesthetized with subcutaneous lidocaine. Utilizing ultrasound guidance the artery was cannulated and a wire was passed into the artery. The catheter was advanced into the artery and sutured into place. Good waveform noted on the monitor. A sterile dressing was placed. No untoward events. Was there an payroll assistant present: No Estimated blood loss (cc): 0 Specimen: none
--- NOTE | 2019-05-30 15:54 | Pulmonology History & Physical ---
Date of Encounter: 05/30/19 Time of Encounter: 15:54 Assessment and Plan (1) Cardiac arrest Current visit: Yes Status: Acute Unclear etiology of cardiac arrest. 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 However, she also had a recent pulmonary embolism, which would also be on the differential diagnosis. She also has risk factors for cardiac disease and has an elevated troponin. We will obtain a transthoracic echocardiogram. We will trend her troponin levels. I did discuss goals of care with the /POA at bedside. I explained aggressive care including therapeutic hypothermia and ongoing full CODE STATUS. He has been opted for a less aggressive approach and wanted to avoid therapeutic hypothermia and made her a DNR CCA. Potential withdrawal of care 24-48 hours if she does not show signs of neurologic recovery. (2) Acute and chronic respiratory failure ([id number]) Current visit: No Status: Acute Poor underlying pulmonary reserve related to advanced COPD. Continue full vent support in light of cardiac arrest, encephalopathy, and ongoing shock state. Qualifiers: Respiratory failure complication: hypoxia Qualified Code(s): J96.21 - Acute and chronic respiratory failure with hypoxia (3) Atrial fibrillation with rapid ventricular response Current visit: Yes Status: Chronic Per the patient has chronic A. fib. She is now an intermittent RVR. We will trial amiodarone bolus and infusion to assist with rate control. 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 Initial head imaging was unremarkable. We can consider repeat imaging if there is a change in her neuro exam. We will attempt to minimize sedation. A neuron-specific enolase is pending. As above, the family opted to not pursue hypothermia protocol. (5) Failure to thrive in adult Current visit: No Status: Acute I had goals of care discussion with the and the nephew at bedside. The patient at previously been a DNR, but her status had marginally improved and she requested a change back to full CODE STATUS. The states that she clearly would not want long-term mechanical ventilation or continue with ag gressive care if she had significant anoxic brain injury. We will consult palliative care in the a.m. to assist with goals of care. History of Present Illness Chief complaint: Cardiac arrest HPI: Ms. Loomis is a 79 year old female Of note, the patient is currently intubated and unresponsive. Therefore, unable to obtain a full history or review of systems. Information was obtained from the medical record, and discussed with hospital staff, and in discussion with family at bedside. Reportedly, the patient became ill at her nursing facility. EMS was called. She had a cardiac arrest in Route to the emergency department. She underwent ACLS and they were able to regain spontaneous circulation. Endotracheal tube was placed. She was noted to be in A. fib with RVR and hypotensive. A central venous catheter was placed and she was started on phenylephrine and norepinephrine. She was transferred to the ICU for ongoing care. Past Med Surg Social Fam HX - Past Medical History Medical history: atrial fibrillation, CHF, COPD, hyperlipidemia, hypertension Additional medical history: Previous history of small cell carcinoma Psychiatric history: no psych history - Past Surgical History Surgical History: cancer surgery, knee replacement, orthopedic, other Additional surgical history: knee replacement - Social History Smoking Status: Former smoker Smokeless Tobacco Status: No Alcohol use: none Drug use: none - Family History Father Living Status: Hx Family Cardiac Disorders: Yes Hx Family Respiratory Disorders: No Hx Family Cancer: No Hx Family GI Disorders: No Hx Family Endocrine Disorder: Yes (DM) Hx Family Neuromuscular Disorders: No Hx Family Neurologic Disorders: No Hx Family HEENT Disorders: No Hx Family Autoimmune Disorders: No Mother Living Status: Hx Family Cardiac Disorders: Yes Hx Family Respiratory Disorders: Yes Hx Family Cancer: No Hx Family GI Disorders: No Hx Family Endocrine Disorder: No Hx Family Neuromuscular Disorders: No Hx Family Neurologic Disorders: No Hx Family HEENT Disorders: No Hx Family Autoimmune Disorders: No Medications and Allergies Albuterol Sulfate [Proair Respiclick] 2 puff IH Q4H PRN 05/30/19 [History] Apixaban [Eliquis] 5 mg PO Q12H 05/30/19 [History] Aspirin 81 mg PO DAILY 05/30/19 [History] Atorvastatin Calcium [Lipitor] 20 mg PO DAILY 05/30/19 [History] Docusate Sodium [Dok] 100 mg PO BID 05/30/19 [History] Fluticasone/Umeclidin/Vilanter [Trelegy Ellipta 100-62.5-25] 1 puff IH DAILY 05/30/19 [History] Furosemide [Lasix] 40 mg PO DAILY 05/30/19 [History] HydrOXYzine [Atarax] 10 mg PO QID PRN 05/30/19 [History] Iprat-Albut 0.5-3(2.5) mg/3 ml 3 ml IH QID 05/30/19 [History] Ipratropium/Albuterol Neb [Duoneb] 3 ml IH QID PRN 05/30/19 [History] Metoprolol Succinate [Toprol Xl] 25 mg PO Q12H 05/30/19 [History] Metoprolol Succinate [Toprol Xl] 50 mg PO Q12H 05/30/19 [History] Mirtazapine 7.5 mg PO HS 05/30/19 [History] Polyethylene Glycol 3350 [MiraLAX] 17 gm PO DAILY PRN 05/30/19 [History] Saliva Stimulant Agents Comb.2 [Biotene Oralbalance] 44.3 ml MM PRN PRN 05/30/19 [History] Sennosides/Docusate Sodium [Stool Softener-Laxative Tablet] 2 each PO MOWEFR PRN 05/30/19 [History] Allergy/AdvReac Type Severity Reaction Status Date / Time diltiazem [From Cardizem] AdvReac See Verified 01/07/17 14:22 Comments Erythromycin Base AdvReac Unknown Verified 12/28/16 17:02 nicotine [From Nicoderm CQ] AdvReac Rash Verified 12/28/16 17:02 ROS unobtainable: due to endotracheal tube, due to mental status All Systems: The remainder of the systems were reviewed and are negative Physical Examination Vital Signs: Vital Signs, Last 4 Hours Temp Pulse Resp BP Pulse Ox 05/30/19 14:20 97.5 F L 128 15 89/66 75 05/30/19 14:00 148 95/84 82 05/30/19 13:20 88/66 05/30/19 13:19 137 14 77/63 89 05/30/19 13:11 120 66/42 75 05/30/19 12:55 96.6 F L 136 14 80/56 81 05/30/19 12:45 131 82/58 05/30/19 12:19 15 87/55 92 General appearance: other (Intubated, not interactive with caregivers) Eyes: nonicteric ENT: other (Endotracheal tube in place) Neck: supple Auscultation: bilateral: rhonchi Cardiovascular: irregular rhythm Gastrointestinal: soft, non-distended Integumentary: other (Scattered ecchymosis noted) Extremities: no cyanosis, edema other (Noninteractive with caregivers, pupils sluggish but reactive, breathing over the ventilator) Results - Laboratory Findings CBC and BMP: 05/30/19 09:51 05/30/19 09:51 ABG ABG pH 7.24 pH Units (7.32-7.45) L 05/30/19 10:20 ABG pCO2 62 mmHg (35-45) H 05/30/19 10:20 ABG pO2 447 mmHg (85-104) H 05/30/19 10:20 ABG O2 Saturation 100 % (95-98) H 05/30/19 10:20 PT/INR, D-dimer PT 27.3 Seconds (9.4-12.1) H 05/30/19 09:51 Abnormal lab findings: Abnormal lab results WBC 13.4 K/mcL (4.3-11.1) H 05/30/19 09:51 RBC 3.15 M/mcL (3.82-4.97) L 05/30/19 09:51 Hgb 9.8 g/dL (11.5-15.4) L 05/30/19 09:51 Hct 33.3 % (35.3-44.9) L 05/30/19 09:51 MCV 105.7 fL (83.0-100.0) H 05/30/19 09:51 MCHC 29.4 g/dL (31.6-35.5) L 05/30/19 09:51 RDW 14.6 % (11.5-14.5) H 05/30/19 09:51 Lymphocytes # 4.9 K/mcL (0.6-4.6) H 05/30/19 09:51 Nucleated RBCs/100 WBC 0.2 /100 WBC (0) H 05/30/19 09:51 PT 27.3 Seconds (9.4-12.1) H 05/30/19 09:51 ABG pH 7.24 pH Units (7.32-7.45) L 05/30/19 10:20 ABG pCO2 62 mmHg (35-45) H 05/30/19 10:20 ABG pO2 447 mmHg (85-104) H 05/30/19 10:20 ABG Total CO2 29 mEq/L (20-26) H 05/30/19 10:20 ABG O2 Saturation 100 % (95-98) H 05/30/19 10:20 Chloride 85 mEq/L (98-107) L 05/30/19 09:51 Carbon Dioxide 34 mEq/L (23-29) H 05/30/19 09:51 Est GFR (Non-Af Amer) 50 (> 60) L 05/30/19 09:51 Glucose 143 mg/dL (70-105) H 05/30/19 09:51 Lactic Acid 8.2 mmol/L (0.5-2.2) H* 05/30/19 14:40 Direct Bilirubin 0.3 mg/dL (0.0-0.2) H 05/30/19 09:51 AST 101 Units/L (13-39) H 05/30/19 09:51 ALT 74 Units/L (7-52) H 05/30/19 09:51 Ammonia 84 mcmol/L (16-53) H 05/30/19 10:20 Troponin I 0.18 ng/mL (< 0.04) H* 05/30/19 09:51 Serum Total Protein 5.4 g/dL (6.4-8.9) L 05/30/19 09:51 Globulin 1.9 g/dL (2.4-3.5) L 05/30/19 09:51 Urine Clarity Cloudy (Clear) A 05/30/19 10:52 Urine Protein 30 mg/dL (Neg-Trace) H 05/30/19 10:52 Urine Blood Small (Negative) H 05/30/19 10:52 Ur Leukocyte Esterase Large (Negative) H 05/30/19 10:52 Urine Microscopic WBC 50-100 per hpf (0-3) H 05/30/19 10:52 Ur Squamous Epith Cells Many per lpf (None-Few) H 05/30/19 10:52 Ur Transition Epith Cell Moderate per hpf (None-Few) H 05/30/19 10:52 Ur Culture Indicated? YES (NO) A 05/30/19 10:52
[2019-05-30] MEDS ORDERED: *HR* FentaNYL (PF) 100 MCG/2 ML VIAL IVP PRN (16:21)
[2019-05-30] MEDS ORDERED: Artificial Tears SOLN 15 ML BOTTLE BOTH EYES PRN (16:22)
[2019-05-30] MEDS ORDERED: Amiodarone Premix 360 MG/200 ML BAG IVC ONE (16:28)
[2019-05-30] MEDS ORDERED: *HR* Heparin 5,000 UNIT/ML VIAL IVP ONE (16:28)
[2019-05-30] MEDS ORDERED: Amiodarone Premix 150 MG/100 ML BAG IVPB ONE (16:28)
[2019-05-30] MEDS ORDERED: *HR* Heparin 5,000 UNIT/ML VIAL IVP PRN ×2 (16:28)
[2019-05-30] MEDS: Pantoprazole 40 MG VIAL IVP SCH (17:14)
[2019-05-30] MEDS: Artificial Tears SOLN 15 ML BOTTLE BOTH EYES SCH ×2 (17:14→23:29)
[2019-05-30] MEDS ORDERED: *HR* Dextrose 50 % in Water (Syg) 50 ML SYRINGE IVP PRN (17:24)
[2019-05-30] MEDS ORDERED: D5% in Water 1,000 ML IVC PRN (17:24)
[2019-05-30] MEDS ORDERED: Dextrose Gel 15 GM/37.5 ML TUBE PO PRN ×2 (17:24)
[2019-05-30 17:51] LABS: ABG Base Excess -2 mEq/L (-2 to 3); ABG HCO3 24 mEq/L (21-27); ABG Oxygen Saturation 100 % (95-98); ABG PCO2 47 mmHg (35-45); ABG PH 7.32 pH Units (7.32-7.45); ABG PO2 190 mmHg (85-104); ABG TCO2 26 mEq/L (20-26); Blood Gas Modality AF; Blood Gas PEEP 8 cm H2O; Blood Gas VT 400 cc
[2019-05-30] MEDS ORDERED: Vasopressin 40 UNIT in D5% in Water 100 ML IV SCH (18:15)
[2019-05-30 18:29] LABS: Basophils % 0.1 %; Hemoglobin 8.8 g/dL (11.5-15.4); Immature Granulocytes % 1.5 % (0-4); Lymphocytes # 1.2 K/mcL (0.6-4.6); Lymphocytes % 5.1 %; Mean Corpuscular HGB Conc 29.3 g/dL (31.6-35.5); Mean Corpuscular Hemoglobin 30.9 pg (28.0-33.3); Mean Corpuscular Volume 105.3 fL (83.0-100.0); Mean Platelet Volume 10.1 fL (9.4-12.4); Monocytes # 1.1 K/mcL (0.0-1.3); Monocytes % 4.7 %; Neutrophils # 20.4 K/mcL (1.6-8.9); Nucleated Red Blood Cells 0.1 /100 WBC (0); Platelet Count 184 K/mcL (140-400); Red Blood Count 2.85 M/mcL (3.82-4.97); Red Cell Distribution Width 14.8 % (11.5-14.5); Segmented Neutrophils % 88.6 %
--- NOTE | 2019-05-30 18:55 | Event Note ---
Date of Encounter: 05/30/19 Time of Encounter: 18:51 Ms. Loomis was noted to have elevated troponin with A. fib and RVR. She was having significant bleeding from her IV site additionally having bleeding from her OG tube. Her INR is 2.4. Her hemoglobin is noted to be 8.8 repeat CBC is pending. Given concern for ongoing bleeding will hold IV heparin at this time. Additionally discussed with family about CODE STATUS and her and son were in the room and reports that they would not want any CPR in case of cardiac arrest and believe she would not have wanted that either and wanted her to be DNR CCA.
[2019-05-30] MEDS ORDERED: Perflutren Lipid Microsphere 1.3 ML in 0.9 % Sodium Chloride 8.7 ML IVP ONE (19:24)
[2019-05-30] MEDS: Norepinephrine 8 MG in D5% in Water 250 ML IVC SCH (21:00)
[2019-05-30] MEDS: Piperacillin/Tazobactam 3.375 GM in 0.9 % Sodium Chloride Mini Bag 100 ML IVPB SCH (22:30)
[2019-05-30] MEDS: Chlorhexidine Rinse 15 ML MOUTHWASH MM SCH (22:31)
[2019-05-30] MEDS: Amiodarone Premix 360 MG/200 ML BAG IVC SCH (22:31)
[2019-05-31] MEDS: Norepinephrine 8 MG in D5% in Water 250 ML IVC SCH ×3 (01:27→11:34)
[2019-05-31] MEDS: Phenylephrine 50 MG in D5% in Water 250 ML IVC SCH ×2 (02:23→11:30)
[2019-05-31 03:35] LABS: Basophils % 0.1 %; Hematocrit 31.1 % (35.3-44.9); Hemoglobin 9.8 g/dL (11.5-15.4); Immature Granulocytes % 0.7 % (0-4); Lymphocytes % 3.9 %; Mean Corpuscular HGB Conc 31.5 g/dL (31.6-35.5); Mean Corpuscular Hemoglobin 30.6 pg (28.0-33.3); Mean Platelet Volume 10.3 fL (9.4-12.4); Nucleated Red Blood Cells 0.1 /100 WBC (0); Platelet Count 170 K/mcL (140-400); Red Cell Distribution Width 14.6 % (11.5-14.5); Segmented Neutrophils % 92.3 %; White Blood Count 24.9 K/mcL (4.3-11.1)
[2019-05-31 03:49] LABS: INR 3.6; Prothrombin Time 40.5 Seconds (9.4-12.1)
[2019-05-31 04:05] LABS: Albumin/Globulin Ratio 1.8 (1.1-2.2); Bilirubin,Direct 0.3 mg/dL (0.0-0.2); Bilirubin,Indirect 0.5 mg/dL (0.0-1.2); Bilirubin,Total 0.8 mg/dL (0.3-1.0); Globulin 1.7 g/dL (2.4-3.5); Magnesium 1.3 mg/dL (1.6-2.6); Potassium 3.1 mEq/L (3.5-5.1); Total Protein 4.7 g/dL (6.4-8.9)
[2019-05-31 04:35] LABS: Monocytes # 0.8 K/mcL (0.0-1.3)
[2019-05-31 04:36] LABS: Mean Corpuscular Volume 97.2 fL (83.0-100.0)
[2019-05-31 04:37] LABS: ABG Base Excess 5 mEq/L (-2 to 3); ABG HCO3 31 mEq/L (21-27); ABG Oxygen Saturation 100 % (95-98); ABG PCO2 50 mmHg (35-45); ABG PO2 239 mmHg (85-104); ABG TCO2 33 mEq/L (20-26); Blood Gas Modality ASSIST CONTROL; Blood Gas PEEP 8 cm H2O; Blood Gas VT 400 cc
[2019-05-31 04:43] LABS: Platelet Estimate Normal (Normal)
[2019-05-31] MEDS: Piperacillin/Tazobactam 3.375 GM in 0.9 % Sodium Chloride Mini Bag 100 ML IVPB SCH ×2 (05:14→12:00)
[2019-05-31] MEDS: Artificial Tears SOLN 15 ML BOTTLE BOTH EYES SCH ×3 (05:14→12:07)
--- NOTE | 2019-05-31 06:29 | Electrocardiograph Report ---
[place] [facility] Test Date: 2019-05-30 Pat Name: Germaine Loomis Department: [id number] Room: [facility] Gender: F [place] [employer] Attendant: : 1940 Requested By: Lokesh Sommer Order Number: [id number] Reading MD: Wang Brannon Measurements Intervals [place] Rate: 169 P: MO: QRS: 202 QRSD: 109 T: -27 QT: 237 QTc: 391 Interpretive Statements Atrial fibrillation with RVR Electronically Signed On 05-31-2019 6:28:02 EDT by Wang Brannon
[2019-05-31] MEDS ORDERED: *HR* Heparin 5,000 UNIT/ML VIAL IVP PRN ×2 (07:37)
[2019-05-31] MEDS ORDERED: *HR* Heparin 5,000 UNIT/ML VIAL IVP ONE (07:37)
[2019-05-31] MEDS ORDERED: Heparin 25,000 UNIT/250 ML D5W 25,000 UNIT/250 ML IV.SOLN IVC SCH ×2 (07:45→11:44)
[2019-05-31] MEDS: Pantoprazole 40 MG VIAL IVP SCH (08:33)
[2019-05-31] MEDS: Chlorhexidine Rinse 15 ML MOUTHWASH MM SCH (08:33)
--- NOTE | 2019-05-31 09:08 | Pulmonology Progress Note ---
Date of Encounter: 05/31/19 Time of Encounter: 07:50 Subjective Interval history: Nursing staff reports that vasopressin was discontinued overnight as well as norepinephrine decreased. No issues reported overnight. Propofol was discontinued this morning. Patient seen at bedside, intubated and sedated. Objective PUL Vital signs: Last Vital Signs Temp 98.1 F 05/31/19 08:33 Pulse 122 05/31/19 09:00 Resp 14 05/31/19 09:00 BP 100/64 05/31/19 09:00 Pulse Ox 100 05/31/19 09:00 Gen.: Elderly female. Intubated and sedated Skin: Good turgor. Blue/purple hue of bilateral feet. Eyes: Moist. Nonreactive to light-seem to be maximally constricted. Neck: No appreciable carotid bruits. Cardiac: Irregular rhythm. Tachycardic. Distant. Respiratory: Coarse rhonchi throughout. Posterior lower larsen not auscultated secondary to patient positioning GI: Soft. Normoactive bowel sounds Extremities: Capillary refill less than 2 seconds bilateral upper extremities. Venous stasis changes of lower extremities Neuro: Jayashree 6 Palliative care consult -Patient now terminally extubated. Palliative measures only currently. Encephalopathy -Consider secondary to anoxia versus infectious versus hepatic encephalopathy -Elevated white count. Ammonia elevated. AST/ALT elevated. -CT head 05/30/19 showed no acute abnormalities Plan: Earlier today: Propofol discontinued and patient is moving her eyes and mouth per nursing staff. Neuron specific enolase pending. Now Palliative care only Acute on chronic Heart failure with reduced ejection fraction Background -Consider exacerbated by recent pulmonary embolism versus infection versus ischemia S/Sx -Difficult to assess hepatojugular reflux or JVD secondary to patient head position. Lab -Troponin as below -BNP 2566 Reports -EKG rate above 150. Irregular rhythm . No P waves. Poor study. -CXR 05/30/19: Read as "possible small left effusion. Interstitial airspace opacities in the right lung may represent edema or developing pneumonia." -echo 01/04/17: LVEF 55%. Indeterminant diastolic function. Severely dilated left and right atria. Mild aortic regurg, mitral regurg, tricuspid regurg, pul monary hypertension. -Echo 05/30/19: LVEF 25-30%. Global LV systolic dysfunction. Indeterminant lópez tolic function. Severely dilated RV with severe RV hypokinesis. Severely dilated RA. Elevated right atrial pressure. Mild mitral regurg. Moderate to severe tricuspid regurg. Moderate to severe pulmonary hypertension. Pleural effusion. Plan: Earlier today: Home metoprolol, furosemide held secondary to shock. TSH pending. Now Palliative care only Cardiac arrest -Consider secondary to recent pulmonary embolus versus acute on chronic heart failure versus ischemia. Plan: Palliative care only NSTEMI -Likely type 2 in the setting of cardiac arrest versus type 1 as the cause of cardiac arrest -Troponins: 0.18> 1.34> 1.85> 2.47 Plan: Earlier today: Heparin drip began 05/31/19. Now Palliative care only Atrial fibrillation Background -consider 2/2 ischemia, structural changes of the heart, pulmonary embolism, hypoxia, e-lyte abnormalities -Chronic. non valvular Lab - potassium and magnesium low -EKG and CXR as above -echo 01/04/17: LVEF 55%. Indeterminant diastolic function. Severely dilated left and right atria. Mild aortic regurg, mitral regurg, tricuspid regurg, pulmonary hypertension. Plan: Earlier today: rate 103-137. Home apixaban held. Amiodarone. Now Palliative care only Septic Shock -Secondary to hospital-acquired pneumonia as seen on CXR 05/30/19 vs. UTI -also consider cardiogenic component -In cardiac arrest on arrival. Afebrile. White count elevated. -Right atrial pressure elevated. At least lower extremities cold. -Lactic acid initially greater than 10 > 8.2 -Has required phenylephrine and norepinephrine. Plan: earlier today : Recent MAP greater than 65. Continue to down titrate Norepinephrine as tolerable. Vancomycin day 12/08 and pip/tazo day 11/07. Blood cultures pending. Urine culture preliminary shows gram-positive cocci with sensitivities follow. Urine legionella, strep pneumo pending. MRSA swab pending. Canceled pending labs palliative care only. Multiorgan failure -septic versus cardiogenic shock as above -Encephalopathic -AST/ALT 05/31/19:2640/2312 from normal baseline -BUN/creatinine 05/31/19: 27/1.37 from normal baseline -Cardiac arrest requiring pressors as above Plan: Now Palliative care only Acute respiratory failure with hypercapnia and hypoxia -Likely secondary to recent pulmonary embolism, COPD exacerbation, pneumonia, cardiac arrest S/Sx -Cardiac arrest with no protection of airway. Labs -ABG 05/31/19 shows respiratory acidosis with concomitant metabolic alkalosis. Reports -CXR 05/30/19 as above Plan: Intubated and sedated. Optimize ventilation settings. Titrate sedation to [place] 2. Now palliative care only Pulmonary embolism -Submassive PE diagnosed 05/10/19 -Was on home apixaban Pneumonia -Hospital-acquired -Pro calcitonin 4.94 Plan: Now Palliative care only Hyponatremia Background -Likely secondary to acute kidney injury, low effective arterial volume from acute heart failure S/Sx -Skin turgor good. Has received around 5 L IV fluids. Labs -05/31/19: Calculated osmolality low. Corrected Sodium 130 Plan: earlier today: Serum osmolality and repeat sodium discontinued. Consider serum uric acid as well as urine osmolality, specific gravity, urea nitrogen, creatinine, sodium pending course and repeat labs. Now palliative only Hypokalemia -Likely secondary to acute kidney injury -EKG as above GLADIS -Likely secondary to shock -Creatinine 1.07>1.37. Transaminitis - likely secondary to shock -AST/ALT as above Ventilator Settings Ventilator Settings: Ventilator Settings, Last 8 Hours Ventilator Tidal Volume 400 Setting Ventilator Tidal Volume 400 Setting Ventilator Tidal Volume 400 Setting Ventilator Tidal Volume 400 Setting Ventilator Tidal Volume 400 Setting Ventilator Tidal Volume 400 Setting Ventilator Tidal Volume 400 Setting Ventilator Tidal Volume 400 Setting Ventilator Tidal Volume 400 Setting Ventilator Tidal Volume 400 Setting Ventilator Tidal Volume 400 Setting Ventilator Tidal Volume 400 Setting Ventilator Tidal Volume 400 Setting Ventilator Respiratory Rate 14 Setting Ventilator Respiratory Rate 14 Setting Ventilator Respiratory Rate 14 Setting Ventilator Respiratory Rate 14 Setting Ventilator Respiratory Rate 14 Setting Ventilator Respiratory Rate 14 Setting Ventilator Respiratory Rate 14 Setting Ventilator Respiratory Rate 14 Setting Ventilator Respiratory Rate 14 Setting Ventilator Respiratory Rate 14 Setting Ventilator Respiratory Rate 14 Setting Ventilator Respiratory Rate 14 Setting Ventilator Respiratory Rate 14 Setting Actual Respiratory Rate 14 Actual Respiratory Rate 14 Actual Respiratory Rate 14 Actual Respiratory Rate 14 Actual Respiratory Rate 14 Actual Respiratory Rate 14 Actual Respiratory Rate 14 Actual Respiratory Rate 14 Actual Respiratory Rate 14 Actual Respiratory Rate 14 Actual Respiratory Rate 14 Actual Respiratory Rate 14 Positive End Expiratory 8 Pressure Positive End Expiratory 8 Pressure Positive End Expiratory 8 Pressure Positive End Expiratory 8 Pressure Positive End Expiratory 8 Pressure Positive End Expiratory 8 Pressure Positive End Expiratory 8 Pressure Positive End Expiratory 8 Pressure Positive End Expiratory 8 Pressure Positive End Expiratory 8 Pressure Positive End Expiratory 8 Pressure Positive End Expiratory 8 Pressure Positive End Expiratory 8 Pressure Peak Inspiratory Airway 32 Pressure Peak Inspiratory Airway 30 Pressure Peak Inspiratory Airway 27 Pressure Peak Inspiratory Airway 28 Pressure Peak Inspiratory Airway 28 Pressure Peak Inspiratory Airway 28 Pressure Peak Inspiratory Airway 31 Pressure Peak Inspiratory Airway 31 Pressure Peak Inspiratory Airway 28 Pressure Peak Inspiratory Airway 31 Pressure Peak Inspiratory Airway 29 Pressure Peak Inspiratory Airway 31 Pressure Results - Laboratory Findings CBC and BMP: 05/31/19 09:20 05/31/19 09:20 ABG ABG pH 7.40 pH Units (7.32-7.45) 05/31/19 04:28 ABG pCO2 50 mmHg (35-45) H 05/31/19 04:28 ABG pO2 239 mmHg (85-104) H 05/31/19 04:28 ABG O2 Saturation 100 % (95-98) H 05/31/19 04:28 PT/INR, D-dimer PT 40.5 Seconds (9.4-12.1) H 05/31/19 03:14 Abnormal lab findings: Abnormal lab results WBC 24.9 K/mcL (4.3-11.1) H 05/31/19 03:14 RBC 3.20 M/mcL (3.82-4.97) L 05/31/19 03:14 Hgb 9.8 g/dL (11.5-15.4) L 05/31/19 03:14 Hct 31.1 % (35.3-44.9) L 05/31/19 03:14 MCV 105.3 fL (83.0-100.0) H 05/30/19 18:05 MCHC 31.5 g/dL (31.6-35.5) L 05/31/19 03:14 RDW 14.6 % (11.5-14.5) H 05/31/19 03:14 Neutrophils # 23.0 K/mcL (1.6-8.9) H 05/31/19 03:14 Lymphocytes # 4.9 K/mcL (0.6-4.6) H 05/30/19 09:51 Nucleated RBCs/100 WBC 0.1 /100 WBC (0) H 05/31/19 03:14 PT 40.5 Seconds (9.4-12.1) H 05/31/19 03:14 ABG pH 7.24 pH Units (7.32-7.45) L 05/30/19 10:20 ABG pCO2 50 mmHg (35-45) H 05/31/19 04:28 ABG pO2 239 mmHg (85-104) H 05/31/19 04:28 ABG HCO3 31 mEq/L (21-27) H 05/31/19 04:28 ABG Total CO2 33 mEq/L (20-26) H 05/31/19 04:28 ABG O2 Saturation 100 % (95-98) H 05/31/19 04:28 ABG Base Excess 5 mEq/L (-2 to 3) H 05/31/19 04:28 Sodium 129 mEq/L (136-145) L D 05/31/19 03:14 Potassium 3.1 mEq/L (3.5-5.1) L D 05/31/19 03:14 Chloride 90 mEq/L (98-107) L 05/31/19 03:14 Carbon Dioxide 34 mEq/L (23-29) H 05/30/19 09:51 BUN 27 mg/dL (8-23) H 05/31/19 03:14 Creatinine 1.37 mg/dL (0.60-1.20) H 05/31/19 03:14 Est GFR ( Amer) 45 (> 60) L 05/31/19 03:14 Est GFR (Non-Af Amer) 37 (> 60) L 05/31/19 03:14 Glucose 193 mg/dL (70-105) H 05/31/19 03:14 POC Glucose 369 mg/dL (70-99) H 05/31/19 00:22 Calculated Osmolality 278 (280-300) L 05/31/19 03:14 Lactic Acid 8.2 mmol/L (0.5-2.2) H* 05/30/19 14:40 Calcium 7.0 mg/dL (8.6-10.3) L 05/31/19 03:14 Magnesium 1.3 mg/dL (1.6-2.6) L 05/31/19 03:14 Direct Bilirubin 0.3 mg/dL (0.0-0.2) H 05/31/19 03:14 AST 2640 Units/L (13-39) H 05/31/19 03:14 ALT 2312 Units/L (7-52) H 05/31/19 03:14 Ammonia 84 mcmol/L (16-53) H 05/30/19 10:20 Troponin I 2.47 ng/mL (< 0.04) H* 05/31/19 03:14 Serum Total Protein 4.7 g/dL (6.4-8.9) L 05/31/19 03:14 Albumin 3.0 g/dL (3.5-5.7) L 05/31/19 03:14 Globulin 1.7 g/dL (2.4-3.5) L 05/31/19 03:14 Urine Clarity Cloudy (Clear) A 05/30/19 10:52 Urine Protein 30 mg/dL (Neg-Trace) H 05/30/19 10:52 Urine Blood Small (Negative) H 05/30/19 10:52 Ur Leukocyte Esterase Large (Negative) H 05/30/19 10:52 Urine Microscopic WBC 50-100 per hpf (0-3) H 05/30/19 10:52 Ur Squamous Epith Cells Many per lpf (None-Few) H 05/30/19 10:52 Ur Transition Epith Cell Moderate per hpf (None-Few) H 05/30/19 10:52 Ur Culture Indicated? YES (NO) A 05/30/19 10:52 - Microbiology Findings Microbiology Findings: Microbiology, Last 48 Hours 05/30/19 10:52 Urine Culture - Preliminary Urine,[place] Culture is incubating. 05/30/19 10:10 Blood Culture - Preliminary Peripheral Venipuncture Culture is incubating and being continuously monitored for growth. Final report to follow. 05/30/19 10:15 Blood Culture - Preliminary Peripheral Venipuncture Culture is incubating and being continuously monitored for growth. Final report to follow. - Clinical Findings Intake & Output: Intake & Output 05/30/19 05/31/19 05/31/19 23:59 07:59 15:59 Intake Total 1974.9 / 3685.0 871 / 871 Output Total 107 / 107 Balance 1974.9 / 3585.0 871 / 764 -107 / 764 Weight 60.6 kg Consult Discharge Plan - Plan Referrals: Abran Santos MD [Primary Care Provider] -
[2019-05-31 09:54] LABS: Mean Platelet Volume 10.9 fL (9.4-12.4); Red Cell Distribution Width 14.6 % (11.5-14.5)
[2019-05-31 09:58] LABS: Hematocrit 29.7 % (35.3-44.9); Hemoglobin 9.7 g/dL (11.5-15.4); Immature Platelets 7.8 % (1.1-6.1); Mean Corpuscular HGB Conc 32.7 g/dL (31.6-35.5); Mean Corpuscular Hemoglobin 31.1 pg (28.0-33.3); Mean Corpuscular Volume 95.2 fL (83.0-100.0); Red Blood Count 3.12 M/mcL (3.82-4.97); White Blood Count 22.2 K/mcL (4.3-11.1)
[2019-05-31 10:00] LABS: Prothrombin Time 34.5 Seconds (9.4-12.1)
[2019-05-31 10:05] LABS: Heparin anti-factor XA UFH > 2.00 IU/mL (0.30-0.70)
[2019-05-31 10:49] LABS: Activated Partial Thrombo Time 36.2 Seconds (26.0-36.0)
[2019-05-31] MEDS ORDERED: Calcium Gluconate 1gm/50mL 1 GM/50 ML BAG IVPB PRN (10:54)
[2019-05-31] MEDS ORDERED: Potassium Phosphate 44 MEQ in 0.9 % Sodium Chloride 250 ML IVPB PRN (10:54)
[2019-05-31] MEDS: Amiodarone Premix 360 MG/200 ML BAG IVC SCH (11:33)
[2019-05-31 13:02] LABS: Phosphorous 3.4 mg/dL (2.7-4.5)
[2019-05-31 13:03] LABS: Thyroid Stimulating Hormone 8.239 mcIU/mL (0.340-5.600)
[2019-05-31 13:16] LABS: VBG Ionized Calcium 0.92 mmol/L (1.15-1.35)
[2019-05-31] MEDS ORDERED: *HR* LORazepam 2 MG/ML VIAL IVP PRN (14:03)
[2019-05-31] MEDS ORDERED: Atropine Sulfate 1% 40 DROP/2 ML BOTTLE SL PRN (14:06)
[2019-05-31 14:07] VITALS: BP 97/62
[2019-05-31] MEDS ORDERED: FentaNYL (PF) 1,000 MCG in 0.9 % Sodium Chloride 80 ML IVC SCH (14:15)
[2019-05-31] MEDS ORDERED: *HR* FentaNYL (PF) 100 MCG/2 ML VIAL ONE (14:22)
[2019-05-31] MEDS ORDERED: *HR* LORazepam 2 MG/ML VIAL ONE (14:23)
[2019-05-31] MEDS ORDERED: *HR* FentaNYL (PF) 100 MCG/2 ML VIAL IVP PRN (14:24)
--- NOTE | 2019-05-31 14:32 | Palliative - Consult Note ---
Date of Encounter: 05/31/19 Time of Encounter: 14:30 - Assessment and Plan (1) Generalized pain Current Visit: Yes Status: Acute Assessment and plan: WIll begin Fentanyl drip at 50mcg/hr for comfort. Titrate as needed and provide boluses of 50mcg every 30 min PRN. (2) Dyspnea Current Visit: Yes Status: Acute Assessment and plan: After extubation, provide oxygen for comfort per nasal cannula. Utilize Fentanyl drip/boluses for pain as well as dyspnea Qualifiers: Dyspnea type: unspecified Qualified Code(s): R06.00 - Dyspnea, unspecified (3) Goals of care, counseling/discussion Current Visit: Yes Status: Acute Assessment and plan: Met with patient's Zhang, as well as niece Ashley and nephew. Updated on clinical status and Discussed goals of care at length and patient's previously known wishes. and family at bedside all state that patient would be very upset with "everything we were doing to her and all these tubes". states that he does not want to have her on machines any longer, and wants her to be comfortable. Code status transitioned to DNR-Comfort Care. She will be compassionately extubated when family ready,, and medications for symptom management of pain,, dyspnea,, and anxiety be ordered. Family is aware that she could pass away quickly, or may stabilize to be transferred out to floor. D/W Dr. Villatoro and Dr. Starks. If she transfers out of ICU, will remain under hospitalist. If she survives the night, will eval for hospice tomorrow. 80 min total time spent - 60 with patient and family with goal of care, coordina tion of care and counseling, and 20 for chart completion and communication with other providers. (4) Acute kidney injury Current Visit: Yes Status: Acute (5) Shock liver Current Visit: Yes Status: Acute (6) Cardiac arrest Current Visit: Yes Status: Acute (7) Encephalopathy Current Visit: Yes Status: Acute (8) Atrial fibrillation with rapid ventricular response Current Visit: Yes Status: Chronic Palliative-CN HPI - Data of Consult Consult date: 05/31/19 Requesting Physician: Joshua Villatoro MD Primary Care Provider: Abran Santos MD - Consult Narrative Palliative Care/Comfort Measures: Palliative care History of present illness: Ms. Loomis is a 79 year old female who was sent to hospital from [facility] with shortness of breath. Patient did have PEA arrest in EMS and CPR/ACLS was initiated. ROSC was achieved and she was admitted to ICU. Since admission, she has required vasopressor support. She has acute kidney injury and shock liver, elevated troponins and EF has decreased to 25%. Sedation has been off, and although she has reflexes, has not followed commands or purposeful movement. Patient has a history of multiple medical problems including: atrial fibrillation, CHF, COPD, hyperlipidemia, and hypertension. She was recently at [facility] and was diagnosed and treated for Pulmonary embolus. states that patient was originally on Coumadin for her atrial fibrillation, however, it became difficult to managed and was transitioned to Eloquis, however, she then refused to take it related to the cost. states that she was having symptoms for a few days prior to permitting him to call the squad at that time. She at one time was DNR Arrest, however this was reversed and she was initially full code on admission. After ICU team discussed with patient , she was transitioned to DNR-Arrest, as he did not think she would want to be coded again. Upon my visit, patient is restling quietly on vent with no sedation. , Zhang, and patients niece Ashley and nephew are at bedside providing support. Patient has no children. She appears in no acute distress and is comfortable. CC: Joshua Villatoro MD - Time Spent with Patient Time: Total time spent is greater than 50% in coordination of care (as documented) at patient's floor/unit and/or counseling patient: Past Med Surg Social Fam HX - Past Medical History Medical history: atrial fibrillation, CHF, COPD, hyperlipidemia, hypertension Additional medical history: Previous history of small cell carcinoma Psychiatric history: no psych history - Past Surgical History Surgical History: cancer surgery, knee replacement, orthopedic, other Additional surgical history: knee replacement - Social History Smoking Status: Former smoker Smokeless Tobacco Status: No Alcohol use: none Drug use: none - Family History Father Living Status: Hx Family Cardiac Disorders: Yes Hx Family Respiratory Disorders: No Hx Family Cancer: No Hx Family GI Disorders: No Hx Family Endocrine Disorder: Yes (DM) Hx Family Neuromuscular Disorders: No Hx Family Neurologic Disorders: No Hx Family HEENT Disorders: No Hx Family Autoimmune Disorders: No Mother Living Status: Hx Family Cardiac Disorders: Yes Hx Family Respiratory Disorders: Yes Hx Family Cancer: No Hx Family GI Disorders: No Hx Family Endocrine Disorder: No Hx Family Neuromuscular Disorders: No Hx Family Neurologic Disorders: No Hx Family HEENT Disorders: No Hx Family Autoimmune Disorders: No Medications and Allergies Albuterol Sulfate [Proair Hfa] 2 puff IH Q4H PRN 05/30/19 [History] Apixaban [Eliquis] 5 mg PO Q12H 05/30/19 [History] Aspirin 81 mg PO DAILY 05/30/19 [History] Atorvastatin Calcium [Lipitor] 20 mg PO DAILY 05/30/19 [History] Docusate Sodium [Colace] 100 mg PO BID 05/30/19 [History] Fluticasone/Umeclidin/Vilanter [Trelegy Ellipta 100-62.5-25] 1 puff IH DAILY 05/30/19 [History] Furosemide [Lasix] 40 mg PO DAILY 05/30/19 [History] HydrOXYzine [Atarax] 10 mg PO Q4H PRN 05/30/19 [History] Iprat-Albut 0.5-3(2.5) mg/3 ml 3 ml IH QID 05/30/19 [History] Ipratropium/Albuterol Sulfate [Iprat-Albut 0.5-3(2.5) mg/3 ml] 3 ml IH QID 05/30/19 [History] Ipratropium/Albuterol Sulfate [Iprat-Albut 0.5-3(2.5) mg/3 ml] 3 ml IH QID PRN 05/30/19 [History] Metoprolol Succinate [Toprol Xl] 25 mg PO Q12H 05/30/19 [History] Metoprolol Succinate [Toprol Xl] 50 mg PO Q12H 05/30/19 [History] Mirtazapine 7.5 mg PO HS 05/30/19 [History] Polyethylene Glycol 3350 [MiraLAX] 17 gm PO DAILY PRN 05/30/19 [History] Saliva Stimulant [Biotene Moisturizing Rinse] 1 spray PO AD PRN 05/30/19 [History] Sennosides/Docusate Sodium [Stool Softener-Laxative Tablet] 2 each PO MOWEFR PRN 05/30/19 [History] Sennosides/Docusate Sodium [Stool Softener-Laxative Tablet] 2 tab PO Q48H PRN [History] Allergy/AdvReac Type Severity Reaction Status Date / Time diltiazem [From Cardizem] AdvReac See Verified 01/07/17 14:22 Comments Erythromycin Base AdvReac Unknown Verified 12/28/16 17:02 nicotine [From Nicoderm CQ] AdvReac Rash Verified 12/28/16 17:02 ROS unobtainable: due to endotracheal tube Palliative Care-Exam - Constitutional Vitals: Temp Pulse Resp BP Pulse Ox 97.5 F L 129 18 97/62 100 05/31/19 11:15 05/31/19 14:00 05/31/19 14:00 05/31/19 14:00 05/31/19 12:00 General appearance: Present: no acute distress - Head Head Exam: Present: normal inspection, normocephalic - Eye Eye exam: Present: normal appearance - Respiratory Respiratory exam: Present: decreased breath sounds, CTAB - Cardiovascular Cardiovascular exam: Present: irregular rhythm - GI/Abdominal Exam GI/Abdominal exam: Present: diminished bowel sounds, soft - Catheter Type: Urethral ([place]) Additional comments: No urine output - Extremities Exam Additional comments: Bilateral feet purple and cold to touch - Neurological Exam Additional comments: Patient does have gag reflex, moving head and mouth some. Does not follow commands at present. - Skin Skin exam: Present: dry, pallor, warm Internal Medicine - CN: Reslt - Labs CBC & Chem 7: 05/31/19 09:20 05/31/19 09:20 Labs: Short CBC 05/30/19 05/31/19 05/31/19 Range/Units 18:05 03:14 09:20 WBC 23.0 H D 24.9 H 22.2 H (4.3-11.1) K/mcL Hgb 8.8 L 9.8 L 9.7 L (11.5-15.4) g/dL Hct 30.0 L 31.1 L 29.7 L (35.3-44.9) % Plt Count 184 170 158 (140-400) K/mcL Neutrophils # 20.4 H 23.0 H (1.6-8.9) K/mcL BMP 05/31/19 05/31/19 03:14 09:20 Sodium 129 L D Potassium 3.1 L D 2.9 L Chloride 90 L Carbon Dioxide 28 BUN 27 H Creatinine 1.37 H Glucose 193 H Calcium 7.0 L Cardiac Enzymes 05/30/19 05/30/19 05/31/19 Range/Units 16:40 22:55 03:14 Troponin I 1.34 H* 1.85 H* 2.47 H* (< 0.04) ng/mL Liver Function 05/31/19 Range/Units 03:14 Total Bilirubin 0.8 (0.3-1.0) mg/dL Direct Bilirubin 0.3 H (0.0-0.2) mg/dL AST 2640 H (13-39) Units/L ALT 2312 H (7-52) Units/L Alkaline Phosphatase 71 (34-104) Units/L Albumin 3.0 L (3.5-5.7) g/dL - ABG Interpretation ABG results: ABG ABG pH 7.40 pH Units (7.32-7.45) 05/31/19 04:28 ABG pCO2 50 mmHg (35-45) H 05/31/19 04:28 ABG pO2 239 mmHg (85-104) H 05/31/19 04:28 ABG O2 Saturation 100 % (95-98) H 05/31/19 04:28 PT/INR, D-dimer PT 34.5 Seconds (9.4-12.1) H 05/31/19 09:20 - Impressions Impressions Echocardiogram 05/30/19 16:29 Impressions: LVEF 25-30%. Normal LV chamber size, wall thickness. Severe global left ventricular systolic dysfunction. Indeterminate diastolic function. Flattening of the interventricular septum noted. Severely dilated right ventricle. Severe right ventricular hypokinesis. Severely dilated right atrium. Mild mitral regurgitation. Moderate to severe tricuspid regurgitation. Moderate-severe pulmonary hypertension. Estimated RVSP is 53-58 mmHg. Estimated RA pressure is 15-20 mmHg. Pleural effusion noted. Left Ventricular Wall Motion: Rest Echo Findings The apex, apical inferior, mid inferior, basal inferior, apical anterior, mid anterior, basal anterior, apical septal, mid inferior septal, basal inferior septal, apical lateral, mid anterior lateral, basal anterior lateral, mid anterior septal, mid inferior lateral, basal anterior septal and basal inferior lateral delarosa were hypokinetic. Findings: Study Quality * Technically sub-optimal due to clinical status. ECG Findings * Unable to determine rhythm due to artifact. Left Ventricle * LVEF 25-30%. * Normal LV chamber size, wall thickness. * Severe global left ventricular systolic dysfunction. * Indeterminate diastolic function. * Flattening of the interventricular septum noted. Right Ventricle * Severely dilated right ventricle. * Severe right ventricular hypokinesis. Left Atrium * Moderately dilated left atrium. Right Atrium * Severely dilated right atrium. Interatrial Septum * Interatrial septum not well evaluated. Aortic Valve * Trileaflet aortic valve. * No aortic stenosis. * Trace aortic regurgitation. Mitral Valve * Normal mitral valve structure. * Mild mitral regurgitation. * No mitral stenosis. Tricuspid Valve * Normal tricuspid valve structure. * Moderate to severe tricuspid regurgitation. * Moderate-severe pulmonary hypertension. * Estimated RVSP is 53-58 mmHg. * Estimated RA pressure is 15-20 mmHg. Pulmonic Valve * Normal pulmonic valve structure. * Trace pulmonic regurgitation. Aorta * Normally sized aortic root. Pericardium * The pericardium appears normal. IVC * The IVC is not dilated. * < 50% respiratory change. Pulmonary Artery * Normal visualized portions of the main pulmonary artery. Pleural Effusion * Pleural effusion noted. Consult Discharge Plan - Plan Referrals: Abran Santos MD [Primary Care Provider] - Palliative Quality Palliative Quality: Screen for Code Status: Yes, Screen for Goals of Care: Yes, Screen for Pain: Yes, If Pain Regimen Started, Initiate Bowel Regimen: NA, Scr een for Nausea/Vomitting: Yes Code Status: 05/30/19 15:48 Resuscitation Status: Active [RES] Routine Comment: Resuscitation Status: DNR-Comfort Care-Arrest 05/31/19 14:01 DNR [Resuscitation Status: Active] [RES] Routine Comment: Resuscitation Status: DNR-Comfort Care
--- NOTE | 2019-05-31 16:55 | Death Note ---
Discharge Sum: Summary - Date and Time Date of admission: 05/30/19 13:06 Date of : 05/31/19 Time of : 15:47 - Summary Details: Patient is a 79-year-old female with past medical history of atrial fibrillat ion, heart failure, COPD, hypertension, pulmonary embolism, hypertension, hyperlipidemia. Patient admitted to the ICU on 05/30/19 after being found in cardiac arrest on arrival to the emergency department on the same day. ROSC was achieved with CPR. She was intubated and required pressors to maintain adequate blood pressure. Her cardiac arrest was thought to be due to ischemia versus heart failure exacerbation causing nonperfusing rhythm. Her respiratory failure was thought to be due to heart failure exacerbation in the setting of pulmonary embolism with recent right heart strain and moderate to severe pulmonary hypertension. Her encephalopathy was thought to be due to anoxia versus infectious from either UTI source or pneumonia source. Her shock was thought to be a combination of distributive and cardiogenic as she had evidence of both. Because of the shock in the setting of cardiac arrest she experienced multiorgan failure including the brain, liver, kidneys. The family decided that she would not wish to have continued aggressive treatment and she was palliatively extubated and subsequently shortly thereafter. - Additional Data Attending physician: Joshua Villatoro MD Discharge Sum: Diag - PCOD Probable Cause of : Cardiac arrest Discharge Sum: Prov - Provider Primary care physician: Abran Santos MD Admitting clinician: Joshua Villatoro Attending physician on admission: Joshua Villatoro Consults: 05/31/19 12:06 Consult to Palliative Care [CONS] Routine Comment: Consulting Provider: Palliative Care [facility] Reason for Consult: palliative consult in setting of worsening heart failure, altered mental status, likely pneumonia Call Completed: Yes Pronouncing clinician: Lynsey Husain
== END 2019-05-31 15:47 | disposition expired ==
LOC: EMEROOARM 09:45 → ICNU 13:06
PROVIDERS: ADMIT Internal Medicine; ATTEND Internal Medicine